=== PATIENT | female | born 1955 | race Caucasian/White ===

== ENCOUNTER → 2019-09-17 15:00 | Outpatient (BNVA) | payer MEDICARE, MEDICAID, SELFPAY | PROVIDERS: PCP Family Medicine; Visit Provider Family Medicine | DX: J30.2 Other seasonal allergic rhinitis (principal); G89.29 Other chronic pain; K21.9 Gastro-esophageal reflux disease without esophagitis; F33.1 Major depressive disorder, recurrent, moderate; D50.9 Iron deficiency anemia, unspecified; J44.9 Chronic obstructive pulmonary disease, unspecified; R60.9 Edema, unspecified; E03.9 Hypothyroidism, unspecified; I10 Essential (primary) hypertension; E78.5 Hyperlipidemia, unspecified; F41.9 Anxiety disorder, unspecified; E78.2 Mixed hyperlipidemia; E11.65 Type 2 diabetes mellitus with hyperglycemia; Z79.4 Long term (current) use of insulin; R30.0 Dysuria; R60.0 Localized edema | CPT/HCPCS: 80053; 80061; 81003; 83036; 84443; 85025 ==

== ENCOUNTER → 2019-11-01 14:42 | Outpatient (BNVA) | payer MEDICARE, MEDICAID, SELFPAY | PROVIDERS: PCP Family Medicine; Visit Provider Nurse Practitioner Family | DX: L03.116 Cellulitis of left lower limb (principal); L03.115 Cellulitis of right lower limb | CPT/HCPCS: 80053; 83880; 85025 ==

== ENCOUNTER → 2020-05-28 13:25 | Outpatient (BNVA) | payer MEDICARE, MEDICAID, SELFPAY | PROVIDERS: PCP Family Medicine; Visit Provider Family Medicine | DX: R32 Unspecified urinary incontinence (principal); F41.9 Anxiety disorder, unspecified; N30.01 Acute cystitis with hematuria | CPT/HCPCS: 81003; 87077; 87086; 87184 ==

== ENCOUNTER → 2021-10-29 09:21 | Outpatient (BNVA) | payer MEDICARE, MEDICAID, SELFPAY | PROVIDERS: PCP Family Medicine; Visit Provider Nurse Practitioner Family | DX: E11.9 Type 2 diabetes mellitus without complications (principal); Z79.4 Long term (current) use of insulin; E55.9 Vitamin D deficiency, unspecified; F32.9 Major depressive disorder, single episode, unspecified; I10 Essential (primary) hypertension | CPT/HCPCS: 80053; 80061; 82306; 82607; 83036; 83735; 84439; 84443; 85025 ==

== ENCOUNTER → 2022-01-08 11:43 | Outpatient (BNVA) | payer MEDICARE, MEDICAID, SELFPAY | PROVIDERS: PCP Family Medicine; Visit Provider Nurse Practitioner Family | DX: E03.9 Hypothyroidism, unspecified (principal); E55.9 Vitamin D deficiency, unspecified; I10 Essential (primary) hypertension; E11.9 Type 2 diabetes mellitus without complications; F41.9 Anxiety disorder, unspecified; J44.9 Chronic obstructive pulmonary disease, unspecified; Z09 Encounter for follow-up examination after completed treatment for conditions other than malignant neoplasm; Z79.4 Long term (current) use of insulin | CPT/HCPCS: 82306; 84443 ==

== ENCOUNTER → 2022-03-11 15:42 | Outpatient (BNVA) | payer MEDICARE, MEDICAID, SELFPAY | PROVIDERS: PCP Family Medicine; Visit Provider Nurse Practitioner Family | DX: Z01.89 Encounter for other specified special examinations (principal) | CPT/HCPCS: 85025 ==

== ENCOUNTER → 2022-03-12 08:43 | Outpatient (BNVA) | payer MEDICARE, MEDICAID, SELFPAY | PROVIDERS: PCP Family Medicine; Visit Provider Nurse Practitioner Family | DX: I10 Essential (primary) hypertension (principal); E11.9 Type 2 diabetes mellitus without complications; J18.9 Pneumonia, unspecified organism; Z79.4 Long term (current) use of insulin; F41.9 Anxiety disorder, unspecified; E78.5 Hyperlipidemia, unspecified | CPT/HCPCS: 80053; 83036; 85025 ==

== ENCOUNTER → 2022-04-16 13:13 | Outpatient (BNVA) | payer MEDICARE, MEDICAID, SELFPAY | PROVIDERS: PCP Family Medicine; Visit Provider Nurse Practitioner Family | DX: E11.22 Type 2 diabetes mellitus with diabetic chronic kidney disease (principal); N18.31 Chronic kidney disease, stage 3a; Z79.4 Long term (current) use of insulin; F41.9 Anxiety disorder, unspecified; B37.2 Candidiasis of skin and nail; R11.0 Nausea; J44.9 Chronic obstructive pulmonary disease, unspecified | CPT/HCPCS: 80053; 80061 ==

== ENCOUNTER → 2022-06-17 16:57 | Outpatient (BNVA) | payer MEDICARE, MEDICAID, SELFPAY | PROVIDERS: PCP Family Medicine; Visit Provider Nurse Practitioner Family | DX: E11.22 Type 2 diabetes mellitus with diabetic chronic kidney disease (principal); I12.9 Hypertensive chronic kidney disease with stage 1 through stage 4 chronic kidney disease, or unspecified chronic kidney disease; N18.31 Chronic kidney disease, stage 3a; Z79.4 Long term (current) use of insulin; E78.5 Hyperlipidemia, unspecified | CPT/HCPCS: 80053; 80061; 83036 ==

== ENCOUNTER → 2022-11-17 14:28 | Outpatient (BNVA) | payer MEDICARE, MEDICAID, SELFPAY | PROVIDERS: PCP Family Medicine; Visit Provider Nurse Practitioner Family | DX: K21.9 Gastro-esophageal reflux disease without esophagitis (principal); E11.22 Type 2 diabetes mellitus with diabetic chronic kidney disease; I12.9 Hypertensive chronic kidney disease with stage 1 through stage 4 chronic kidney disease, or unspecified chronic kidney disease; N18.31 Chronic kidney disease, stage 3a; E55.9 Vitamin D deficiency, unspecified; E78.5 Hyperlipidemia, unspecified; J44.9 Chronic obstructive pulmonary disease, unspecified; E03.9 Hypothyroidism, unspecified; F32.9 Major depressive disorder, single episode, unspecified; F41.9 Anxiety disorder, unspecified; G89.29 Other chronic pain | CPT/HCPCS: 80053; 80061; 83036; 84443 ==

== ENCOUNTER → 2023-01-28 10:33 | Outpatient (BNVA) | payer MEDICARE, MEDICAID, SELFPAY | PROVIDERS: PCP Family Medicine; Visit Provider Nurse Practitioner Family | DX: E55.9 Vitamin D deficiency, unspecified (principal); I10 Essential (primary) hypertension; E78.5 Hyperlipidemia, unspecified; E11.9 Type 2 diabetes mellitus without complications; R05.9 Cough, unspecified; K59.00 Constipation, unspecified; Z79.4 Long term (current) use of insulin; E03.9 Hypothyroidism, unspecified; J44.9 Chronic obstructive pulmonary disease, unspecified; J06.9 Acute upper respiratory infection, unspecified; B35.1 Tinea unguium; R19.7 Diarrhea, unspecified; K21.9 Gastro-esophageal reflux disease without esophagitis; F41.9 Anxiety disorder, unspecified | CPT/HCPCS: 80053; 82306 ==

== ENCOUNTER → 2023-05-25 17:00 | Outpatient (BNVA) | payer MEDICARE, MEDICAID, SELFPAY | PROVIDERS: PCP Family Medicine; Visit Provider Nurse Practitioner Family | DX: N18.31 Chronic kidney disease, stage 3a (principal); I10 Essential (primary) hypertension; E78.5 Hyperlipidemia, unspecified; E11.9 Type 2 diabetes mellitus without complications; Z79.4 Long term (current) use of insulin; E55.9 Vitamin D deficiency, unspecified; R68.89 Other general symptoms and signs; R53.1 Weakness; M25.562 Pain in left knee | CPT/HCPCS: 80053; 80061; 82306; 82607; 82746; 83036; 83550 ==

== ENCOUNTER 2023-11-01 15:10 | Emergency (ER) | payer MEDICARE, MEDICAID, SELFPAY ==
[2023-11-01] VITALS (9 sets, daily range): BP systolic 80–134; BP diastolic 54–78; PULSE 85–93; RESP 16–22; TEMP 36.6; O2SAT 95–98; BMI 48.8
--- NOTE | 2023-11-01 15:11 | ECG_ITS ---
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 Measurements Intervals [place] Rate: 87 P: 26 AL: 185 QRS: 1 QRSD: 74 T: 53 QT: 351 QTc: 423 Interpretive Statements SINUS RHYTHM WITH SINUS ARRHYTHMIA POSSIBLE ANTERIOR MYOCARDIAL INFARCTION , OF INDETERMINATE AGE [30 ms Q WAVE IN V3/V4, OR R < 0.2 mV IN V4] No previous ECG available for comparison Electronically Signed On 11-01-2023 21:42:31 CDT by Gio Lujan M.D. [email or web address] [email or web address].[email or web address]/store/[id number] f
--- NOTE | 2023-11-01 15:16 | XRR_ITS ---
PROCEDURE INFORMATION: Exam: XR Chest Exam date and time: 11/01/2023 3:19 PM Age: 68 years old Clinical indication: Cough and dyspnea; Cough with hemorrhage; Prior surgery; Surgery date: 6+ months; Surgery type: Open heart; Additional info: Dyspnea/cough TECHNIQUE: Imaging protocol: Radiologic exam of the chest. Views: 1 view. COMPARISON: No relevant prior studies available. FINDINGS: Lungs: No focal consolidation. Bibasilar subsegmental atelectasis. Pleural spaces: No evidence of pneumothorax. No evidence of pleural effusion. Heart/Mediastinum: Postsurgical changes of the mediastinum compatible with prior CABG. Cardiomediastinal silhouette is otherwise within normal limits. Bones/joints: No evidence of acute osseous abnormality. XR/XR chest 1V portable [id number] IMPRESSION: 1. No acute cardiopulmonary abnormality.
--- NOTE | 2023-11-01 15:28 | W.ED.CHESTPA ---
HPI - Chest Pain General: Chief Complaint: Chest Pain Stated Complaint: chest pain Time Seen by Provider: 11/01/23 15:15 Source: patient Mode of arrival: ambulatory History of Present Illness: 68-year-old female presents emergency room complaining of chest pain that started about 2 hours prior while she was at rest she did take nitro for it had slight relief of the chest discomfort she taken to before she called EMS also took 324 of aspirin. She was given 1 nitro and route by EMS. On arrival here she is complaining of some shortness of breath she is chronically on 3 L but is satting 97-98% on 2 L. She has not noticed any fever sweats or chills or productive cough no increased in swelling. MD complaint: chest pain Associated symptoms: Deny abdominal pain, dyspnea or fever(s) Review of Systems Const: Denies: fever(s) or chills Card: Denies: chest pain Resp: Denies: dyspnea GI: Denies: abdominal pain : Denies: dysuria, urinary frequency or urinary urgency Musc: Denies: neck pain or back pain Skin/Breast: Denies: rash PFSH ED PFSH: Medical History Enrolled in chronic care management Diabetes Hypertension Hyperlipidemia COPD (chronic obstructive pulmonary disease) Hypothyroid Depression Anxiety Chronic pain Social History Smoking and tobacco/nicotine status: former use of tobacco/nicotine Second hand smoke exposure: Yes Alcohol intake: never Substance/Drug Use: never Lives independently: Yes Household members: none Current gender identity: Female Physical Exam Const: GENERAL APPEARANCE: cooperative and comfortable ORIENTATION/CONSCIOUSNESS: Yes awake, Yes oriented to person, Yes oriented to place and Yes oriented to time HENMT: COMMON NORMALS: normocephalic, atraumatic and hearing grossly normal bilaterally HEAD & SCALP: normocephalic and atraumatic Resp: AUSCULTATION: wheezes and diminished lung sounds on the right Cardio: COMMON NORMALS: regular rate, regular rhythm and No murmurs present (Cardio) RATE: regular rate RHYTHM: regular rhythm GI: COMMON NORMALS: Soft to palpation and No hepatosplenomegaly present AUSCULTATION: Yes normoactive bowel sounds PALPATION: Yes Soft to palpation, No Tenderness to palpation present (GI), No Guarding due to palpation present (GI) and Yes No hepatosplenomegaly present Extremity: COMMON NORMALS: normal to inspection, capillary refill normal and no calf tenderness GENERAL: Yes edema Neuro: SENSORIUM/ORIENTATION: Yes oriented to person, Yes oriented to place and Yes oriented to time Skin: COMMON NORMALS: no rashes or lesions noted GENERAL SKIN EXAM: no rashes or lesions noted Course Vital Signs: Vital signs: Vital Signs Temperature 97.9 F 11/01/23 15:11 Pulse Rate 92 11/01/23 16:42 Respiratory Rate 18 11/01/23 16:42 Blood Pressure 123/74 11/01/23 16:42 Pulse Oximetry 95 11/01/23 16:42 Oxygen Delivery Me thod Room Air 11/01/23 16:42 Oxygen Flow Rate 2 11/01/23 15:52 MDM - Chest Pain Medical Decision Making EKG shows normal sinus rhythm no acute ST changes. Reviewed at the time was completed Care signed out to Dr. Hill at change of shift. See final notes for diagnosis and disposition. Lab Data Radiology Impressions Chest X-Ray 11/01/23 15:16 IMPRESSION: 1. No acute cardiopulmonary abnormality. Laboratory Results Specimen Type Arterial 11/01/23 15:34 Sample Site Radial, right 11/01/23 15:34 ABG pH 7.41 (7.35-7.45) 11/01/23 15:34 ABG pCO2 52.9 mmHg (35-45) H 11/01/23 15:34 ABG pO2 76.5 mmHg (80.0-100.0) L 11/01/23 15:34 ABG PO2/FiO2 Ratio 0 11/01/23 15:34 ABG HCO3 33.2 mmol/L (22-26) H 11/01/23 15:34 ABG O2 Saturation 97.2 11/01/23 15:34 ABG Base Excess 7.1 mmol/L (-2.0-2.0) H 11/01/23 15:34 Faustino Test Pos 11/01/23 15:34 A-a O2 Gradient 7.5 mmHg (5-10) 11/01/23 15:34 Hematocrit 35.1 % (37-47) L 11/01/23 15:34 Hgb O2 Saturation 95.2 % (95-100) 11/01/23 15:34 Carboxyhemoglobin 1.3 %THgb (0.4-20.1) 11/01/23 15:34 Methemoglobin 0.7 % (0.4-1.5) 11/01/23 15:34 Total Hemoglobin 11.4 g/dL (12-16) L 11/01/23 15:34 Sodium 139.0 mmol/L (131-143) 11/01/23 15:34 Potassium 4.4 mmol/L (3.5-5.0) 11/01/23 15:34 Glucose 341.0 mg/dL (70-115) H 11/01/23 15:34 Ionized Calcium 1.2 mmol/L (1.1-1.4) 11/01/23 15:34 O2 Delivery Device Nc 11/01/23 15:34 O2 Liters/Min 2.0 % 11/01/23 15:34 FiO2 28.0 % 11/01/23 15:34 Driver Wheelchair ID [email or web address] 11/01/23 15:34 XR interpretation done by ED provider, pending radiology final review Discharge Plan Discharge Condition: Stable Prescriptions: No Action (DME) NEBULIZER AND SUPPLIES See Rx Instructions .Route .MEDSUPPLY Qty: 1 0RF Rx Instructions: As directed (DME) pen needle, diabetic [Pen Needle] 32 gauge x 5/32 needle See Rx Instructions .ROUTE .MEDSUPPLY Qty: 100 5RF Rx Instructions: As directed albuterol sulfate [ProAir HFA] 90 mcg/actuation HFA aerosol inhaler 2 puff inhalation 6XD PRN (Reason: shortness of breath or wheezing) Qty: 8.5 6RF True Metrix Glucose Test Strip Strip See Rx Instructions .ROUTE .COMPLEX Qty: 100 3RF Dose Instruction: test THREE TIMES DAILY Rx Instructions: test THREE TIMES DAILY (DME) insulin syringe-needle U-100 [BD Insulin Syringe Micro-Fine] 1 mL 28 gauge x 1/2 syringe See Rx Instructions .Route Qty: 100 0RF Rx Instructions: As directed nystatin 100,000 unit/gram cream 1 applic topical QID Qty: 30 3RF pioglitazone [Actos] 45 mg tablet 45 mg PO DAILY 90 Days Qty: 90 1RF esomeprazole magnesium [Nexium] 40 mg capsule,delayed release(DR/EC) 40 mg PO DAILY 90 Days Qty: 90 1RF glipizide 10 mg tablet extended release 24hr 10 mg PO DAILY 90 Days Qty: 90 1RF alprazolam [Xanax] 1 mg tablet 1 mg PO BID PRN (Reason: anxiety) Qty: 60 1RF Breztri Aerosphere 160-9-4.8 mcg/actuation HFA aerosol inhaler 2 inh inhalation BID 30 Days Qty: 10.7 11RF triamcinolone acetonide 0.5 % cream 1 applic topical TID Qty: 15 3RF nitroglycerin 0.4 mg tablet, sublingual 0.4 mg sublingual Q5M PRN (Reason: chest pain) Qty: 25 4RF Rx Instructions: do not exceed 3 doses per episode (DME) EASY MAX Z TALKING METER STRIPS See Rx Instructions .Route .MEDSUPPLY Qty: 50 6RF Rx Instructions: TESTING TWICE DAILY docusate sodium 250 mg capsule 250 mg PO DAILY Qty: 30 2RF magnesium citrate [Citrate of Magnesia] Solution 296 ml PO .now Qty: 296 1RF tolterodine [Detrol] 1 mg tablet 1 mg PO BID Qty: 60 0RF Referrals: Jana Hall NP [Primary Care Provider] - Coding Level of Care Code ED Disease Intervention Specialist for Devonte Plasencia
[2023-11-01 15:46] LABS: ABG PCO2 52.9 mmHg (35-45); ABG PH Result 7.41 (7.35-7.45); Alveolar-Arterial Oxygen Gradi 7.5 mmHg (5-10); Arterial Blood Gas Hematocrit 35.1 % (37-47); Base Excess ABG 7.1 mmol/L (-2.0-2.0); Blood Gas Allen Test Pos; Blood Gas Operator Identificat glc; Blood Gas Sample Site Radial, right; Blood Gas Sample Type Arterial; Carboxyhemoglobin 1.3 %THgb (0.4-20.1); HCO3 ABG 33.2 mmol/L (22-26); HGB O2 Sat 95.2 % (95-100); Ionized Calcium Level - ABG 1.2 mmol/L (1.1-1.4); Methemoglobin 0.7 % (0.4-1.5); Oxygen Device NC; Oxygen Saturation ABG 97.2; PO2 ABG 76.5 mmHg (80.0-100.0); PO2 FiO2 Ratio Arterial Blood 0; Potassium Level - ABG 4.4 mmol/L (3.5-5.0); Total Hemoglobin 11.4 g/dL (12-16)
[2023-11-01] MEDS: ondansetron 2 mg/ML SDV 2 mL 4 MG IVP (15:51)
--- NOTE | 2023-11-01 17:16 | ECG_ITS ---
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 Measurements Intervals [place] Rate: 84 P: 0 IA: 141 QRS: 1 QRSD: 82 T: 74 QT: 361 QTc: 429 Interpretive Statements SINUS RHYTHM WITH SINUS ARRHYTHMIA NONSPECIFIC T-WAVE ABNORMALITY Compared to ECG 11/01/2023 15:11:36 T-wave abnormality now present Myocardial infarct finding no longer present Electronically Signed On 11-02-2023 18:35:56 CDT by Gio Lujan M.D. [id number]
[2023-11-01] MEDS: ketorolac 30 mg/mL INJ IVP (17:55)
[2023-11-01 18:07] LABS: Basophils # 0.1 10^3/uL (0.0-0.1); Basophils % 0.8 %; Eosinophils # 0.6 10^3/uL (0.0-0.8); Eosinophils % 7.3 %; Hematocrit 37.5 % (36-47); Lymphocytes # 3.2 10^3/uL (0.8-4.8); Lymphocytes % 43.1 %; Mean Corpuscular HGB Conc 30.9 g/dL (30-55); Mean Corpuscular Hemoglobin 27.8 pg (27-33); Mean Corpuscular Volume 89.9 fl (85-98); Mean Platelet Volume 10.2 fL (7.4-10.4); Monocytes # 0.4 10^3/uL (0.2-0.9); Monocytes % 5.9 %; Neutrophils # 3.18 10^3/uL (1.8-7.7); Neutrophils % 42.5 %; Nucleated Red Blood Cells % 0 %; Platelet Count 357 10^3/cmm (157-399); Red Blood Count 4.17 10^6/uL (3.85-5.65); Red Cell Distribution Width 14.7 % (12.1-15.1); White Blood Count 7.49 10^3/uL (3.29-11.43)
[2023-11-01 18:33] LABS: Troponin(5th) Baseline 26 ng/L (0-10)
[2023-11-01 18:43] LABS: Alanine Aminotransferase 14 U/L (0-33); Albumin Level 3.8 g/dL (3.5-5.2); Alkaline Phosphatase 175 U/L (35-105); Anion Gap 14.9 (5-19); Aspartate Amino Transferase 22 U/L (0-32); Blood Urea Nitrogen 16 mg/dL (8-23); Calcium 8.8 mg/dL (8.5-10.5); Carbon Dioxide 31 mmol/L (22-29); Chloride 94 mmol/L (98-107); Creatinine Clr Calc Pharmacy 76.1282; Glucose 281 mg/dL (65-115); Osmolality Calculated 291 mOsm/kg (285-295); Potassium 4.9 mmol/L (3.5-5.1); Sodium 135 mmol/L (136-145); Total Bilirubin 0.2 mg/dL (0.15-1.2); Total Protein 6.8 g/dL (6.6-8.7)
[2023-11-01 18:48] LABS: Ketone (Acetest) Serum Negative (Negative)
[2023-11-01 20:53] LABS: Troponin 5 2HR 31.26 ng/L (0-10); Troponin 5 2HR Delta 5.26 ABS# (0-10)
== END 2023-11-01 22:58 | disposition home or self-care (01) ==
PROVIDERS: Family Medicine; Emergency Provider Emergency Medicine; PCP Nurse Practitioner Family
DX: R07.9 Chest pain, unspecified (principal); Z79.84 Long term (current) use of oral hypoglycemic drugs; E11.9 Type 2 diabetes mellitus without complications; I10 Essential (primary) hypertension; E78.5 Hyperlipidemia, unspecified; J44.9 Chronic obstructive pulmonary disease, unspecified; Z87.891 Personal history of nicotine dependence
CPT/HCPCS: 36415; 36600; 71045; 80051; 80053; 82009; 82330; 82805; 83605; 84484; 85025; 93005; 96374; 96375; 99285; J1885; J2405

== ENCOUNTER → 2023-11-17 13:35 | Outpatient (BNVA) | payer MEDICARE, MEDICAID, SELFPAY | PROVIDERS: PCP Nurse Practitioner Family; Visit Provider Nurse Practitioner Family | DX: N18.31 Chronic kidney disease, stage 3a (principal); Z79.4 Long term (current) use of insulin; E11.9 Type 2 diabetes mellitus without complications; E55.9 Vitamin D deficiency, unspecified; E03.9 Hypothyroidism, unspecified; F41.9 Anxiety disorder, unspecified; F33.0 Major depressive disorder, recurrent, mild; I10 Essential (primary) hypertension; L01.00 Impetigo, unspecified | CPT/HCPCS: 80053; 80061; 83036; 85025 ==

== ENCOUNTER 2024-03-26 04:55 | Inpatient (IN) | payer MEDICARE, MEDICAID, SELFPAY ==
[2024-03-26] VITALS (33 sets, daily range): BP systolic 114–192; BP diastolic 58–97; PULSE 52–113; RESP 13–28; TEMP 36.7; O2SAT 92–98; BMI 43.5
--- NOTE | 2024-03-26 04:58 | ECG_ITS ---
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 Measurements Intervals [place] Rate: 114 P: 61 DE: 175 QRS: 13 QRSD: 78 T: 28 QT: 323 QTc: 446 Interpretive Statements SINUS TACHYCARDIA SEPTAL MYOCARDIAL INFARCTION , PROBABLY OLD [40+ ms Q WAVE IN V1/V2] Compared to ECG 11/01/2023 17:51:12 Myocardial infarct finding now present Sinus rhythm no longer present Sinus arrhythmia no longer present T-wave abnormality no longer present Electronically Signed On 03-26-2024 16:07:07 CDT by Daniel Villalta M.D. [id number]
--- NOTE | 2024-03-26 05:10 | XRR_ITS ---
PROCEDURE INFORMATION: Exam: XR Chest Exam date and time: 03/26/2024 5:17 AM Age: 68 years old Clinical indication: Shortness of breath; Chest pressure; Prior surgery; Surgery date: 6+ months; Surgery type: Open heart; Patient HX: C/O chest pain with SOB. History of copd. ; Additional info: Cp SOB TECHNIQUE: Imaging protocol: Radiologic exam of the chest. Views: 1 view. COMPARISON: CR XR chest 1V portable [id number] 11/01/2023 3:19 PM FINDINGS: Tubes, catheters and devices: Median sternotomy suture wires. Lungs: Mild bibasilar hypoventilatory changes. Pleural spaces: Unremarkable. No pleural effusion. No pneumothorax. Heart/Mediastinum: Unremarkable. No cardiomegaly. Bones/joints: Unremarkable. XR/XR chest 1V portable [id number] IMPRESSION: No acute findings.
[2024-03-26] MEDS: metoprolol tartrate 1 mg/1 mL SDV 5 mL 5 MG IVP (05:31)
--- NOTE | 2024-03-26 05:43 | PC.NURSE ---
attempted to draw labs from pt x3 and also attempted to draw from her IV without success. Lab was contacted to come draw the pt.
--- NOTE | 2024-03-26 05:48 | ED_ITS ---
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 She says she has no cardiac history, but has sternal wires on her chest x-ray. She presents after waking this morning with chest discomfort. She says she has been more short of breath lately, no increased cough or no fever. She was found by EMS evidently to have a heart rate in the 200s. She received promethazine, 200 mL bolus, and aspirin, and evidently this resolved her supraventricular tachycardia. Her heart rate came down to the 120s. Her chest pain is gone. She still exhibiting shortness of breath she says. She relates to me that she wears 3 L of oxygen at all times at home. Related Data Home Medications Medication Instructions Recorded Confirmed insulin glargine 100 unit/mL 10 unit SUBCUT DAILY 03/01/24 03/26/24 subcutaneous solution (Lantus U-100 Insulin) albuterol sulfate 2.5 mg/3 mL 2.5 mg inhalation TID PRN 03/26/24 03/26/24 (0.083 %) solution for nebulization Shortness Of Breath Or Wheezing albuterol sulfate 90 mcg/actuation 2 puff inhalation 6XD PRN 03/26/24 03/26/24 aerosol inhaler (Ventolin HFA) Shortness Of Breath Or Wheezing glipizide 10 mg tablet, extended 20 mg PO QAM 03/26/24 03/26/24 release 24 hr Previous Rx's Medication Instructions Recorded NEBULIZER AND SUPPLIES #1 ea 11/20/21 EASY MAX Z TALKING METER STRIPS #50 ea 07/21/23 budesonide 160 mcg-glycopyr 9 2 inh inhalation BID 30 days #10.7 10/13/23 mcg-formot 4.8 mcg/actuation HFA grams inhaler (Breztri Aerosphere) nitroglycerin 0.4 mg sublingual 0.4 mg sublingual Q5M PRN chest 11/04/23 tablet pain #25 tabs alprazolam 1 mg tablet 1 mg PO BID anxiety 30 days #60 03/01/24 tabs esomeprazole magnesium 40 mg 40 mg PO DAILY 90 days #90 caps 03/01/24 capsule,delayed release (Nexium) pen needle, diabetic 32 gauge x #100 ea 03/01/24 (Pen Needle) pioglitazone 45 mg tablet (Actos) 45 mg PO DAILY 90 days #90 tabs 03/01/24 montelukast 10 mg tablet 10 mg PO DAILY 90 days #90 tabs 03/23/24 Allergies Allergy/AdvReac Type Severity Reaction Status Date / Time Biguanides Allergy Unknown Unknown Verified 03/26/24 05:09 amitriptyline Allergy Unknown Verified 03/26/24 05:09 dapagliflozin [From Farxiga] Allergy rash Verified 03/26/24 05:09 desvenlafaxine [From Pristiq] Allergy worsens Verified 03/26/24 05:09 depression diazepam Allergy Unknown Verified 03/26/24 05:09 diphenhydramine Allergy wheezing Verified 03/26/24 05:09 [From Benadryl] hydrocodone Allergy itching Verified 03/26/24 05:09 meloxicam Allergy gi symptoms Verified 03/26/24 05:09 metformin Allergy gi symptoms Verified 03/26/24 05:09 moxifloxacin [From Avelox] Allergy Unknown Verified 03/26/24 05:09 rofecoxib [From Vioxx] Allergy Unknown Verified 03/26/24 05:09 sertraline [From Zoloft] Allergy worsens Verified 03/26/24 05:09 depression Sulfa (Sulfonamide Allergy gi Verified 03/26/24 05:09 Antibiotics) symptoms, rash atorvastatin [From Lipitor] AdvReac myalgias Verified 03/26/24 05:09 lorazepam [From Ativan] AdvReac myoclonic Verified 03/26/24 05:09 jerking paroxetine [From Paxil] AdvReac worsens Verified 03/26/24 05:09 depression tirzepatide [From Mounjaro] AdvReac ADR-Diarrhe Verified 03/26/24 05:09 a [facility] ED 2 PFSH: Medical History (Updated 03/26/24 @ 19:55 by Radha Cleaning MD) Obesity Coronary artery disease Enrolled in chronic care management Diabetes Hypertension Hyperlipidemia COPD (chronic obstructive pulmonary disease) Hypothyroid Depression Anxiety Chronic pain Surgical History (Updated 03/26/24 @ 09:55 by Loy Zhou MD) History of hysterectomy History of coronary artery bypass graft Social History (Updated 03/26/24 @ 09:56 by Loy Zhou MD) Smoking and tobacco/nicotine status: former use of tobacco/nicotine Second hand smoke exposure: Yes Alcohol intake: never Substance/Drug Use: never Lives independently: Yes Household members: none Current gender identity: Female Physical Exam 2 Const: COMMON NORMALS: no acute distress GENERAL APPEARANCE: cooperative, anxious, ill appearing (Mildly) and frail appearing O RIENTATION/CONSCIOUSNESS: Yes awake, Yes oriented to person and Yes oriented to place HENMT: COMMON NORMALS: normocephalic HEAD & SCALP: normocephalic FACE & SINUS: face symmetric Eye: COMMON NORMALS: Equal, round and reactive pupils present and EOMs intact bilaterally PUPIL: Yes Equal, round and reactive pupils present Neck/C-Spine: GENERAL: Yes trachea midline Resp: COMMON NORMALS: normal respiratory effort and clear to auscultation bilaterally AUSCULTATION: clear to auscultation bilaterally Cardio: COMMON NORMALS: regular rhythm RATE: tachycardic RHYTHM: regular rhythm Neuro: SENSORIUM/ORIENTATION: Yes oriented to person and Yes oriented to place Course 2 Vital Signs: Vital signs: Vital Signs Temperature 98.0 F 03/26/24 04:57 Pulse Rate 78 03/26/24 20:17 Respiratory Rate 16 03/26/24 20:17 Blood Pressure 143/58 03/26/24 17:09 Pulse Oximetry 97 03/26/24 20:17 Oxygen Delivery Me thod Nasal Cannula 03/26/24 20:17 Oxygen Flow Rate 2 03/26/24 20:17 MDM - Chest Pain Medical Decision Making 68-year-old female, with history of COPD and some sort of heart disease. She presents with chest discomfort and tachycardia. Tachycardia is improved. Blood pressure is much improved, now 115/64. Laboratories pending. Radiology is pending as well. She will be checked out at shift change. Lab Data 03/26/24 06:47 03/26/24 06:47 Radiology Impressions Chest X-Ray 03/26/24 05:10 IMPRESSION: No acute findings. Laboratory Results WBC 8.51 10^3/uL (3.29-11.43) 03/26/24 06:47 RBC 4.45 10^6/uL (3.85-5.65) 03/26/24 06:47 Hgb 12.50 g/dL (11.27-16.99) 03/26/24 06:47 Hct 40.6 % (36-47) 03/26/24 06:47 MCV 91.2 fl (85-98) 03/26/24 06:47 MCH 28.1 pg (27-33) 03/26/24 06:47 MCHC 30.8 g/dL (30-55) 03/26/24 06:47 RDW 14.7 % (12.1-15.1) 03/26/24 06:47 Plt Count 322 10^3/cmm (157-399) 03/26/24 06:47 MPV 10.7 fL (7.4-10.4) H 03/26/24 06:47 Neut % (Auto) 58.0 % 03/26/24 06:47 Lymph % (Auto) 29.4 % 03/26/24 06:47 Laurens % (Auto) 6.8 % 03/26/24 06:47 Eos % (Auto) 4.0 % 03/26/24 06:47 Baso % (Auto) 0.9 % 03/26/24 06:47 Neut # (Auto) 4.93 10^3/uL (1.8-7.7) 03/26/24 06:47 Lymph # (Auto) 2.5 10^3/uL (0.8-4.8) 03/26/24 06:47 [place]rens # (Auto) 0.6 10^3/uL (0.2-0.9) 03/26/24 06:47 Eos # (Auto) 0.3 10^3/uL (0.0-0.8) 03/26/24 06:47 Baso # (Auto) 0.1 10^3/uL (0.0-0.1) 03/26/24 06:47 Nucleated RBC % (auto) 0 % 03/26/24 06:47 Nucleated RBCs # 0.0 /100WBC 03/26/24 06:47 PT 13.10 SECONDS (12.1-14.9) 03/26/24 08:00 INR 0.96 (0.8-1.2) 03/26/24 08:00 APTT 32.3 SECONDS (23.9-36.7) 03/26/24 08:00 Sodium 137 mmol/L (136-145) 03/26/24 06:47 Potassium 4.0 mmol/L (3.5-5.1) 03/26/24 06:47 Chloride 98 mmol/L (98-107) 03/26/24 06:47 Carbon Dioxide 27 mmol/L (22-29) 03/26/24 06:47 Anion Gap 16.0 (5-19) 03/26/24 06:47 BUN 15 mg/dL (8-23) 03/26/24 06:47 Creatinine 0.7 mg/dL (0.5-0.9) 03/26/24 06:47 GFR Calculation 83.0 mL/min (90-130) L 03/26/24 06:47 Glucose 304 mg/dL (65-115) H 03/26/24 06:47 Calculated Osmolality 296 mOsm/kg (285-295) H 03/26/24 06:47 Calcium 8.7 mg/dL (8.5-10.5) 03/26/24 06:47 Magnesium 2.1 mg/dL (1.7-2.3) 03/26/24 06:47 Total Bilirubin 0.2 mg/dL (0.15-1.2) 03/26/24 06:47 AST 18 U/L (0-32) 03/26/24 06:47 ALT 13 U/L (0-33) 03/26/24 06:47 Alkaline Phosphatase 170 U/L (35-105) H 03/26/24 06:47 Creatine Kinase 178 U/L (26-192) 03/26/24 06:47 Troponin T Baseline 65 ng/L (0-10) H 03/26/24 06:47 Troponin T 120 Minute 112.9 ng/L (0-10) H 03/26/24 08:00 Delta Troponin T 47.9 ABS# (0-10) H* 03/26/24 08:00 NT-Pro-B Natriuret Pep 150 pg/mL (0-125) H 03/26/24 06:47 Total Protein 7.3 g/dL (6.6-8.7) 03/26/24 06:47 Albumin 3.6 g/dL (3.5-5.2) 03/26/24 06:47 Globulin 3.7 g/dL (1.3-4.6) 03/26/24 06:47 TSH 5.35 uIU/mL (0.27-4.20) H 03/26/24 06:47 Discharge Plan Discharge Patient Disposition: Placed in Observation Admit Provider: Loy Zhou Clinical Impression: Chest pain, Non-ST elevated myocardial infarction Coding Level of Care Code ED Senior Environmental Practice Leader for Chg Fwd Documented by User: Ibis Alcazar MD 03/26/24 09:19 HPI - Chest Pain 2 General: Chief Complaint: Chest Pain Stated Complaint: fast HR Time Seen by Provider: 03/26/24 05:00 Related Data Home Medications Medication Instructions Recorded Confirmed insulin glargine 100 unit/mL 10 unit SUBCUT DAILY 03/01/24 03/26/24 subcutaneous solution (Lantus U-100 Insulin) albuterol sulfate 2.5 mg/3 mL 2.5 mg inhalation TID PRN 03/26/24 03/26/24 (0.083 %) solution for nebulization Shortness Of Breath Or Wheezing albuterol sulfate 90 mcg/actuation 2 puff inhalation 6XD PRN 03/26/24 03/26/24 aerosol inhaler (Ventolin HFA) Shortness Of Breath Or Wheezing glipizide 10 mg tablet, extended 20 mg PO QAM 03/26/24 03/26/24 release 24 hr Previous Rx's Medication Instructions Recorded NEBULIZER AND SUPPLIES #1 ea 11/20/21 EASY MAX Z TALKING METER STRIPS #50 ea 07/21/23 budesonide 160 mcg-glycopyr 9 2 inh inhalation BID 30 days #10.7 10/13/23 mcg-formot 4.8 mcg/actuation HFA grams inhaler (Breztri Aerosphere) nitroglycerin 0.4 mg sublingual 0.4 mg sublingual Q5M PRN chest 11/04/23 tablet pain #25 tabs alprazolam 1 mg tablet 1 mg PO BID anxiety 30 days #60 03/01/24 tabs esomeprazole magnesium 40 mg 40 mg PO DAILY 90 days #90 caps 03/01/24 capsule,delayed release (Nexium) pen needle, diabetic 32 gauge x #100 ea 03/01/24/32 (Pen Needle) pioglitazone 45 mg tablet (Actos) 45 mg PO DAILY 90 days #90 tabs 03/01/24 montelukast 10 mg tablet 10 mg PO DAILY 90 days #90 tabs 03/23/24 Allergies Allergy/AdvReac Type Severity Reaction Status Date / Time Biguanides Allergy Unknown Unknown Verified 03/26/24 05:09 amitriptyline Allergy Unknown Verified 03/26/24 05:09 dapagliflozin [From Farxiga] Allergy rash Verified 03/26/24 05:09 desvenlafaxine [From Pristiq] Allergy worsens Verified 03/26/24 05:09 depression diazepam Allergy Unknown Verified 03/26/24 05:09 diphenhydramine Allergy wheezing Verified 03/26/24 05:09 [From Benadryl] hydrocodone Allergy itching Verified 03/26/24 05:09 meloxicam Allergy gi symptoms Verified 03/26/24 05:09 metformin Allergy gi symptoms Verified 03/26/24 05:09 moxifloxacin [From Avelox] Allergy Unknown Verified 03/26/24 05:09 rofecoxib [From Vioxx] Allergy Unknown Verified 03/26/24 05:09 sertraline [From Zoloft] Allergy worsens Verified 03/26/24 05:09 depression Sulfa (Sulfonamide Allergy gi Verified 03/26/24 05:09 Antibiotics) symptoms, rash atorvastatin [From Lipitor] AdvReac myalgias Verified 03/26/24 05:09 lorazepam [From Ativan] AdvReac myoclonic Verified 03/26/24 05:09 jerking paroxetine [From Paxil] AdvReac worsens Verified 03/26/24 05:09 depression tirzepatide [From Mounjaro] AdvReac ADR-Diarrhe Verified 03/26/24 05:09 a [facility] ED 2 PFSH: Medical History (Updated 03/26/24 @ 19:55 by Radha Cleaning MD) Obesity Coronary artery disease Enrolled in chronic care management Diabetes Hypertension Hyperlipidemia COPD (chronic obstructive pulmonary disease) Hypothyroid Depression Anxiety Chronic pain Surgical History (Updated 03/26/24 @ 09:55 by Loy Zhou MD) History of hysterectomy History of coronary artery bypass graft Social History (Updated 03/26/24 @ 09:56 by Loy Zhou MD) Smoking and tobacco/nicotine status: former use of tobacco/nicotine Second hand smoke exposure: Yes Alcohol intake: never Substance/Drug Use: never Lives independently: Yes Household members: none Current gender identity: Female Course 2 Vital Signs: Vital signs: Vital Signs Temperature 98.0 F 03/26/24 04:57 Pulse Rate 78 03/26/24 20:17 Respiratory Rate 16 03/26/24 20:17 Blood Pressure 143/58 03/26/24 17:09 Pulse Oximetry 97 03/26/24 20:17 Oxygen Delivery Me thod Nasal Cannula 03/26/24 20:17 Oxygen Flow Rate 2 03/26/24 20:17 MDM - Chest Pain Medical Decision Making 68-year-old female, with history of COPD and some sort of heart disease. She presents with chest discomfort and tachycardia. Tachycardia is improved. Blood pressure is much improved, now 115/64. Laboratories pending. Radiology is pending as well. She will be checked out at shift change. Patient care transitioned to [place] at shift change: Medical decision making: Chest x-ray: Sternotomy wires. No acute process. No infiltrate. No pneumothorax. This was reviewed and interpreted by myself the ER physician. Lab Review: Laboratory results were reviewed and interpreted by myself the emergency room physician. I reviewed the patient's medical record. Reexamination: Patient has resolved chest pain. Expresses understanding of needing to be admitted. Patient remained stable. No increased work of breathing. No altered mental status. No focal motor deficits. Consultation: I spoke with Dr. Zhou who agrees to admit the patient to the [facility]. Assessment and plan: Chest pain Non-ST elevation myocardial infarction -I discussed the patient with the hospitalist on-call who is admitting the patient. - Discussed findings and plan with patient. Answered any questions. - All laboratory values were reviewed and interpreted personally by myself, the ER physician - All imaging was reviewed and interpreted personally by myself, the ER physician. - Evaluation and treatment of this problem were appropriate in the emergency setting Lab Data 03/26/24 06:47 03/26/24 06:47 Radiology Impressions Chest X-Ray 03/26/24 05:10 IMPRESSION: No acute findings. Laboratory Results WBC 8.51 10^3/uL (3.29-11.43) 03/26/24 06:47 RBC 4.45 10^6/uL (3.85-5.65) 03/26/24 06:47 Hgb 12.50 g/dL (11.27-16.99) 03/26/24 06:47 Hct 40.6 % (36-47) 03/26/24 06:47 MCV 91.2 fl (85-98) 03/26/24 06:47 MCH 28.1 pg (27-33) 03/26/24 06:47 MCHC 30.8 g/dL (30-55) 03/26/24 06:47 RDW 14.7 % (12.1-15.1) 03/26/24 06:47 Plt Count 322 10^3/cmm (157-399) 03/26/24 06:47 MPV 10.7 fL (7.4-10.4) H 03/26/24 06:47 Neut % (Auto) 58.0 % 03/26/24 06:47 Lymph % (Auto) 29.4 % 03/26/24 06:47 Laurens % (Auto) 6.8 % 03/26/24 06:47 Eos % (Auto) 4.0 % 03/26/24 06:47 Baso % (Auto) 0.9 % 03/26/24 06:47 Neut # (Auto) 4.93 10^3/uL (1.8-7.7) 03/26/24 06:47 Lymph # (Auto) 2.5 10^3/uL (0.8-4.8) 03/26/24 06:47 [place]rens # (Auto) 0.6 10^3/uL (0.2-0.9) 03/26/24 06:47 Eos # (Auto) 0.3 10^3/uL (0.0-0.8) 03/26/24 06:47 Baso # (Auto) 0.1 10^3/uL (0.0-0.1) 03/26/24 06:47 Nucleated RBC % (auto) 0 % 03/26/24 06:47 Nucleated RBCs # 0.0 /100WBC 03/26/24 06:47 PT 13.10 SECONDS (12.1-14.9) 03/26/24 08:00 INR 0.96 (0.8-1.2) 03/26/24 08:00 APTT 32.3 SECONDS (23.9-36.7) 03/26/24 08:00 Sodium 137 mmol/L (136-145) 03/26/24 06:47 Potassium 4.0 mmol/L (3.5-5.1) 03/26/24 06:47 Chloride 98 mmol/L (98-107) 03/26/24 06:47 Carbon Dioxide 27 mmol/L (22-29) 03/26/24 06:47 Anion Gap 16.0 (5-19) 03/26/24 06:47 BUN 15 mg/dL (8-23) 03/26/24 06:47 Creatinine 0.7 mg/dL (0.5-0.9) 03/26/24 06:47 GFR Calculation 83.0 mL/min (90-130) L 03/26/24 06:47 Glucose 304 mg/dL (65-115) H 03/26/24 06:47 Calculated Osmolality 296 mOsm/kg (285-295) H 03/26/24 06:47 Calcium 8.7 mg/dL (8.5-10.5) 03/26/24 06:47 Magnesium 2.1 mg/dL (1.7-2.3) 03/26/24 06:47 Total Bilirubin 0.2 mg/dL (0.15-1.2) 03/26/24 06:47 AST 18 U/L (0-32) 03/26/24 06:47 ALT 13 U/L (0-33) 03/26/24 06:47 Alkaline Phosphatase 170 U/L (35-105) H 03/26/24 06:47 Creatine Kinase 178 U/L (26-192) 03/26/24 06:47 Troponin T Baseline 65 ng/L (0-10) H 03/26/24 06:47 Troponin T 120 Minute 112.9 ng/L (0-10) H 03/26/24 08:00 Delta Troponin T 47.9 ABS# (0-10) H* 03/26/24 08:00 NT-Pro-B Natriuret Pep 150 pg/mL (0-125) H 03/26/24 06:47 Total Protein 7.3 g/dL (6.6-8.7) 03/26/24 06:47 Albumin 3.6 g/dL (3.5-5.2) 03/26/24 06:47 Globulin 3.7 g/dL (1.3-4.6) 03/26/24 06:47 TSH 5.35 uIU/mL (0.27-4.20) H 03/26/24 06:47 All radiology interpretation(s) finalized by discharge Discharge Plan Discharge Patient Disposition: Placed in Observation Admit Provider: Loy Zhou Clinical Impression: Chest pain, Non-ST elevated myocardial infarction Coding Level of Care Code ED Senior Environmental Practice Leader for Devonte Plasencia
--- NOTE | 2024-03-26 06:38 | PC.NURSE ---
pts bed was changed with clean, dry sheets and she was wiped with soap and water and dried at this time after an incontinent episode
[2024-03-26 07:15] LABS: Basophils # 0.1 10^3/uL (0.0-0.1); Basophils % 0.9 %; Eosinophils # 0.3 10^3/uL (0.0-0.8); Hematocrit 40.6 % (36-47); Lymphocytes # 2.5 10^3/uL (0.8-4.8); Lymphocytes % 29.4 %; Mean Corpuscular HGB Conc 30.8 g/dL (30-55); Mean Corpuscular Hemoglobin 28.1 pg (27-33); Mean Corpuscular Volume 91.2 fl (85-98); Mean Platelet Volume 10.7 fL (7.4-10.4); Monocytes # 0.6 10^3/uL (0.2-0.9); Monocytes % 6.8 %; Neutrophils # 4.93 10^3/uL (1.8-7.7); Nucleated Red Blood Cells % 0 %; Platelet Count 322 10^3/cmm (157-399); Red Blood Count 4.45 10^6/uL (3.85-5.65); Red Cell Distribution Width 14.7 % (12.1-15.1); White Blood Count 8.51 10^3/uL (3.29-11.43)
--- NOTE | 2024-03-26 07:34 | ECG_ITS ---
[facility] Test Date: 2024-03-26 Pat Name: Sabrina Delvalle Department: Room: Gender: Female Nut Grinder: : 1955 Requested By: Rik Cartwright Order Number: [id number] Duke MD: Daniel Villalta M.D. Measurements Intervals Laura Rate: 93 P: 16 HI: 185 QRS: 22 QRSD: 90 T: 63 QT: 353 QTc: 439 Interpretive Statements SINUS RHYTHM NONSPECIFIC T-WAVE ABNORMALITY Compared to ECG 03/26/2024 04:58:45 T-wave abnormality now present Sinus tachycardia no longer present Myocardial infarct finding no longer present Electronically Signed On 03-26-2024 16:09:49 CDT by Daniel Villalta M.D. [email or web address]
[2024-03-26 07:35] LABS: Troponin(5th) Baseline 65 ng/L (0-10)
[2024-03-26 07:42] LABS: Alanine Aminotransferase 13 U/L (0-33); Albumin Level 3.6 g/dL (3.5-5.2); Alkaline Phosphatase 170 U/L (35-105); Aspartate Amino Transferase 18 U/L (0-32); Blood Urea Nitrogen 15 mg/dL (8-23); Calcium 8.7 mg/dL (8.5-10.5); Carbon Dioxide 27 mmol/L (22-29); Chloride 98 mmol/L (98-107); Creatine Phosphokinase 178 U/L (26-192); Creatinine Clr Calc Pharmacy 76.7388; Globulin 3.7 g/dL (1.3-4.6); Glucose 304 mg/dL (65-115); NT Pro B Type Natriuretic Pept 150 pg/mL (0-125); Osmolality Calculated 296 mOsm/kg (285-295); Sodium 137 mmol/L (136-145); Thyroid Stimulating Hormone 5.35 uIU/mL (0.27-4.20); Total Bilirubin 0.2 mg/dL (0.15-1.2); Total Protein 7.3 g/dL (6.6-8.7)
[2024-03-26 08:34] LABS: Troponin 5 2HR 112.9 ng/L (0-10); Troponin 5 2HR Delta 47.9 ABS# (0-10)
[2024-03-26 08:57] LABS: INR 0.96 (0.8-1.2); Partial Thromboplastin Time 32.3 SECONDS (23.9-36.7)
[2024-03-26 09:30] LABS: Magnesium 2.1 mg/dL (1.7-2.3)
--- NOTE | 2024-03-26 09:30 | PM.HP ---
Providers/Chief Complaint Admitting Physician: Loy Zhou MD, hospitalist Primary Care Provider: Jana Hall NP Chief Complaint: fast HR History of Present Illness Sabrina Delvalle is a 68 year old female who presented to the hospital feeling severe heavy chest discomfort. She states this started around 10 PM. She tried to take her blood pressure, but it just said air. It was associated with shortness of breath, and some nausea. She denies any history of chest discomfort like this. She called the ambulance services, who told her her heart rate was very high. Strip indicates a narrow complex tachycardia of 208, identified as SVT. Will giving her fluids, and some promethazine for nausea she converted into sinus rhythm. Chest discomfort went away. She has a past history of coronary disease, oxygen dependent COPD, and multiple other medical problems. She currently reports she is chest discomfort free. She denies any fever, ill contacts. She states yesterday was the anniversary of the of her daughter, and she did not do anything all day, mainly sleeping until waking at night and experiencing the discomfort. Review of Systems General: Reports: 10 or more systems reviewed and unremarkable except in HPI and below Card: Reports: chest pain; Denies: palpitations Resp: Reports: dyspnea; Denies: productive cough or non-productive cough GI: Reports: nausea; Denies: abdominal pain, hematochezia or melena Medications/Allergies Home Medications Medication Instructions Recorded Confirmed Last Taken Type NEBULIZER AND SUPPLIES #1 ea 11/20/21 03/26/24 Unknown Rx EASY MAX Z TALKING METER STRIPS #50 ea 07/21/23 03/26/24 Unknown Rx budesonide 160 mcg-glycopyr 9 2 inh inhalation BID 30 days #10.7 10/13/23 03/26/24 03/25/24 Rx mcg-formot 4.8 mcg/actuation HFA grams inhaler (Breztri Aerosphere) nitroglycerin 0.4 mg sublingual 0.4 mg sublingual Q5M PRN chest 11/04/23 03/26/24 Unknown Rx tablet pain #25 tabs alprazolam 1 mg tablet 1 mg PO BID anxiety 30 days #60 03/01/24 03/26/24 03/25/24 Rx tabs esomeprazole magnesium 40 mg 40 mg PO DAILY 90 days #90 caps 03/01/24 03/26/24 03/25/24 Rx capsule,delayed release (Nexium) insulin glargine 100 unit/mL 10 unit SUBCUT DAILY 03/01/24 03/26/24 03/25/24 History subcutaneous solution (Lantus U-100 Insulin) pen needle, diabetic 32 gauge x #100 ea 03/01/24 03/26/24 Unknown Rx (Pen Needle) pioglitazone 45 mg tablet (Actos) 45 mg PO DAILY 90 days #90 tabs 03/01/24 03/26/24 03/25/24 Rx montelukast 10 mg tablet 10 mg PO DAILY 90 days #90 tabs 03/23/24 03/26/24 03/25/24 Rx albuterol sulfate 2.5 mg/3 mL 2.5 mg inhalation TID PRN 03/26/24 03/26/24 Unknown History (0.083 %) solution for nebulization Shortness Of Breath Or Wheezing albuterol sulfate 90 mcg/actuation 2 puff inhalation 6XD PRN 03/26/24 03/26/24 Unknown History aerosol inhaler (Ventolin HFA) Shortness Of Breath Or Wheezing glipizide 10 mg tablet, extended 20 mg PO QAM 03/26/24 03/26/24 03/25/24 History release 24 hr Allergies Allergy/AdvReac Type Severity Reaction Status Date / Time Biguanides Allergy Unknown Unknown Verified 03/26/24 05:09 amitriptyline Allergy Unknown Verified 03/26/24 05:09 dapagliflozin [From Farxiga] Allergy rash Verified 03/26/24 05:09 desvenlafaxine [From Pristiq] Allergy worsens Verified 03/26/24 05:09 depression diazepam Allergy Unknown Verified 03/26/24 05:09 diphenhydramine Allergy wheezing Verified 03/26/24 05:09 [From Benadryl] hydrocodone Allergy itching Verified 03/26/24 05:09 meloxicam Allergy gi symptoms Verified 03/26/24 05:09 metformin Allergy gi symptoms Verified 03/26/24 05:09 moxifloxacin [From Avelox] Allergy Unknown Verified 03/26/24 05:09 rofecoxib [From Vioxx] Allergy Unknown Verified 03/26/24 05:09 sertraline [From Zoloft] Allergy worsens Verified 03/26/24 05:09 depression Sulfa (Sulfonamide Allergy gi Verified 03/26/24 05:09 Antibiotics) symptoms, rash atorvastatin [From Lipitor] AdvReac myalgias Verified 03/26/24 05:09 lorazepam [From Ativan] AdvReac myoclonic Verified 03/26/24 05:09 jerking paroxetine [From Paxil] AdvReac worsens Verified 03/26/24 05:09 depression tirzepatide [From Mounjaro] AdvReac ADR-Diarrhe Verified 03/26/24 05:09 a PFSH Acute PFSH: Medical History (Updated 03/26/24 @ 10:08 by Loy Zhou MD) Obesity Coronary artery disease Enrolled in chronic care management Diabetes Hypertension Hyperlipidemia COPD (chronic obstructive pulmonary disease) Hypothyroid Depression Anxiety Chronic pain Surgical History (Updated 03/26/24 @ 09:55 by Loy Zhou MD) History of hysterectomy History of coronary artery bypass graft Social History (Updated 03/26/24 @ 09:56 by Loy Zhou MD) Smoking and tobacco/nicotine status: former use of tobacco/nicotine Second hand smoke exposure: Yes Alcohol intake: never Substance/Drug Use: never Lives independently: Yes Household members: none Current gender identity: Female Other PFSH information: Supplemental PFSH Information: Family history of asthma Vitals/I&O/Wt Last Vital Signs Temp 98.0 F 03/26/24 04:57 Pulse 93 03/26/24 06:35 Resp 19 H 03/26/24 06:35 BP 115/64 03/26/24 06:35 Pulse Ox 97 03/26/24 06:35 O2 Del Method Room Air 03/26/24 04:57 Weight last 48 hrs Weight 107.955 kg Physical Exam Narrative: General exam is a white female, on 3 L of oxygen, reporting no chest discomfort now. Denies shortness of breath. HEENT: Atraumatic normocephalic. Pupils equally round. Oropharynx is clear. Neck is supple no lymphadenopathy thyromegaly Cardiovascular regular in rhythm with a 2/6 systolic murmur Lungs clear Abdomen is soft obese nontender with positive bowel sounds. No obvious organomegaly exam is deferred Extremities no cyanosis clubbing. 1+ edema bilaterally. Some excoriations left forearm. Skin see findings above Neuro no obvious focal deficits Data 03/26/24 06:47 03/26/24 06:47 Other Labs: INR is normal LFTs are normal the exception of alk phos of 170 Calcium and albumin are normal Troponin 67 with repeat of 112 BNP 150 TSH 5.35 which I ordered Urinalysis pending Chest x-ray which I reviewed no infiltrate, sternotomy wires are noted EKG which I reviewed demonstrates sinus tachycardia, normal axis, septal Q waves, nonspecific ST-T wave changes. Strip performed by ambulance services with heart rate of 208, narrow complex and regular tachycardic rhythm consistent with SVT A&P Assessment and plan (1) SVT (supraventricular tachycardia): Patient had evidence of SVT in the field, that spontaneously converted TSH and magnesium were checked and normal Telemetry Initiate metoprolol 12.5 mg twice daily. She received 5 IV on arrival to the emergency department Consider event monitor on discharge (2) Non-ST elevated myocardial infarction: Concern of non-ST elevation myocardial infarction. This may have been initiated secondary to markedly elevated heart rate, in this patient with known coronary disease Nuclear stress test tomorrow to delineate risk Beta-justin. Statin not given secondary to allergy. Aspirin. 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 Diagnoses SVT (supraventricular tachycardia) I47.10 Non-ST elevated myocardial infarction I21.4 Coronary artery disease I25.10 Type 2 diabetes mellitus without complication, with long-term current use of insulin E11.9; Z79.4 Diabetes mellitus type: type 2 Diabetes mellitus terminal clerk insulin use: with terminal clerk use Diabetes mellitus complication status: without complication Chronic obstructive pulmonary disease, unspecified COPD type J44.9 COPD type: unspecified COPD Time Spent (min) 64
[2024-03-26] MEDS: metoprolol tartrate 25 mg Tablet 12.5 MG PO ×2 (10:06→20:39)
[2024-03-26] MEDS: aspirin 81 mg Chew Tablet 324 MG PO (10:09)
--- NOTE | 2024-03-26 11:10 | ECG_ITS ---
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 Measurements Intervals [place] Rate: 79 P: 50 CT: 190 QRS: 21 QRSD: 89 T: 87 QT: 353 QTc: 405 Interpretive Statements SINUS RHYTHM NONSPECIFIC T-WAVE ABNORMALITY Compared to ECG 03/26/2024 07:34:39 No significant changes Electronically Signed On 03-26-2024 16:09:23 CDT by Daniel Villalta M.D. [id number]
--- NOTE | 2024-03-26 12:08 | USCV_ITS ---
Sabrina Delvalle Age: 68 Gender: F : 1955 Exam Date: 03/26/2024 13:53 Ordering Phys: Loy Zhou MD Technologist: Exam Location: [facility]_ Indication: cp sob BP: 102 / 54 HR: 1200 Rhythm: Sinus Technical Quality: Adequate MEASUREMENTS (Male / Female) Normal Values 2D ECHO LV Diastolic Diameter PLAX 3.1 cm 4.2 - 5.9 / 3.9 - 5.3 cm IVS Diastolic Thickness 1.7 cm 0.6 - 1.0 / 0.6 - 0.9 cm IVS Systolic Thickness 1.7 cm LVPW Diastolic Thickness 1.2 cm 0.6 - 1.0 / 0.6 - 0.9 cm LVPW Systolic Thickness 2.1 cm LVOT Diameter 2.1 cm LV Ejection Fraction 2D Teich 59.1 % LV Ejection Fraction MOD 4C 62.4 % LV Ejection Fraction MOD 2C 72.8 % LV Ejection Fraction 2C AL 73.4 % LA Diameter 3.6 cm RA Systolic Volume 4C AL 33.3 ml RA Systolic Volume 4C MOD 32.3 ml LA Sys Volume AL 28.7 cm cubed LA Sys Volume Index AL 11.6 cm cubed/m squared Aorta at Sinotubular Diameter 3.0 cm M-MODE LA Ao Ratio MM 1.2 AV Cusp Separation MM 2.0 cm DOPPLER AV Peak Velocity 70.0 cm/s LVOT Peak Velocity 93.0 cm/s AV Area Cont Eq vti 5.1 cm squared AV Area Cont Eq pk 4.5 cm squared MV Area PHT 3.4 cm squared Mitral E to A Ratio 1.1 TR Peak Velocity 178.0 cm/s TR Peak Gradient 12.7 mmHg TV Peak E Velocity 117.0 cm/s Right Atrial Pressure 3.0 mmHg Pulmonary Artery Systolic Pressu 15.7 mmHg PV Peak Velocity 104.0 cm/s FINDINGS Left Ventricle Normal left ventricular size and systolic function, EF 72%.no regional wall motion abnormalities. Right Ventricle The right ventricle is normal in size and function. Right Atrium The right atrium is normal in size. Left Atrium The left atrium is normal in size. Mitral Valve No gross abnormalities noted Aortic Valve Thickened aortic valve. Tricuspid Valve Trace tricuspid valve regurgitation. Pulmonic Valve No gross abnormalities noted Pericardium Normal pericardium without effusion. Aorta Normal ascending aorta dimension. IVC Inferior vena cava not visualized. CONCLUSIONS Normal left ventricular size and systolic function, EF 72%.no regional wall motion abnormalities. Thickened aortic valve. Trace tricuspid valve regurgitation. Estimated pulmonary artery peak systolic pressure 16 mmHg There is no pericardial effusion. There are no intracardiac masses. No similar previous studies are available for comparison Dr Gio Lujan MD [facility] (Electronically Signed) Final Date: 26 March 2024 15:52 S
[2024-03-26] MEDS: enoxaparin 100 mg/mL Syringe SUBCUT ×2 (12:27→22:20)
[2024-03-26] MEDS: ipratropium-albuterol 3 mL Neb INHALATION ×3 (13:19→20:16)
[2024-03-26 13:46] LABS: Glucose Point of Care 191 mg/dL (70-110)
[2024-03-26 14:26] LABS: Troponin 5 6HR 167.5 ng/L (0-10); Troponin 5 6HR Delta 102.5 ng/L (0-12)
[2024-03-26 15:33] LABS: Glucose Point of Care 164 mg/dL (70-110)
[2024-03-26 17:33] LABS: Bilirubin Urine Neg (Negative); Blood Urine Neg (Negative); Glucose Urine UA Norm (Normal); Ketones Urine Negative (Negative); Leukocyte Esterase Urine Negative (Negative); Nitrate Urine Negative (Negative); Protein Urine Neg (Negative); Specific Gravity, Urine 1.015 (1.005-1.030); Urine Appearance Clear (CLEAR); Urine Color Yellow (Yellow); Urobilinogen Urine Norm (Negative); pH Urine 6 (5-7)
[2024-03-26 18:03] LABS: Add Urine Culture? No; Transitional Epi Cells Urine 0-4 /hpf
--- NOTE | 2024-03-26 19:46 | P.CONIM_ITS ---
Providers/Reason For Consult 2 Consulting Physician/Specialty*: Cardiology Reason for Consult*: Abnormal cardiac markers Chest pain Shortness of SVT Requesting Physician: Loy Zhou Attending Physician: Loy Zhou MD Primary Care Provider: Jana Hall NP History of Present Illness History of Present Illness Sabrina Delvalle is a 68 year old female presented with chest pain shortness of breath noted to be in supraventricular tachycardia given IV fluid which aborted SVT. During investigation she was noted to have high abnormal cardiac markers, echocardiogram was performed which showed normal ejection fraction no wall motion abnormality it is the reason we have been asked to assist in her care. Currently she is chest pain-free however she has history of coronary artery disease hypertension obesity and hyperlipidemia. It is hard to assess her functional status therefore we will agree with stress test. Twelve-lead EKG showed sinus rhythm normal axis otherwise no significant ST's ST changes noted. Review of Systems 2 General: Reports: 10 or more systems reviewed and unremarkable except in HPI and below Card: Reports: chest pain; Denies: palpitations Resp: Reports: dyspnea; Denies: productive cough or non-productive cough GI: Reports: nausea; Denies: abdominal pain, hematochezia or melena Medications/Allergies Home Medications Medication Instructions Recorded Confirmed Last Taken Type NEBULIZER AND SUPPLIES #1 ea 11/20/21 03/26/24 Unknown Rx EASY MAX Z TALKING METER STRIPS #50 ea 07/21/23 03/26/24 Unknown Rx budesonide 160 mcg-glycopyr 9 2 inh inhalation BID 30 days #10.7 10/13/23 03/26/24 03/25/24 Rx mcg-formot 4.8 mcg/actuation HFA grams inhaler (Breztri Aerosphere) nitroglycerin 0.4 mg sublingual 0.4 mg sublingual Q5M PRN chest 11/04/23 03/26/24 Unknown Rx tablet pain #25 tabs alprazolam 1 mg tablet 1 mg PO BID anxiety 30 days #60 03/01/24 03/26/24 03/25/24 Rx tabs esomeprazole magnesium 40 mg 40 mg PO DAILY 90 days #90 caps 03/01/24 03/26/24 03/25/24 Rx capsule,delayed release (Nexium) insulin glargine 100 unit/mL 10 unit SUBCUT DAILY 03/01/24 03/26/2403/25/24 History subcutaneous solution (Lantus U-100 Insulin) pen needle, diabetic 32 gauge x #100 ea 03/01/24 03/26/24 Unknown Rx (Pen Needle) pioglitazone 45 mg tablet (Actos) 45 mg PO DAILY 90 days #90 tabs 03/01/24 03/26/24 03/25/24 Rx montelukast 10 mg tablet 10 mg PO DAILY 90 days #90 tabs 03/23/24 03/26/24 03/25/24 Rx albuterol sulfate 2.5 mg/3 mL 2.5 mg inhalation TID PRN 03/26/24 03/26/24 Unknown History (0.083 %) solution for nebulization Shortness Of Breath Or Wheezing albuterol sulfate 90 mcg/actuation 2 puff inhalation 6XD PRN 03/26/24 03/26/24 Unknown History aerosol inhaler (Ventolin HFA) Shortness Of Breath Or Wheezing glipizide 10 mg tablet, extended 20 mg PO QAM 03/26/24 03/26/24 03/25/24 History release 24 hr Allergies Allergy/AdvReac Type Severity Reaction Status Date / Time Biguanides Allergy Unknown Unknown Verified 03/26/24 05:09 amitriptyline Allergy Unknown Verified 03/26/24 05:09 dapagliflozin [From Farxiga] Allergy rash Verified 03/26/24 05:09 desvenlafaxine [From Pristiq] Allergy worsens Verified 03/26/24 05:09 depression diazepam Allergy Unknown Verified 03/26/24 05:09 diphenhydramine Allergy wheezing Verified 03/26/24 05:09 [From Benadryl] hydrocodone Allergy itching Verified 03/26/24 05:09 meloxicam Allergy gi symptoms Verified 03/26/24 05:09 metformin Allergy gi symptoms Verified 03/26/24 05:09 moxifloxacin [From Avelox] Allergy Unknown Verified 03/26/24 05:09 rofecoxib [From Vioxx] Allergy Unknown Verified 03/26/24 05:09 sertraline [From Zoloft] Allergy worsens Verified 03/26/24 05:09 depression Sulfa (Sulfonamide Allergy gi Verified 03/26/24 05:09 Antibiotics) symptoms, rash atorvastatin [From Lipitor] AdvReac myalgias Verified 03/26/24 05:09 lorazepam [From Ativan] AdvReac myoclonic Verified 03/26/24 05:09 jerking paroxetine [From Paxil] AdvReac worsens Verified 03/26/24 05:09 depression tirzepatide [From Mounjaro] AdvReac ADR-Diarrhe Verified 03/26/24 05:09 a Current Medications Generic Name Dose Route Start Last Admin Trade Name Freq PRN Reason Stop Dose Admin Albuterol/Ipratropium 3 ml 03/26/24 12:08 03/26/24 15:36 Ipratropium-Albuterol 3 Ml Neb INHALATION 3 ml QID.RESPIRATORY TONI Administration Alprazolam 0.5 mg 03/26/24 18:00 03/26/24 18:14 Alprazolam 0.5 Mg Tablet PO Not Given BID TONI Enoxaparin Sodium 100 mg 03/26/24 10:15 03/26/24 12:27 Enoxaparin 100 Mg/Ml Syringe SUBCUT 100 mg Q12H TONI Administration Insulin Human Lispro 0 unit 03/26/24 12:08 03/26/24 18:02 Insulin Lispro 100 Unit/1 Ml SUBCUT Not Given WM&BEDTIME TONI Protocol Metoprolol Tartrate 12.5 mg 03/26/24 09:30 03/26/24 10:06 Metoprolol Tartrate 25 Mg Tablet PO 12.5 mg BID@0900,2100 TONI Administration PFSH Acute 2 PFSH: Medical History (Updated 03/26/24 @ 19:55 by Radha Cleaning MD) Obesity Coronary artery disease Enrolled in chronic care management Diabetes Hypertension Hyperlipidemia COPD (chronic obstructive pulmonary disease) Hypothyroid Depression Anxiety Chronic pain Surgical History (Updated 03/26/24 @ 09:55 by Loy Zhou MD) History of hysterectomy History of coronary artery bypass graft Social History (Updated 03/26/24 @ 09:56 by Loy Zhou MD) Smoking and tobacco/nicotine status: former use of tobacco/nicotine Second hand smoke exposure: Yes Alcohol intake: never Substance/Drug Use: never Lives independently: Yes Household members: none Current gender identity: Female Other PFSH information: Supplemental PFSH Information: Family history of asthma Dietary Habits: Current diet type/program: regular Caffeine: Yes Exercise: What type of physical activity do you participate in?: none P hysical activity functional status: independent ambulation Safety: Seatbelt use: sometimes Drive intoxicated or ride with intoxicated grab driver?: never Home Safety: Water heater temperature set < 120 degrees: Yes Working smoke detector in home: Yes Fire extinguisher in home: Yes Carbon monoxide detector in home: No Firearms in home: Yes Personal Safety: Do you feel safe at home: Yes Victim of physical abuse: No Victim of emotional abuse: No Victim of sexual abuse: No Would you like help information on resources?: No NHANES Social Connection/Isolation: In a typical week, how many times do you talk on the telephone with family, friends, or neighbors?: Three or More Times per Week How often do you get together with friends or relatives?: Twice per Week Do you belong to any clubs or organizations such as synagogue groups unions, [employer] or athletic groups, or school groups?: Yes Social isolation score (0-1 are the most socially isolated patients): 2 Social isolation score reviewed/action taken: Yes Vitals/I&O/Wt Last Vital Signs Temp 98.0 F 03/26/24 04:57 Pulse 52 L 03/26/24 17:09 Resp 20 H 03/26/24 17:09 BP 143/58 03/26/24 17:09 Pulse Ox 95 03/26/24 17:09 O2 Del Method Nasal Cannula 03/26/24 15:36 O2 Flow Rate 2 03/26/24 15:36 Weight last 48 hrs Weight 238 lb Weight 238 lb Physical Exam 2 Const: OTHER: GENERAL: Patient is alert, awake and oriented x3. Laying in the bed denies any she is eating her meal HEART: Regular S1 and S2. No murmur, rub or gallop. LUNGS: Clear to auscultate bilaterally. CENTRAL NERVOUS SYSTEM: Grossly nonfocal. EXTREMITIES: Lower extremities without edema Data 03/26/24 06:47 03/26/24 06:47 A&P Assessment and plan (1) SVT (supraventricular tachycardia): Remains in sinus rhythm continue beta-justin (2) Coronary artery disease: Elevated cardiac markers could be demand ischemia echocardiogram showed normal ejection fraction no wall motion abnormality however cannot rule out obstructive coronary artery disease therefore will ask for stress test. (3) Elevated troponin: Could be demand ischemia however cannot rule out obstructive coronary disease therefore we will proceed with stress test tomorrow (4) Hypertension: Well-controlled continue meds Qualifiers: Hypertension type: primary hypertension Qualified Code(s): I10 - Essential (primary) hypertension Consult Attestations 2 Medical Necessity Statement: Patient require continuation hospitalization for above defined care Coding Level of Care Code Acute Code for Chg Fwd Diagnoses SVT (supraventricular tachycardia) I47.10 Coronary artery disease I25.10 Elevated troponin R79.89 Primary hypertension I10 Hypertension type: primary hypertension
[2024-03-26] MEDS: budesonide 0.5 mg/2 mL Neb INHALATION (20:16)
[2024-03-26 20:36] LABS: Glucose Point of Care 253 mg/dL (70-110)
[2024-03-26] MEDS: insulin lispro 100 unit/1 mL SUBCUT (20:39)
[2024-03-27] VITALS (23 sets, daily range): BP systolic 83–128; BP diastolic 58–78; PULSE 73–88; RESP 13–22; TEMP 36.3–36.9; O2SAT 93–98
--- NOTE | 2024-03-27 01:02 | PC.NURSE ---
spoke with Provider about patient concern that she is not able to breath patient does not appear to be in any distress V/S Stable on 2 Liters o2 patient reports she takes an albuterol inhaler at home received telephone instruction to order PRN albuterol Neb treatments 2.5 Q6H for SOB
[2024-03-27] MEDS: albuterol 2.5 mg/3 mL Neb INHALATION (01:16)
--- NOTE | 2024-03-27 02:13 | PC.NURSE ---
patient given a diet coke at little after mid night patient not a wear of restrictions explained the delays that would happen due the intake of caffeine
--- NOTE | 2024-03-27 03:04 | ECG_ITS ---
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 Measurements Intervals [place] Rate: 82 P: 50 IA: 171 QRS: 20 QRSD: 94 T: 65 QT: 390 QTc: 458 Interpretive Statements SINUS RHYTHM NONSPECIFIC T-WAVE ABNORMALITY Compared to ECG 03/26/2024 11:08:44 No significant changes Electronically Signed On 03-27-2024 7:56:44 CDT by Daniel Villalta M.D. [email or web address] CorporationIs[facility] Pharmaceuticalsmer[facility].[employer]/store/[id number]
[2024-03-27] MEDS: acetaminophen 325 mg Tablet 650 MG PO ×2 (03:17→09:21)
--- NOTE | 2024-03-27 03:27 | PC.NURSE ---
patient reporting chest pain and headache rated 9/10 ekg performed per protocol no changes noted compared to last ekg and Tylenol given for pain patient has non productive hacking cough denies worsening pain during coughing episodes notified provider and discussed giving morphine for pain however patient has listed allergy to hydrocodone
[2024-03-27 03:38] LABS: Basophils # 0.1 10^3/uL (0.0-0.1); Basophils % 0.9 %; Eosinophils # 0.3 10^3/uL (0.0-0.8); Eosinophils % 4.2 %; Lymphocytes # 2.7 10^3/uL (0.8-4.8); Lymphocytes % 39.8 %; Mean Corpuscular HGB Conc 28.8 g/dL (30-55); Mean Corpuscular Hemoglobin 28.2 pg (27-33); Mean Corpuscular Volume 98.1 fl (85-98); Mean Platelet Volume 10.2 fL (7.4-10.4); Monocytes # 0.4 10^3/uL (0.2-0.9); Monocytes % 5.5 %; Neutrophils # 3.39 10^3/uL (1.8-7.7); Neutrophils % 49.2 %; Nucleated Red Blood Cells % 0 %; Platelet Count 321 10^3/cmm (157-399); Red Blood Count 4.18 10^6/uL (3.85-5.65); Red Cell Distribution Width 14.9 % (12.1-15.1); White Blood Count 6.89 10^3/uL (3.29-11.43)
[2024-03-27 05:11] LABS: Alanine Aminotransferase 12 U/L (0-33); Albumin Level 3.4 g/dL (3.5-5.2); Alkaline Phosphatase 158 U/L (35-105); Aspartate Amino Transferase 24 U/L (0-32); Blood Urea Nitrogen 15 mg/dL (8-23); Calcium 8.7 mg/dL (8.5-10.5); Carbon Dioxide 28 mmol/L (22-29); Chloride 101 mmol/L (98-107); Creatinine Clr Calc Pharmacy 76.7388; Globulin 3.5 g/dL (1.3-4.6); Glucose 120 mg/dL (65-115); Magnesium 2.1 mg/dL (1.7-2.3); Osmolality Calculated 290 mOsm/kg (285-295); Sodium 139 mmol/L (136-145); Total Bilirubin 0.4 mg/dL (0.15-1.2); Total Protein 6.9 g/dL (6.6-8.7)
[2024-03-27 06:28] LABS: Glucose Point of Care 110 mg/dL (70-110)
[2024-03-27] MEDS: pantoprazole DR 40 mg Tablet PO (07:06)
[2024-03-27] MEDS: aspirin 81 mg EC Tablet PO (07:07)
[2024-03-27] MEDS: montelukast sodium 10 mg Tablet PO (07:07)
[2024-03-27] MEDS: ALPRAZolam 0.5 mg Tablet PO (07:08)
[2024-03-27] MEDS: budesonide 0.5 mg/2 mL Neb INHALATION ×2 (07:34→20:27)
[2024-03-27] MEDS: ipratropium-albuterol 3 mL Neb INHALATION ×3 (07:37→20:27)
--- NOTE | 2024-03-27 08:20 | PC.NURSE ---
Patient refusing to take her metoprolol this morning due to low BP and she wants to eat. Informed Dr Zhou. Dr Zhou came to see patient. Discussed possible LHC today versus stress test. Informed Dr Cleaning of caffeine intake overnight. Dr Cleaning to see patient as well. Will continue to monitor.
[2024-03-27 09:14] LABS: Glucose Point of Care 127 mg/dL (70-110)
--- NOTE | 2024-03-27 09:21 | PC.CHAP ---
Pastoral Care Encounter/Spiritual Assessment Type of Contact [] Declined commercial representative visit [] Patient/Family/Request visit [] Outpatient visit [] Follow-up visit [] Physician referral [] Code/Alert [] Routine visit [] Staff referral [] Actively dying [x] Patient sleeping [] Family support [] [] Out of room [] Palliative care [] [] Receiving care in room [] Pre-surgical visit [] Trauma [] Long length of stay [] ICU visit [] Other: Relational/Emotional Strength [] Patient feels connected with others/family/visitors/staff [] Distress [] Loneliness/isolation [] Abandonment Spirituality of Patient [] Person of Christen [] Attends Jew of their Christen [] Believes in Prayer [] Reads Bible or Temple materials [] There are Spiritual issues to be addressed Assistant Drafter Interventions [] Prayer [] Active listening [] Non-anxious presence [] Spiritual/emotional support [] Crisis/trauma care [] Spiritual counseling [] Bereavement support [] Provided bereavement packet [] Provided Bible/devotional materials [] Provided toy/stuffed animal, coloring book to patient or family member [] Provided Communion [] Anointing/[place] [] Salvation [] Completed spiritual assessment [] Other: Impact on Illness or Injury [] Angry [] Fearful [] Anxious [] Often cries [] Exhaustion [] Unable to work [] Unable to attend latter day [] Unable to walk/stand [] Unable to read [] Unable to drive [] Unable to eat/drink [] Unable to sleep [] Unable to be with family [] Patient intubated [] Other: Summary Time spent with patient
--- NOTE | 2024-03-27 09:44 | XACV_ITS ---
Exam Room: 2 Ht: 157 cm Wt: 108 kg BSA: 2.24 m2 Gender: Female : 1955 Any Known Allergies: Other Exam Priority: Routine Procedure(s): Procedure Description: Diagnostic procedure Procedure Description: Left Heart Catheterization Procedure Description: Left ventriculography Procedure Description: Miscellaneous Procedure Description: Perclose Procedure Description: Coronary Angiography Hermila TURNER; Diagnostic Cath Status: Urgent Diagnostic Findings * a. * No disease noted in the Left Main, Left Anterior Descending, left circumflex is a dominant vessel no significant coronary disease, RCA is nondominant vessel without significant disease but diffuse luminal irregularities. * Please note that patient has torturous subclavian vessel difficult engagement of the catheter to the ANDREWS, from after mid segment ANDREWS is not well-visualized most likely due to poor injection and suboptimal images due to anatomical constraint however ANDREWS was well-visualized in most of left-sided coronary angiogram with retrograde dye injection it appeared to be attached to the mid LAD, strangely patient does not have left main or LAD disease, patient says she has history of coronary artery disease, will try to obtain records. * One graft visualized. * RCA is small caliber but no significant disease it is not a dominant vessel. Conclusions 1. No disease noted in the Left Main, Left Anterior Descending, left circumflex is a dominant vessel no significant coronary disease, RCA is nondominant vessel without significant disease but diffuse luminal irregularities. 2. One coronary graft visualized: all grafts patent. 3. All landry are normal. 4. Patient has prior CABG. 5. Normal left ventricular systolic function. Ejection fraction of 65%. Recommendations * Continue current medical management and risk factor modification. Diagnostic RX Recommendation: medical therapy and/or counseling Ventriculography Ejection Fraction: 65.0 % Pressures Phase:Rest AO : 118 / 55 ( 80 ) @ 11:42:00 AM 115 / 57 ( 82 ) @ 11:45:00 AM 89 / 62 ( 76 ) @ 11:46:00 AM 92 / 51 ( 67 ) @ 12:10:00 PM 89 / 48 ( 64 ) @ 12:12:00 PM 99 / 48 ( 69 ) @ 12:21:00 PM 105 / 43 ( 73 ) @ 12:21:00 PM LV : 102 / -12 / 6 @ 12:20:00 PM 102 / -11 / 8 @ 12:21:00 PM 102 / -10 / 7 @ 12:21:00 PM Valves Phase:DefaultPhase AV : 3.0 @ 11:50:13 AM AV Mean Gradient: 7.0 @ 11:50:13 AM Clinical Evaluation EBL: 5mL-10mL Procedural Details Procedure Consent Obtained. Current Diagnosis : Chest Pain. Pre-Procedure Time Out. Identified patient by full name and date of as verbalized by the patient/guarantor. Does the consent match the physician's order: Yes. Accurate & Complete Informed Consent: Yes. Inpatient/Outpatient History & Physical on Chart: Yes. If H&P is completed, is and addenduem needed: No; If yes, is the addendum complete: N/A. Visualize and Verify Site with Patient/Guarantor: N/A. Relevant Radiology Images available: Yes. Pre-op teaching completed and patient verbalized understanding. The risks, benefits, and alternatives of sedation and/or procedure were discussed by physician. The patient agrees to continue. Procedure started. [facility] Clinical Fraility Score: 5: Mildly Frail. 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 Chest Pain Symptom Assessment: Atypical Angina. Correct patient, site and procedure confirmed by cath team. Current diagnosis: Chest Pain. PERRLA. Strong, equal hand beer cooler bilaterally. Lungs clear x 5 lobes. IV Site on Arrival: 20 gauge in the left hand. IV Fluids: 0.9% NaCl at KVO. 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 Oxygen started at 2liters/min via nasal canula. bilateral groins was prepped with chloroprep then draped in the usual sterile fashion. Baseline sample Acquired. HR: 80 BPM. Physician arrived. Physician scrubbed in. Immediate Pre-Procedure Time Out. Correct Patient: Yes; Correct Procedure: Yes; Correct Site: Yes; Correct Patient Position: Yes; Correct Supplies: Yes; Dried Flammable Prep: Yes; Blood Products Available: N/A;. Lidocaine 1% infiltrated to the right groin. Venous access obtained with a micropuncture set. Arterial access obtained with micropuncture set. A 5 central african JL4 catheter in over wire. Multiple views taken of left coronary artery. Catheter removed over the standard wire. A 5 central african JR4 catheter in over wire. Multiple views taken of right coronary artery. Catheter removed over the exchange wire. A 5 central african IM catheter in over wire. Repositioning over the wire. Catheter removed over the standard wire. A 5 central african Angled Pig catheter in over wire. EDP Sample taken: LV 102/-13,6; HR: 78 BPM; SpO2: 96%. LV gram performed in FONTAINE @ 10 mL/second for a total of 30 mL. EDP Sample taken: LV 102/-11,8; HR: 78 BPM; SpO2: 97%. Pullback taken: LV 102/-11,7; AO 99/48(69); Mean: 7mmHg, Peak to Peak: 3mmHg, SEP: 23sec/min; HR: 79 BPM; SpO2: 96%. Catheter removed over the standard wire. A Right femoral angiogram was performed to determine safe placement of closure device. Lidocaine 1% infiltrated to the right groin. 6FR dilator inserted OTW. A Perclose (Iceotope) was successful obtaining hemostatsis at the Right Femoral artery insertion site. Post Procedure: Pulses reassessed and unchanged. PERRLA. Strong, equal hand beer cooler bilaterally. No VTE prophylaxis required. Medication's Wasted: Lidocaine 1% = 10 mL. Medication's Wasted: Heparin = 1000 units. Total IV fluids: 174 mL. Complications: None. Estimated blood loss: 5mL-10mL. Responsiveness - Normal response to verbal stimuli; alert and oriented, PERRLA. Airway - Unaffected, no intervention required; spontaneous ventilation. Circulation: W/N/L, pulses unchanged. Nausea/Vomiting: No. Procedure completed. Patient transferred by bed to 1st floor. Vital chart was stopped. Access Site Site: Right Femoral vein Sheath Size: 6 Fr Hemostasis Success: Unsuccessful Site: Right Femoral artery Sheath Size: 6 Fr Hemostasis Method: Perclose (Iceotope) Hemostasis Success: Successful Procedure Medications Start: 10:17 AM Stop: 10:17 AM Medication: Versed Amount: 1 mg Route: I.V. Start: 10:17 AM Stop: 10:17 AM Medication: Fentanyl Amount: 50 mcg Route: I.V. Start: 10:23 AM Stop: 10:23 AM Medication: Versed Amount: 0.5 mg Route: I.V. Start: 10:23 AM Stop: 10:23 AM Medication: Fentanyl Amount: 25 mcg Route: I.V. Start: 10:58 AM Stop: 10:58 AM Medication: Versed Amount: 0.5 mg Route: I.V. Start: 10:58 AM Stop: 10:58 AM Medication: Fentanyl Amount: 25 mcg Route: I.V. Start: 11:31 AM Stop: 11:31 AM Medication: Fentanyl Amount: 50 mcg Route: I.V. Start: 11:41 AM Stop: 11:41 AM Medication: Fentanyl Amount: 50 mcg Route: I.V. I, the attending physician, have reviewed and verified all procedure medications. Yes, all medications given per verbal order History/Risk Factors Hypertension: Yes Dyslipidemia: Yes Peripheral Arterial Disease (PAD): No Myocardial Infarction ([place]): No Obesity: Yes Renal Disease: No Tobacco Use: Former Prior Interventions PCI: No CABG: Yes Valve Surgery: No Report Signatures Finalized by Radha Cleaning MD on 03/30/2024 11:06 PM
--- NOTE | 2024-03-27 10:23 | W.PM.OPSUD ---
Surgery/Procedure H&P Update DATE OF PROCEDURE: March 27, 2024 DATE H&P PERFORMED: 03/26/24 H&P UPDATE INFORMATION: I have reviewed H&P completed within last 30 days, I have examined patient prior to procedure, Changes to prior documentation as noted here and H&P to be scanned into chart PREOP DIAGNOSIS: nstemi PATIENT REASSESSED PRIOR TO SEDATION, WITH NO CHANGE NOTED: Yes PHYSICAL EXAM: alert, oriented x 3, clear to auscultation bilaterally, regular rate & rhythm and operative site marked AIRWAY EVAL/ANESTHESIA PLAN: ASA III, Risks, benefits & alternatives of sedation and/or procedure discussed and Patient agrees to continue as planned ADDITIONAL INFORMATION: Mallampati 2
[2024-03-27 12:59] LABS: Glucose Point of Care 133 mg/dL (70-110)
--- NOTE | 2024-03-27 13:09 | P.PN_ITS ---
Subjective 2 Subjective: Sabrina reports she is doing okay right now. Last night she had some chest pressure, lower substernal area. She accidentally had some caffeine, and therefore cannot undergo a nuclear stress test. Cardiology has seen, and recommended secondary to recurrent pain she have an angiogram. This was performed and did not show flow-limiting disease today. Medications: Reviewed: Yes Vitals/I&O/Wt Last Vital Signs Temp 97.6 F 03/27/24 07:11 Pulse 77 03/27/24 13:01 Resp 13 03/27/24 13:01 BP 99/60 03/27/24 13:01 Pulse Ox 96 03/27/24 13:01 O2 Del Method Nasal Cannula 03/27/24 07:36 O2 Flow Rate 2 03/27/24 07:36 03/26/24 03/27/24 03/27/24 22:59 06:59 14:59 Intake Total 300 / 300 Balance 300 / 300 Weight last 48 hrs Weight 107.955 kg Weight 107.955 kg Weight 107.955 kg Physical Exam 2 Narrative: General exam is a white female, no distress, on 2 L Neck is supple no lymphadenopathy thyromegaly Cardiovascular regular in rhythm with a 2/6 systolic murmur Lungs clear Abdomen is soft obese nontender with positive bowel sounds. No obvious organomegaly Extremities no cyanosis clubbing. 1+ edema bilaterally. Some excoriations left forearm. Data 03/27/24 03:20 03/27/24 04:43 Other Labs: Echo demonstrates normal EF A&P Assessment and plan (1) SVT (supraventricular tachycardia): Patient had evidence of SVT in the field, that spontaneously converted TSH and magnesium were checked and normal Telemetry Continue metoprolol 12.5 mg twice daily. Discussed the importance of this with the patient Consider event monitor on discharge (2) Non-ST elevated myocardial infarction: Concern of non-ST elevation myocardial infarction. This may have been initiated secondary to markedly elevated heart rate, in this patient with known coronary disease Angiogram performed today, no flow-limiting disease Continue beta-justin, aspirin Echocardiogram with preserved EF Does not need full anticoagulation. 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 Likely release/discharge tomorrow. CBC and BMP in the morning. Diagnoses SVT (supraventricular tachycardia) I47.10 Non-ST elevated myocardial infarction I21.4 Coronary artery disease I25.10 Type 2 diabetes mellitus without complication, with long-term current use of insulin E11.9; Z79.4 Diabetes mellitus type: type 2 Diabetes mellitus penitentiary insulin use: with penitentiary use Diabetes mellitus complication status: without complication Chronic obstructive pulmonary disease, unspecified COPD type J44.9 COPD type: unspecified COPD Time Spent (min) 23
[2024-03-27] MEDS: sodium chloride 0.9% 1,000 ML 100 ML IV (16:15)
[2024-03-27 17:09] LABS: Glucose Point of Care 154 mg/dL (70-110)
--- NOTE | 2024-03-27 19:35 | PM.PN ---
Subjective Subjective: Patient had episode of chest pain this morning she was taken to the [facility] noted to have no significant obstructive coronary artery disease left main LAD circumflex and RCA has luminal irregularities without significant stenosis. ANDREWS was not attached. Patient has sternotomy sutures from previous surgery does not appear to be cardiac possible involving thoracic viscera may need to obtain previous records. No more episode of SVT Medications: Reviewed: Yes Vitals/I&O/Wt Last Vital Signs Temp 97.3 F L 03/27/24 16:00 Pulse 83 03/27/24 16:00 Resp 13 03/27/24 16:00 BP 116/64 03/27/24 16:00 Pulse Ox 95 03/27/24 16:00 O2 Del Method Nasal Cannula 03/27/24 16:00 O2 Flow Rate 3 03/27/24 15:27 03/27/24 03/27/24 03/27/24 06:59 14:59 22:59 Output Total 500 / 500 Balance -500 / -500 Weight last 48 hrs Weight 238 lb Weight 238 lb Weight 238 lb Physical Exam Const: COMMON NORMALS: alert OTHER: GENERAL: Patient is alert, awake and oriented x3. HEART: Regular S1 and S2. No murmur, rub or gallop. LUNGS: Clear to auscultate bilaterally. CENTRAL NERVOUS SYSTEM: Grossly nonfocal. EXTREMITIES: Lower extremities without edema Resp: COMMON NORMALS: clear to auscultation bilaterally AUSCULTATION: clear to auscultation bilaterally Neuro: SENSORIUM/ORIENTATION: Yes alert Data 03/27/24 03:20 03/27/24 04:43 A&P Assessment and plan (1) SVT (supraventricular tachycardia): Agree with beta-justin (2) Coronary artery disease: Patient does not have obstructive coronary artery disease as proven by left heart catheterization most likely SVT induced cardiac marker leak due to demand ischemia agree with beta-justin (3) Elevated troponin: Type II as above (4) Hypertension: Well-controlled continue meds Qualifiers: Hypertension type: primary hypertension Qualified Code(s): I10 - Essential (primary) hypertension Attestations Medical Necessity Statement*: Patient require continued hospitalization for postop left heart catheterization care Coding Level of Care Code Acute Code for [facility] Diagnoses SVT (supraventricular tachycardia) I47.10 Coronary artery disease I25.10 Elevated troponin R79.89 Primary hypertension I10 Hypertension type: primary hypertension
[2024-03-27] MEDS: ALPRAZolam 0.5 mg Tablet 1 MG PO (20:12)
[2024-03-27 20:41] LABS: Glucose Point of Care 320 mg/dL (70-110)
[2024-03-27] MEDS: insulin lispro 100 unit/1 mL SUBCUT (21:19)
[2024-03-28] VITALS (9 sets, daily range): BP systolic 101–147; BP diastolic 62–87; PULSE 79–92; RESP 16–20; TEMP 36.7–36.9; O2SAT 94–98
[2024-03-28] MEDS: hyDROXYzine 25 mg Capsule PO (01:21)
[2024-03-28] MEDS: albuterol 2.5 mg/3 mL Neb INHALATION (02:48)
[2024-03-28 04:00] LABS: Basophils # 0.1 10^3/uL (0.0-0.1); Basophils % 0.6 %; Eosinophils # 0.4 10^3/uL (0.0-0.8); Eosinophils % 4.5 %; Hematocrit 37.9 % (36-47); Lymphocytes # 2.5 10^3/uL (0.8-4.8); Lymphocytes % 32.3 %; Mean Corpuscular HGB Conc 29.8 g/dL (30-55); Mean Corpuscular Hemoglobin 27.9 pg (27-33); Mean Corpuscular Volume 93.6 fl (85-98); Mean Platelet Volume 10.6 fL (7.4-10.4); Monocytes # 0.5 10^3/uL (0.2-0.9); Monocytes % 6.5 %; Neutrophils # 4.36 10^3/uL (1.8-7.7); Neutrophils % 55.7 %; Nucleated Red Blood Cells % 0 %; Platelet Count 297 10^3/cmm (157-399); Red Blood Count 4.05 10^6/uL (3.85-5.65); Red Cell Distribution Width 14.9 % (12.1-15.1); White Blood Count 7.83 10^3/uL (3.29-11.43)
[2024-03-28 04:22] LABS: Anion Gap 14.1 (5-19); Blood Urea Nitrogen 12 mg/dL (8-23); Calcium 8.6 mg/dL (8.5-10.5); Carbon Dioxide 29 mmol/L (22-29); Chloride 101 mmol/L (98-107); Creatinine Clr Calc Pharmacy 76.7388; Glucose 241 mg/dL (65-115); Osmolality Calculated 298 mOsm/kg (285-295); Potassium 4.1 mmol/L (3.5-5.1); Sodium 140 mmol/L (136-145)
[2024-03-28 06:39] LABS: Glucose Point of Care 258 mg/dL (70-110)
[2024-03-28] MEDS: budesonide 0.5 mg/2 mL Neb INHALATION (07:44)
[2024-03-28] MEDS: ipratropium-albuterol 3 mL Neb INHALATION (07:44)
[2024-03-28] MEDS: insulin lispro 100 unit/1 mL SUBCUT (08:02)
[2024-03-28] MEDS: aspirin 81 mg EC Tablet PO (08:03)
[2024-03-28] MEDS: montelukast sodium 10 mg Tablet PO (08:03)
[2024-03-28] MEDS: ALPRAZolam 0.5 mg Tablet 1 MG PO (08:03)
[2024-03-28] MEDS: metoprolol succinate ER (24 HR) 25 mg Tablet 12.5 MG PO (08:05)
[2024-03-28] MEDS: pantoprazole DR 40 mg Tablet PO (08:05)
--- NOTE | 2024-03-28 08:12 | P.DS_ITS ---
Discharge Providers Date of Admission: 03/27/24 09:46 Date of Discharge: March 28, 2024 Attending Provider at Admission: Loy Zhou MD Attending Provider at Discharge: Loy Zhou MD Primary Care Provider: Jana Hall NP Diagnoses at Discharge Discharge Diagnosis (1) SVT (supraventricular tachycardia): Status: Acute (2) Coronary artery disease: Status: Acute (3) Elevated troponin: Status: Acute (4) Hypertension: Status: Chronic Qualifiers: Hypertension type: primary hypertension Qualified Code(s): I10 - Essential (primary) hypertension Reason for Visit Reason for Visit: fast HR Hospital Course Hospital Course Sabrina is a 68-year-old white female presenting to the emergency department via EMS. She had significant chest discomfort, and strip in the field dem onstrated likely SVT with a rate of 209. This spontaneously converted after some IV fluids and promethazine for nausea. In the emergency department troponin was significantly elevated, and she was admitted to the hospital. TSH and magnesium were normal. Cardiology was consulted secondary to continued pain. Initial plans for his nuclear stress test but with continued discomfort angiogram was ultimately performed on the . This did not show any flow- limiting stenosis. She had no further arrhythmias in the hospital. I discussed with her multiple times beta-justin. She initially refused but then agreed to take a low-dose. This is to try to prevent recurrence of SVT. On day of discharge she was stable with no arrhythmias, no chest discomfort. Angiogram site right groin demonstrated no significant hematoma. It was thought she could follow-up with her primary care provider 3 to 5 days, cardiology 1 week. She should return for any concerns. She was given an opportunity ask questions and agreed with the plan. Echo was also performed during her hospital stay demonstrating normal EF. Pulmonary artery pressure was 16. No regional wall motion abnormalities. Aspirin was also added to her regimen for elevated troponin. Physical Exam Narrative: General Exam no distress Neck is supple Cardiovascular regular rate and rhythm Lungs clear Abdomen is soft Extremities no cyanosis clubbing edema Discharge Data Studies Completed and Pending Completed Studies During Hospitalization Category Date Time Status XR chest 1V portable [id number] Stat Exams 03/26/24 05:10 Completed CV. echo complete* [id number] Routine Ultrasound 03/26/24 12:08 Completed Pending at discharge Category Date Time Status MICROCHIP SPECIALIST request for service Routine Exams 03/27/24 09:44 Taken Cardiac Stress Test MIBI [Sestamibi Stress Test Request Exams 03/26/24 12:08 Ordered ] Routine Radiology Impressions Chest X-Ray 03/26/24 05:10 IMPRESSION: No acute findings. Laboratory Results WBC 7.83 10^3/uL (3.29-11.43) 03/28/24 03:43 RBC 4.05 10^6/uL (3.85-5.65) 03/28/24 03:43 Hgb 11.30 g/dL (11.27-16.99) 03/28/24 03:43 Hct 37.9 % (36-47) 03/28/24 03:43 MCV 93.6 fl (85-98) 03/28/24 03:43 MCH 27.9 pg (27-33) 03/28/24 03:43 MCHC 29.8 g/dL (30-55) L 03/28/24 03:43 RDW 14.9 % (12.1-15.1) 03/28/24 03:43 Plt Count 297 10^3/cmm (157-399) 03/28/24 03:43 MPV 10.6 fL (7.4-10.4) H 03/28/24 03:43 Neut % (Auto) 55.7 % 03/28/24 03:43 Lymph % (Auto) 32.3 % 03/28/24 03:43 [place] % (Auto) 6.5 % 03/28/24 03:43 Eos % (Auto) 4.5 % 03/28/24 03:43 Baso % (Auto) 0.6 % 03/28/24 03:43 Neut # (Auto) 4.36 10^3/uL (1.8-7.7) 03/28/24 03:43 Lymph # (Auto) 2.5 10^3/uL (0.8-4.8) 03/28/24 03:43 [place] # (Auto) 0.5 10^3/uL (0.2-0.9) 03/28/24 03:43 Eos # (Auto) 0.4 10^3/uL (0.0-0.8) 03/28/24 03:43 Baso # (Auto) 0.1 10^3/uL (0.0-0.1) 03/28/24 03:43 Nucleated RBC % (auto) 0 % 03/28/24 03:43 Nucleated RBCs # 0.0 /100WBC 03/28/24 03:43 PT 13.10 SECONDS (12.1-14.9) 03/26/24 08:00 INR 0.96 (0.8-1.2) 03/26/24 08:00 APTT 32.3 SECONDS (23.9-36.7) 03/26/24 08:00 Sodium 140 mmol/L (136-145) 03/28/24 03:43 Potassium 4.1 mmol/L (3.5-5.1) 03/28/24 03:43 Chloride 101 mmol/L (98-107) 03/28/24 03:43 Carbon Dioxide 29 mmol/L (22-29) 03/28/24 03:43 Anion Gap 14.1 (5-19) 03/28/24 03:43 BUN 12 mg/dL (8-23) 03/28/24 03:43 Creatinine 0.7 mg/dL (0.5-0.9) 03/28/24 03:43 GFR Calculation 83.0 mL/min (90-130) L 03/28/24 03:43 Glucose 241 mg/dL (65-115) H 03/28/24 03:43 POC Glucose 258 mg/dL (70-110) H 03/28/24 06:30 Calculated Osmolality 298 mOsm/kg (285-295) H 03/28/24 03:43 Calcium 8.6 mg/dL (8.5-10.5) 03/28/24 03:43 Magnesium 2.1 mg/dL (1.7-2.3) 03/27/24 04:43 Total Bilirubin 0.4 mg/dL (0.15-1.2) 03/27/24 04:43 AST 24 U/L (0-32) 03/27/24 04:43 ALT 12 U/L (0-33) 03/27/24 04:43 Alkaline Phosphatase 158 U/L (35-105) H 03/27/24 04:43 Creatine Kinase 178 U/L (26-192) 03/26/24 06:47 Troponin T Baseline 65 ng/L (0-10) H 03/26/24 06:47 Troponin T 120 Minute 112.9 ng/L (0-10) H 03/26/24 08:00 Delta Troponin T 47.9 ABS# (0-10) H* 03/26/24 08:00 Troponin T Hi Sens 6Hr 167.5 ng/L (0-10) H 03/26/24 13:32 Troponin T Hi Sens 6Hr Delta 102.5 ng/L (0-12) H* 03/26/24 13:32 NT-Pro-B Natriuret Pep 150 pg/mL (0-125) H 03/26/24 06:47 Total Protein 6.9 g/dL (6.6-8.7) 03/27/24 04:43 Albumin 3.4 g/dL (3.5-5.2) L 03/27/24 04:43 Globulin 3.5 g/dL (1.3-4.6) 03/27/24 04:43 TSH 5.35 uIU/mL (0.27-4.20) H 03/26/24 06:47 Urine Color Yellow (Yellow) 03/26/24 17:10 Urine Appearance Clear (CLEAR) 03/26/24 17:10 Urine pH 6 (5-7) 03/26/24 17:10 Ur Specific [place] 1.015 (1.005-1.030) 03/26/24 17:10 Urine Protein Neg (Negative) 03/26/24 17:10 Urine Glucose (UA) Norm (Normal) 03/26/24 17:10 Urine Ketones Negative (Negative) 03/26/24 17:10 Urine Blood Neg (Negative) 03/26/24 17:10 Urine Nitrate Negative (Negative) 03/26/24 17:10 Urine Bilirubin Neg (Negative) 03/26/24 17:10 Urine Urobilinogen Norm mg/dL (Negative) 03/26/24 17:10 Ur Leukocyte Esterase Negative (Negative) 03/26/24 17:10 Urine RBC None /hpf (0-2) 03/26/24 17:10 Urine WBC 10-15 /hpf (0-5) H 03/26/24 17:10 Ur Squamous Epith Cells 5-10 /hpf (0-5) H 03/26/24 17:10 Ur Transition Epith Cell 0-4 /hpf 03/26/24 17:10 Amorphous Sediment Not Reportable 03/26/24 17:10 Urine Bacteria None /hpf (NONE) 03/26/24 17:10 Urine Mucus None /hpf 03/26/24 17:10 Vitals Last Vital Signs Temp 98.5 F 03/28/24 07:10 Pulse 83 03/28/24 07:59 Resp 16 03/28/24 07:44 BP 103/69 03/28/24 07:10 Pulse Ox 95 03/28/24 07:44 O2 Del Method Nasal Cannula 03/28/24 07:44 O2 Flow Rate 3 03/28/24 07:44 Discharge Plan Discharge Patient Disposition: Home Condition: Stable Prescriptions: New aspirin 81 mg Tablet,Delayed Release (Dr/Ec) 81 mg PO DAILY Qty: 30 0RF metoprolol succinate 25 mg Tablet Extended Release 24 Hr 12.5 mg PO DAILY Qty: 15 0RF Continued (DME) NEBULIZER AND SUPPLIES See Rx Instructions .Route .MEDSUPPLY Qty: 1 0RF Rx Instructions: As directed [employer] 160-9-4.8 mcg/actuation HFA aerosol inhaler 2 inh inhalation BID 30 Days Qty: 10.7 11RF insulin glargine [Lantus U-100 Insulin] 100 unit/mL solution 10 unit SUBCUT DAILY Patient Comments: sometime during the day pioglitazone [Actos] 45 mg tablet 45 mg PO DAILY 90 Days Qty: 90 1RF alprazolam 1 mg tablet 1 mg PO BID 30 Days Qty: 60 0RF esomeprazole magnesium [Nexium] 40 mg capsule,delayed release(DR/EC) 40 mg PO DAILY 90 Days Qty: 90 1RF (DME) pen needle, diabetic [Pen Needle] 32 gauge x 5/32 needle See Rx Instructions .ROUTE .MEDSUPPLY Qty: 100 5RF Rx Instructions: As directed (DME) EASY MAX Z TALKING METER STRIPS See Rx Instructions .Route .MEDSUPPLY Qty: 50 6RF Rx Instructions: TESTING TWICE DAILY nitroglycerin 0.4 mg tablet, sublingual 0.4 mg sublingual Q5M PRN (Reason: chest pain) Qty: 25 4RF Rx Instructions: do not exceed 3 doses per episode montelukast 10 mg tablet 10 mg PO DAILY 90 Days Qty: 90 1RF albuterol sulfate 2.5 mg /3 mL (0.083 %) solution for nebulization 2.5 mg inhalation TID PRN (Reason: Shortness Of Breath Or Wheezing) Rx Instructions: inhale ONE vial PER NEBULIZER THREE TIMES DAILY NEEDED FOR SHORTNESS OF BREATH OR wheezing glipizide 10 mg tablet extended release 24hr 20 mg PO QAM Ventolin HFA 90 mcg/actuation HFA aerosol inhaler 2 puff inhalation 6XD PRN (Reason: Shortness Of Breath Or Wheezing) Rx Instructions: INHALE TWO PUFFS into lungs six times DAILY NEEDED FOR SHORTNESS OF BREATH OR wheezing Discharge Orders: Discharge Order (Routine); Ordered 03/28/24 Ordered By: Loy Zhou Referrals: Jana Hall NP [Primary Care Provider] - 4-7 days Marisol Lugo FNP [Nurse Practitioner] - 1 week Discharge Diet: Cardiac Discharge Activity: Increase activity as tolerated Patient Instructions: Opioid Safety Activity Restrictions/Additional Instructions: Take all medicine as prescribed Follow-up with cardiology clinic next week with Marisol Lugo for SVT, status post angiogram Follow-up with your primary care provider 3 to 5 days Discharge Attestations Time Spent in Discharge Care*: greater than 30 min Quality Metrics Clinical Quality Measures [ No reported AMI, CVA or VTE this stay] Coding Level of Care Code 20800 Total time (in minutes) for Discharge: 45 Diagnoses SVT (supraventricular tachycardia) I47.10 Coronary artery disease I25.10 Elevated troponin R79.89 Primary hypertension I10 Hypertension type: primary hypertension
--- NOTE | 2024-03-28 09:09 | PC.CHAP ---
Pastoral Care Encounter/Spiritual Assessment Type of Contact [] Declined assurance specialist visit [] Patient/Family/Request visit [] Outpatient visit [] Follow-up visit [] Physician referral [] Code/Alert [x] Routine visit [] Staff referral [] Actively dying [] Patient sleeping [] Family support [] [] Out of room [] Palliative care [] [] Receiving care in room [] Pre-surgical visit [] Trauma [] Long length of stay [] ICU visit [] Other: Relational/Emotional Strength [x] Patient feels connected with others/family/visitors/staff [] Distress [] Loneliness/isolation [] Abandonment Spirituality of Patient [x] Person of Christen [] Attends Druze of their Christen [x] Believes in Prayer [] Reads Bible or Holiness materials [] There are Spiritual issues to be addressed Rn Allergy Interventions [x] Prayer [x] Active listening [] Non-anxious presence [x] Spiritual/emotional support [] Crisis/trauma care [] Spiritual counseling [] Bereavement support [] Provided bereavement packet [] Provided Bible/devotional materials [] Provided toy/stuffed animal, coloring book to patient or family member [] Provided Communion [] Anointing/[place] [] Salvation [x] Completed spiritual assessment [] Other: Impact on Illness or Injury [] Angry [] Fearful [] Anxious [] Often cries [] Exhaustion [] Unable to work [] Unable to attend baptism [] Unable to walk/stand [] Unable to read [] Unable to drive [] Unable to eat/drink [] Unable to sleep [] Unable to be with family [] Patient intubated [] Other: Summary Time spent with patient 5 min
[2024-03-28 11:57] LABS: Glucose Point of Care 299 mg/dL (70-110)
== END 2024-03-28 11:50 | disposition home or self-care (01) | DRG 281 ==
LOC: ER 09:17 → CSU 11:57
PROVIDERS: Emergency Medicine; Internal Medicine Cardiovascular Disease; Admitting Provider Internal Medicine; Emergency Provider Emergency Medicine; PCP Nurse Practitioner Family; Visit Provider Internal Medicine
PROC: 4A023N7 Measurement of Cardiac Sampling and Pressure, Left Heart, Percutaneous Approach (ICD-10-PCS; principal; 2024-03-27 11:00)
DX: I47.10 Supraventricular tachycardia, unspecified (principal); Z68.41 Body mass index [BMI] 40.0-44.9, adult; I21.A1 Myocardial infarction type 2; I25.10 Atherosclerotic heart disease of native coronary artery without angina pectoris; I10 Essential (primary) hypertension; J44.9 Chronic obstructive pulmonary disease, unspecified; E11.9 Type 2 diabetes mellitus without complications; F32.A Depression, unspecified; F41.9 Anxiety disorder, unspecified; E66.9 Obesity, unspecified; Z99.81 Dependence on supplemental oxygen; Z79.4 Long term (current) use of insulin; Z79.84 Long term (current) use of oral hypoglycemic drugs; Z87.891 Personal history of nicotine dependence
CPT/HCPCS: 36415; 36416; 71045; 80048; 80053; 81001; 82550; 82962; 83735; 83880; 84443; 84484; 85025; 85610; 85730; 93005; 93306; 93458; 94640; 96372; 99152; 99153; A9270; C1760; C1769; C1887; C1894; G0269; G0378; J1644; J1650; J1815; J2250; J3010; J3490; J7030; J7613; J7626; Q9967

== ENCOUNTER 2024-11-23 14:22 | Emergency (ER) | payer MEDICARE, SELFPAY ==
[2024-11-23 14:25] VITALS: BP 151/111; PULSE 71; RESP 16; TEMP 37; O2SAT 97; BMI 39.6
--- NOTE | 2024-11-23 14:45 | XR_ITS ---
WS: [email or web address] Exam: XR knee LT 3V* [id number] Date/Time of Exam: 11/23/2024 2:45 PM Reason For Exam: Pain No acute fracture. Minimal degenerative change and osteopenia. Very small joint effusion. Vascular calcifications posteriorly. XR/XR knee LT 3V* [id number] IMPRESSION: 1. Mild degenerative change and osteopenia. No fracture.
--- NOTE | 2024-11-23 15:03 | XR_ITS ---
WS: [email or web address] Exam: XR ankle LT min 3V* [id number] Date/Time of Exam: 11/23/2024 3:07 PM Reason For Exam: pain No acute fracture. The ankle mortise is equidistant. Soft tissues are unremarkable. Osteopenia. XR/XR ankle LT min 3V* [id number] IMPRESSION: 1. No acute fracture.
--- NOTE | 2024-11-23 15:05 | ED_ITS ---
HPI - Extremity Problem General: Chief complaint: Extremity Problem,Nontraumatic Stated complaint: KNEE PAIN Time Seen by Provider: 11/23/24 14:23 History of Present Illness: 69-year-old female presents emergency ro om complaining of knee pain has been going on for the last week no specific trauma or injury. Has a known history of osteoarthritis is supposed to be seeing orthopedics soon. No swelling of the leg no shortness of breath no chest pain. Associated symptoms: Deny chest pain, fever(s) or rash Related Data Home Medications ?Medication ?Instructions ?Recorded ?Confirmed albuterol sulfate 90 mcg/actuation 2 puff inhalation 6 XD PRN 03/26/24 11/23/24 aerosol inhaler (Ventolin HFA) Shortness Of Breath Or Wheezing glipizide 10 mg tablet, extended 20 mg PO QAM 03/26/24 11/23/24 release 24 hr linaclotide 72 mcg capsule 72 mcg PO DAILY 11/23/24 (Linzess) solifenacin 5 mg tablet 5 mg PO DAILY 11/23/2411/23 Previous Rx's ?Medication ?Instructions ?Recorded budesonide 160 mcg-glycopyr 9 2 inh inhalation BID 30 days #10.7 10/13/23 mcg-formot 4.8 mcg/actuation HFA grams inhaler (Breztri Aerosphere) nitroglycerin 0.4 mg sublingual 0.4 mg sublingual Q5M PRN chest 11/04/23 tablet pain #25 tabs alprazolam 1 mg tablet 1 mg PO BID anxiety 30 days #60 03/01/24 tabs esomeprazole magnesium 40 mg 40 mg PO DAILY 90 days #9 0 caps 03/01/24 capsule,delayed release (Nexium) pioglitazone 45 mg tablet (Actos) 45 mg PO DAILY 90 da ys #90 tabs 03/01/24 montelukast 10 mg tablet 10 mg PO DAILY 90 days #90 t abs 03/23/24 aspirin 81 mg tablet,delayed 81 mg PO DAILY #30 tabs 0 03/28/24 release metoprolol succinate 25 mg 12.5 mg (1/2 x 25 mg) PO DA DONNA #15 03/28/24 tablet,extended release 24 hr tabs methylprednisolone 4 mg tablets in See Rx Instructions PO .COMPLEX 05/16/25 a dose pack (Medrol (Tima)) #21 ea Allergies Allergy/AdvReac Type Severity Reaction Status Date / Time Biguanides Allergy Unknown Unknown Verified 03/26/24 05:09 amitriptyline Allergy Unknown Verified 03/26/24 05:09 dapagliflozin (From Farxiga) Allergy rash Verified 03/26/24 05:09 desvenlafaxine (From Pristiq) Allergy worsens Verified 03/26/24 05:09 depression diazepam Allergy Unknown Verified 03/26/24 05:09 diphenhydramine (From Allergy wheezing Verified 03/26/24 05:09 Benadryl) hydrocodone Allergy itching Verified 03/26/24 05:09 meloxicam Allergy gi symptoms Verified 03/26/24 05:09 metformin Allergy gi symptoms Verified 03/26/24 05:09 moxifloxacin (From Avelox) Allergy Unknown Verified 03/26/24 05:09 rofecoxib (From Vioxx) Allergy Unknown Verified 03/26/24 05:09 sertraline (From Zoloft) Allergy worsens Verified 03/26/24 05:09 depression Sulfa (Sulfonamide Allergy gi Verified 03/26/24 05:09 Antibiotics) symptoms, rash atorvastatin (From Lipitor) AdvReac myalgias Verified 03/26/24 05:09 lorazepam (From Ativan) AdvReac myoclonic Verified 03/26/24 05:09 jerking paroxetine (From Paxil) AdvReac worsens Verified 03/26/24 05:09 depression tirzepatide (From Mounjaro) AdvReac ADR-Diarrhe Verified 03/26/24 05:09 a Review of Systems Const: Denies: fever(s) or chills Card: Denies: chest pain Resp: Denies: dyspnea GI: Denies: abdominal pain : Denies: dysuria, urinary frequency or urinary urgency Musc: Reports: joint pain; Denies: neck pain or back pain Skin/Breast: Denies: rash PFSH ED PFSH: Medical History Obesity Coronary artery disease Enrolled in chronic care management Diabetes Hypertension Hyperlipidemia COPD (chronic obstructive pulmonary disease) Hypothyroid Depression Anxiety Chronic pain Surgical History History of hysterectomy History of coronary artery bypass graft Social History Smoking and tobacco/nicotine status: never used tobacco/nicotine Second hand smoke exposure: Yes Alcohol intake: never Substance/Drug Use: never Lives independently: Yes Household members: none Current gender identity: Female Physical Exam Const: COMMON NORMALS: no acute distress GENERAL APPEARANCE: cooperative and comfortable ORIENTATION/CONSCIOUSNESS: Yes awake, Yes oriented to person, Yes oriented to place and Yes oriented to time HENMT: COMMON NORMALS: normocephalic, atraumatic and hearing grossly normal bilaterally HEAD & SCALP: normocephalic and atraumatic Resp: COMMON NORMALS: normal respiratory effort, No retractions, No use of accessory muscles and clear to auscultation bilaterally AUSCULTATION: clear to auscultation bilaterally Cardio: COMMON NORMALS: regular rate, regular rhythm and No murmurs present (Cardio) RATE: regular rate RHYTHM: regular rhythm GI: COMMON NORMALS: Soft to palpation and No hepatosplenomegaly present AUSCULTATION: Yes normoactive bowel sounds PALPATION: Yes Soft to palpation, No Tenderness to palpation present (GI), No Guarding due to palpation present (GI) and Yes No hepatosplenomegaly present Extremity: COMMON NORMALS: normal to inspection, capillary refill normal, no clubbing, cyanosis or edema, no calf tenderness and no pedal edema Neuro: SENSORIUM/ORIENTATION: Yes oriented to person, Yes oriented to place and Yes oriented to time Skin: COMMON NORMALS: no rashes or lesions noted GENERAL SKIN EXAM: no rashes or lesions noted Course Vital Signs: Vital signs: Vital Signs Temperature 98.6 F 11/23/24 14:25 Pulse Rate 81 11/23/24 16:39 Respiratory Rate 16 11/23/24 14:25 Blood Pressure 151/111 11/23/24 14:25 Pulse Oximetry 98 11/23/24 16:39 Oxygen Delivery Me thod Nasal Cannula 11/23/24 14:25 Oxygen Flow Rate 3 11/23/24 14:25 MDM - Extremity (Nontraumatic) Medical Decision Making X-ray of the knee consistent with osteoarthritis nothing on exam suggesting of DVT. There is no fractures. Discharge home anti-inflammatories follow-up with orthopedics Medical Records I reviewed the patient's medical records. Lab Data Radiology Impressions Knee X-Ray 11/23/24 14:45 IMPRESSION: 1. Mild degenerative change and osteopenia. No fracture. Ankle X-Ray 11/23/24 15:03 IMPRESSION: 1. No acute fracture. All radiology interpretation(s) finalized by discharge Discharge Plan Discharge Patient Disposition: Home Clinical Impression: Osteoarthritis Qualifiers: Osteoarthritis location: knee Osteoarthritis type: primary Laterality: left Qualified Code(s): M17.12 - Unilateral primary osteoarthritis, left knee Condition: Stable Prescriptions: New methylprednisolone [Medrol (Tima)] 4 mg tablets,dose pack See Rx Instructions .ROUTE .COMPLEX Qty: 21 0RF Rx Instructions: orally per package directions No Action Breztri Aerosphere 160-9-4.8 mcg/actuation HFA aerosol inhaler 2 inh inhalation BID 30 Days Qty: 10.7 11RF pioglitazone [Actos] 45 mg tablet 45 mg PO DAILY 90 Days Qty: 90 1RF alprazolam 1 mg tablet 1 mg PO BID 30 Days Qty: 60 0RF esomeprazole magnesium [Nexium] 40 mg capsule,delayed release(DR/EC) 40 mg PO DAILY 90 Days Qty: 90 1RF nitroglycerin 0.4 mg tablet, sublingual 0.4 mg sublingual Q5M PRN (Reason: chest pain) Qty: 25 4RF Rx Instructions: do not exceed 3 doses per episode montelukast 10 mg tablet 10 mg PO DAILY 90 Days Qty: 90 1RF glipizide 10 mg tablet extended release 24hr 20 mg PO QAM albuterol sulfate [Ventolin HFA] 90 mcg/actuation HFA aerosol inhaler 2 puff inhalation 6XD PRN (Reason: Shortness Of Breath Or Wheezing) Rx Instructions: INHALE TWO PUFFS into lungs six times DAILY NEEDED FOR SHORTNESS OF BREATH OR wheezing aspirin 81 mg Tablet,Delayed Release (Dr/Ec) 81 mg PO DAILY Qty: 30 0RF metoprolol succinate 25 mg Tablet Extended Release 24 Hr 12.5 mg PO DAILY Qty: 15 0RF solifenacin 5 mg tablet 5 mg PO DAILY Linzess 72 mcg capsule 72 mcg PO DAILY Discharge Orders: Discharge ED (Routine); Ordered 11/23/24 Ordered By: Tyler Castle Discharge Diet: Usual diet Discharge Activity: Increase activity as tolerated Patient Instructions: Opioid Safety, Pain Management Activity Restrictions/Additional Instructions: Thank you for choosing [facility] for your healthcare needs today. It is very important that you follow up as instructed or that you return to the Emergency Department should you have concerns or if your condition changes or worsens in any way. You are seen in the emergency room for knee and ankle pain. X-rays do not show any acute fractures do show arthritic changes. 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
[2024-11-23 16:39] VITALS: PULSE 81; O2SAT 98
== END 2024-11-23 16:40 | disposition home or self-care (01) ==
PROVIDERS: Emergency Provider Family Medicine
DX: M17.12 Unilateral primary osteoarthritis, left knee (principal); Z79.82 Long term (current) use of aspirin; J44.9 Chronic obstructive pulmonary disease, unspecified; E11.9 Type 2 diabetes mellitus without complications; I10 Essential (primary) hypertension; E78.5 Hyperlipidemia, unspecified; I25.10 Atherosclerotic heart disease of native coronary artery without angina pectoris
CPT/HCPCS: 73562; 73610; 99283

== ENCOUNTER 2024-12-06 15:06 | Inpatient (IN) | payer MEDICARE, SELFPAY ==
[2024-12-06] VITALS (8 sets, daily range): BP systolic 83–133; BP diastolic 58–79; PULSE 85–116; RESP 14–16; TEMP 36.3; O2SAT 91–99; BMI 34.2
--- NOTE | 2024-12-06 15:28 | XRR_ITS ---
PROCEDURE INFORMATION: Exam: XR Chest Exam date and time: 12/06/2024 4:01 PM Age: 69 years old Clinical indication: Cough and dyspnea; Additional info: Dyspnea/cough TECHNIQUE: Imaging protocol: Radiologic exam of the chest. Views: 1 view. COMPARISON: CR XR chest 1V portable [id number] 03/26/2024 5:17 AM FINDINGS: Lungs: Chronic reticular interstitial changes are stable. No consolidation. No focal mass. Pleural spaces: Unremarkable. No pleural effusion. No pneumothorax. Heart/Mediastinum: CABG. Borderline cardiac enlargement. Bones/joints: Unremarkable. XR/XR chest 1V portable [id number] IMPRESSION: No acute chest pathology identified.
--- NOTE | 2024-12-06 15:36 | ED_ITS ---
HPI - Abdominal Pain 2 General: Chief Complaint: ER Hold Stated Complaint: lower back/abdominal pain Time Seen by Provider: 12/06/24 15:28 History of Present Illness: 69-year-old female presents emergency ro om complaining of back pain abdominal pain and nausea. She refers to her left flank and left lumbar region. She denies dysuria urgency or frequency she has been very nauseous but no vomiting. She states she has been very weak she is planning to be admitted to the detention she is not able to care for herself there is no family at the bedside we are unable to find any family to contact the only contact we could find was a landlord they did not know any family members. Patient denies any chest pain or shortness of breath at this time. She is chronically on oxygen at 3 L. Associated Symptoms: Denies chills, dysuria and fever(s) Related Data Home Medications ?Medication ?Instructions ?Recorded ?Confirmed albuterol sulfate 90 mcg/actuation 2 puff inhalation 6 XD PRN 03/26/24 11/23/24 aerosol inhaler (Ventolin HFA) Shortness Of Breath Or Wheezing glipizide 10 mg tablet, extended 20 mg PO QAM 03/26/24 11/23/24 release 24 hr linaclotide 72 mcg capsule 72 mcg PO DAILY 11/23/24 (Linzess) solifenacin 5 mg tablet 5 mg PO DAILY 11/23/2411/23 Previous Rx's ?Medication ?Instructions ?Recorded budesonide 160 mcg-glycopyr 9 2 inh inhalation BID 30 days #10.7 10/13/23 mcg-formot 4.8 mcg/actuation HFA grams inhaler (Breztri Aerosphere) nitroglycerin 0.4 mg sublingual 0.4 mg sublingual Q5M PRN chest 11/04/23 tablet pain #25 tabs alprazolam 1 mg tablet 1 mg PO BID anxiety 30 days #60 03/01/24 tabs esomeprazole magnesium 40 mg 40 mg PO DAILY 90 days #9 0 caps 03/01/24 capsule,delayed release (Nexium) pioglitazone 45 mg tablet (Actos) 45 mg PO DAILY 90 da ys #90 tabs 03/01/24 montelukast 10 mg tablet 10 mg PO DAILY 90 days #90 t abs 03/23/24 aspirin 81 mg tablet,delayed 81 mg PO DAILY #30 tabs 0 03/28/24 release metoprolol succinate 25 mg 12.5 mg (1/2 x 25 mg) PO DA DONNA #15 03/28/24 tablet,extended release 24 hr tabs methylprednisolone 4 mg tablets in See Rx Instructions PO .COMPLEX 11/23/24 a dose pack (Medrol (Tima)) #21 ea Allergies Allergy/AdvReac Type Severity Reaction Status Date / Time Biguanides Allergy Unknown Unknown Verified 03/26/24 05:09 amitriptyline Allergy Unknown Verified 03/26/24 05:09 dapagliflozin (From Farxiga) Allergy rash Verified 03/26/24 05:09 desvenlafaxine (From Pristiq) Allergy worsens Verified 03/26/24 05:09 depression diazepam Allergy Unknown Verified 03/26/24 05:09 diphenhydramine (From Allergy wheezing Verified 03/26/24 05:09 Benadryl) hydrocodone Allergy itching Verified 03/26/24 05:09 meloxicam Allergy gi symptoms Verified 03/26/24 05:09 metformin Allergy gi symptoms Verified 03/26/24 05:09 moxifloxacin (From Avelox) Allergy Unknown Verified 03/26/24 05:09 rofecoxib (From Vioxx) Allergy Unknown Verified 03/26/24 05:09 sertraline (From Zoloft) Allergy worsens Verified 03/26/24 05:09 depression Sulfa (Sulfonamide Allergy gi Verified 03/26/24 05:09 Antibiotics) symptoms, rash atorvastatin (From Lipitor) AdvReac myalgias Verified 03/26/24 05:09 lorazepam (From Ativan) AdvReac myoclonic Verified 03/26/24 05:09 jerking paroxetine (From Paxil) AdvReac worsens Verified 03/26/24 05:09 depression tirzepatide (From Mounjaro) AdvReac ADR-Diarrhe Verified 03/26/24 05:09 a Review of Systems 2 Const: Denies: fever(s) or chills Card: Denies: chest pain Resp: Denies: dyspnea GI: Denies: abdominal pain : Denies: dysuria, urinary frequency or urinary urgency Musc: Denies: neck pain or back pain Skin/Breast: Denies: rash PFSH ED 2 PFSH: Medical History Obesity Coronary artery disease Enrolled in chronic care management Diabetes Hypertension Hyperlipidemia COPD (chronic obstructive pulmonary disease) Hypothyroid Depression Anxiety Chronic pain Surgical History History of hysterectomy History of coronary artery bypass graft Social History Smoking and tobacco/nicotine status: never used tobacco/nicotine Second hand smoke exposure: Yes Alcohol intake: never Substance/Drug Use: never Lives independently: Yes Household members: none Current gender identity: Female Physical Exam 2 Const: GENERAL APPEARANCE: cooperative ORIENTATION/CONSCIOUSNESS: Yes awake, Yes oriented to person, Yes oriented to place and Yes oriented to time HENMT: COMMON NORMALS: normocephalic, atraumatic and hearing grossly normal bilaterally HEAD & SCALP: normocephalic and atraumatic Resp: COMMON NORMALS: normal respiratory effort, No retractions, No use of accessory muscles and clear to auscultation bilaterally AUSCULTATION: clear to auscultation bilaterally Cardio: COMMON NORMALS: regular rate, regular rhythm and No murmurs present (Cardio) RATE: regular rate RHYTHM: regular rhythm GI: COMMON NORMALS: Soft to palpation and No hepatosplenomegaly present A USCULTATION: Yes normoactive bowel sounds PALPATION: Yes Soft to palpation, No Tenderness to palpation present (GI), No Guarding due to palpation present (GI) and Yes No hepatosplenomegaly present Extremity: COMMON NORMALS: normal to inspection, capillary refill normal, no clubbing, cyanosis or edema, no calf tenderness and no pedal edema Neuro: SENSORIUM/ORIENTATION: Yes oriented to person, Yes oriented to place and Yes oriented to time Skin: COMMON NORMALS: no rashes or lesions noted GENERAL SKIN EXAM: no rashes or lesions noted Course 2 Vital Signs: Vital signs: Vital Signs Temperature 97.4 F L 12/06/24 15:13 Pulse Rate 103 H 12/07/24 06:20 Respiratory Rate 14 12/07/24 00:00 Blood Pressure 94/61 12/07/24 06:20 Pulse Oximetry 94 12/07/24 06:25 Oxygen Delivery Me thod Nasal Cannula 12/07/24 06:25 Oxygen Flow Rate 4 12/07/24 06:25 MDM - Abdominal Pain Medical Decision Making CT shows dilation of the right ureter but no obstruction no stones. She does not have an acute kidney injury at this time. She does have a mild anion gap, UA shows signs of infection there is some stranding around the kidney. Alk phos slightly elevated but LFTs and T. bili are normal will admit for pyelonephritis. She has a remote urine culture that is nearly 5 years old. It did show some resistance we will start her on Zosyn for now. CT of the abdomen was otherwise unremarkable. Discussed with hospitalist orders written for admission to the medical surgical floor. Medical Records I reviewed the patient's medical records. Lab Data I reviewed the patient's lab results. 12/07/24 02:28 12/07/24 02:28 Labs/Radiology: Radiology Impressions Chest X-Ray 12/06/24 15:28 IMPRESSION: No acute chest pathology identified. Abdomen/Pelvis CT 12/06/24 16:30 IMPRESSION: Abnormal dilatation of the right ureter of uncertain etiology Head CT 12/06/24 18:29 IMPRESSION: No acute intracranial abnormality. Senescent changes. Renal Ultrasound 12/06/24 18:29 IMPRESSION: Mild right-sided pelviectasis. Only the left ureteral jet is visualized. Laboratory Results WBC 17.79 10^3/uL (3.29-11.43) H 12/06/24 15:50 RBC 5.16 10^6/uL (3.85-5.65) 12/06/24 15:50 Hgb 13.90 g/dL (11.27-16.99) 12/06/24 15:50 Hct 44.1 % (36-47) 12/06/24 15:50 MCV 85.5 fl (85-98) 12/06/24 15:50 MCH 26.9 pg (27-33) L 12/06/24 15:50 MCHC 31.5 g/dL (30-55) 12/06/24 15:50 RDW 14.9 % (12.1-15.1) 12/06/24 15:50 Plt Count 428 10^3/cmm (157-399) H 12/06/24 15:50 MPV 10.1 fL (7.4-10.4) 12/06/24 15:50 Neut % (Auto) 95.6 % 12/06/24 15:50 Lymph % (Auto) 1.9 % 12/06/24 15:50 [place] % (Auto) 1.6 % 12/06/24 15:50 Eos % (Auto) 0.1 % 12/06/24 15:50 Baso % (Auto) 0.4 % 12/06/24 15:50 Neut # (Auto) 17.01 10^3/uL (1.8-7.7) H 12/06/24 15:50 Lymph # (Auto) 0.3 10^3/uL (0.8-4.8) L 12/06/24 15:50 [place] # (Auto) 0.3 10^3/uL (0.2-0.9) 12/06/24 15:50 Eos # (Auto) 0.0 10^3/uL (0.0-0.8) 12/06/24 15:50 Baso # (Auto) 0.1 10^3/uL (0.0-0.1) 12/06/24 15:50 Nucleated RBC % (auto) 0 % 12/06/24 15:50 Nucleated RBCs # 0.0 /100WBC 12/06/24 15:50 Specimen Type Arterial 12/06/24 15:33 Sample Site Radial, right 12/06/24 15:33 ABG pH 7.41 (7.35-7.45) 12/06/24 15:33 ABG pCO2 42.1 mmHg (35-45) 12/06/24 15:33 ABG pO2 78.0 mmHg (80.0-100.0) L 12/06/24 15:33 ABG HCO3 26.8 mmol/L (22-26) H 12/06/24 15:33 ABG O2 Saturation 96.3 12/06/24 15:33 ABG Base Excess 1.9 mmol/L (-2.0-2.0) 12/06/24 15:33 Faustino Test Pos 12/06/24 15:33 A-a O2 Gradient 2.5 mmHg (5-10) L 12/06/24 15:33 Hematocrit 43.7 % (37-47) 12/06/24 15:33 Hgb O2 Saturation 94.0 % (95-100) L 12/06/24 15:33 Carboxyhemoglobin 1.4 %THgb (0.4-20.1) 12/06/24 15:33 Methemoglobin 1.0 % (0.4-1.5) 12/06/24 15:33 Total Hemoglobin 14.3 g/dL (12-16) 12/06/24 15:33 Sodium 137.0 mmol/L (131-143) 12/06/24 15:33 Potassium 4.5 mmol/L (3.5-5.0) 12/06/24 15:33 Glucose 476.0 mg/dL (70-115) H 12/06/24 15:33 Ionized Calcium 1.2 mmol/L (1.1-1.4) 12/06/24 15:33 O2 Delivery Device Nc 12/06/24 15:33 O2 Liters/Min 3.0 % 12/06/24 15:33 Electrical Maintenance Worker ID [place] 12/06/24 15:33 Sodium 133 mmol/L (136-145) L 12/06/24 15:50 Potassium 4.5 mmol/L (3.5-5.1) 12/06/24 15:50 Chloride 92 mmol/L (98-107) L 12/06/24 15:50 Carbon Dioxide 23 mmol/L (22-29) 12/06/24 15:50 Anion Gap 22.5 (5-19) H 12/06/24 15:50 BUN 16 mg/dL (8-23) 12/06/24 15:50 Creatinine 0.9 mg/dL (0.5-0.9) 12/06/24 15:50 GFR Calculation 61.9 mL/min (90-130) L 12/06/24 15:50 Glucose 441 mg/dL (65-115) H 12/06/24 15:50 POC Glucose 443 mg/dL (70-110) H 12/06/24 15:16 Estimat Average Glucose 349 12/06/24 15:52 Hemoglobin A1c 13.8 % (4.0-6.0) H 12/06/24 15:52 Calculated Osmolality 296 mOsm/kg (285-295) H 12/06/24 15:50 Lactic Acid 1.0 mmol/L (0.5-2.2) 12/06/24 18:36 Calcium 10.0 mg/dL (8.5-10.5) 12/06/24 15:50 Total Bilirubin 0.7 mg/dL (0.15-1.2) 12/06/24 15:50 AST 25 U/L (0-32) 12/06/24 15:50 ALT 10 U/L (0-33) 12/06/24 15:50 Alkaline Phosphatase 214 U/L (35-105) H 12/06/24 15:50 Troponin T Baseline 61 ng/L (0-10) H 12/06/24 18:36 C-Reactive Protein 23.1 mg/L (0.0-4.9) H 12/06/24 18:36 Total Protein 8.3 g/dL (6.6-8.7) 12/06/24 15:50 Albumin 4.0 g/dL (3.5-5.2) 12/06/24 15:50 Globulin 4.3 g/dL (1.3-4.6) 12/06/24 15:50 Lipase 9 U/L (13-60) L 12/06/24 15:50 Procalcitonin 8.73 ng/mL (0-0.5) H 12/06/24 18:36 TSH 2.32 uIU/mL (0.27-4.20) 12/06/24 18:36 Urine Color Yellow (Yellow) 12/06/24 15:36 Urine Appearance Clear (CLEAR) 12/06/24 15:36 Urine pH 7.0 (5-7) 12/06/24 15:36 Ur Specific [place] 1.018 (1.005-1.030) 12/06/24 15:36 Urine Protein Negative (Negative) 12/06/24 15:36 Urine Glucose (UA) 2+ (Normal) H 12/06/24 15:36 Urine Ketones Trace (Negative) 12/06/24 15:36 Urine Blood Negative (Negative) 12/06/24 15:36 Urine Nitrate Negative (Negative) 12/06/24 15:36 Urine Bilirubin Negative (Negative) 12/06/24 15:36 Urine Urobilinogen 0.2 mg/dL (Negative) 12/06/24 15:36 Ur Leukocyte Esterase Negative (Negative) 12/06/24 15:36 Urine RBC 0-2 /hpf (0-2) 12/06/24 15:36 Urine WBC 6-10 /hpf (0-5) 12/06/24 15:36 Ur Squamous Epith Cells 0-5 /hpf (0-5) 12/06/24 15:36 Amorphous Sediment Not Reportable 12/06/24 15:36 Urine Bacteria Exceeds /hpf (NONE) 12/06/24 15:36 Hyaline Casts 0-4 /lpf H 12/06/24 15:36 Urine Opiates Screen Negative ng/mL (Negative) 12/06/24 15:36 Ur Barbiturates Screen Negative ng/mL (Negative) 12/06/24 15:36 Ur Phencyclidine Scrn Negative ng/mL (Negative) 12/06/24 15:36 Ur Amphetamines Screen Negative ng/mL (Negative) 12/06/24 15:36 U Benzodiazepines Scrn Positive ng/mL (Negative) H 12/06/24 15:36 Urine Cocaine Screen Negative ng/mL (Negative) 12/06/24 15:36 U Marijuana (THC) Screen Negative ng/mL (Negative) 12/06/24 15:36 Ethyl Alcohol < 10 mg/dL (0-10) 12/06/24 18:36 Serum Ketones Negative (Negative) 12/06/24 15:50 All radiology interpretation(s) finalized by discharge Discharge Plan Discharge Patient Disposition: Admitted As Inpatient Admit Provider: Uli Lai Clinical Impression: Pyelonephritis, Sinus tachycardia, Acute hyperglycemia, Diabetes, Right ureter dilated, Encephalopathy Condition: Stable Coding Level of Care Code 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
[2024-12-06 15:44] LABS: ABG PCO2 42.1 mmHg (35-45); ABG PH Result 7.41 (7.35-7.45); Alveolar-Arterial Oxygen Gradi 2.5 mmHg (5-10); Arterial Blood Gas Hematocrit 43.7 % (37-47); Base Excess ABG 1.9 mmol/L (-2.0-2.0); Blood Gas Allen Test Pos; Blood Gas Operator Identificat WALCI; Blood Gas Sample Site Radial, right; Blood Gas Sample Type Arterial; Carboxyhemoglobin 1.4 %THgb (0.4-20.1); HCO3 ABG 26.8 mmol/L (22-26); Ionized Calcium Level - ABG 1.2 mmol/L (1.1-1.4); Oxygen Device NC; Oxygen Saturation ABG 96.3; Potassium Level - ABG 4.5 mmol/L (3.5-5.0); Total Hemoglobin 14.3 g/dL (12-16)
[2024-12-06 15:56] LABS: Bilirubin Urine Negative (Negative); Blood Urine Negative (Negative); Glucose Urine UA 2+ (Normal); Ketones Urine Trace (Negative); Leukocyte Esterase Urine Negative (Negative); Nitrate Urine Negative (Negative); Protein Urine Negative (Negative); Specific Gravity, Urine 1.018 (1.005-1.030); Urine Appearance Clear (CLEAR); Urine Color Yellow (Yellow); Urobilinogen Urine 0.2 mg/dL (Negative)
[2024-12-06 15:59] LABS: Basophils # 0.1 10^3/uL (0.0-0.1); Basophils % 0.4 %; Eosinophils % 0.1 %; Hematocrit 44.1 % (36-47); Lymphocytes # 0.3 10^3/uL (0.8-4.8); Lymphocytes % 1.9 %; Mean Corpuscular HGB Conc 31.5 g/dL (30-55); Mean Corpuscular Hemoglobin 26.9 pg (27-33); Mean Corpuscular Volume 85.5 fl (85-98); Mean Platelet Volume 10.1 fL (7.4-10.4); Monocytes # 0.3 10^3/uL (0.2-0.9); Monocytes % 1.6 %; Neutrophils # 17.01 10^3/uL (1.8-7.7); Neutrophils % 95.6 %; Nucleated Red Blood Cells % 0 %; Platelet Count 428 10^3/cmm (157-399); Red Blood Count 5.16 10^6/uL (3.85-5.65); Red Cell Distribution Width 14.9 % (12.1-15.1); White Blood Count 17.79 10^3/uL (3.29-11.43)
[2024-12-06 16:01] LABS: Add Urine Microscopic? YES; Bacteria Urine EXCEEDS /hpf; Hyaline Casts Urine 0-4 /lpf; RBC Urine 0-2 /hpf (0-2); Squamous Epithelial Cell Urine 0-5 /hpf (0-5)
[2024-12-06 16:08] LABS: Glucose Point of Care 443 mg/dL (70-110)
--- NOTE | 2024-12-06 16:12 | ECG_ITS ---
[facility] Test Date: 2024-12-06 Pat Name: Sabrina Delvalle Department: Room: Gender: Female Provider Education Specialist: : [id number] Requested By: Tyler Reagan Order Number: [id number] Reading MD: Measurements Intervals [place] Rate: 113 P: 50 OR: 156 QRS: -2 QRSD: 85 T: 66 QT: 338 QTc: 464 Interpretive Statements SINUS TACHYCARDIA NONSPECIFIC T-WAVE ABNORMALITY ABNORMAL RHYTHM ECG [email or web address]
[2024-12-06 16:21] LABS: Alanine Aminotransferase 10 U/L (0-33); Alkaline Phosphatase 214 U/L (35-105); Anion Gap 22.5 (5-19); Aspartate Amino Transferase 25 U/L (0-32); Blood Urea Nitrogen 16 mg/dL (8-23); Carbon Dioxide 23 mmol/L (22-29); Chloride 92 mmol/L (98-107); Creatinine Clr Calc Pharmacy 54.2218; Globulin 4.3 g/dL (1.3-4.6); Glomerular Filtration Rate 61.9 mL/min (90-130); Glucose 441 mg/dL (65-115); Ketone (Acetest) Serum Negative (Negative); Lipase 9 U/L (13-60); Osmolality Calculated 296 mOsm/kg (285-295); Potassium 4.5 mmol/L (3.5-5.1); Sodium 133 mmol/L (136-145); Total Bilirubin 0.7 mg/dL (0.15-1.2); Total Protein 8.3 g/dL (6.6-8.7)
--- NOTE | 2024-12-06 16:30 | CTR_ITS ---
PROCEDURE INFORMATION: Exam: CT Abdomen And Pelvis Without Contrast Exam date and time: 12/06/2024 5:30 PM Age: 69 years old Clinical indication: Abdominal pain; Generalized TECHNIQUE: Imaging protocol: Computed tomography of the abdomen and pelvis without contrast. Radiation optimization: All CT scans at this facility use at least one of these dose optimization techniques: automated exposure control; mA and/or kV adjustment per patient size (includes targeted exams where dose is matched to clinical indication); or iterative reconstruction. COMPARISON: CR XR chest 1V portable [id number] 12/06/2024 4:01 PM RADIATION DOSE METRICS: Total DLP (mGy-cm): 825.63 FINDINGS: Lungs: Linear atelectasis involves both lung bases. Liver: Normal. No mass. Gallbladder and biliary ducts: Normal. No calcified stones. No ductal dilation. Pancreas: Normal. No ductal dilation. Spleen: Normal. No splenomegaly. Adrenal glands: Normal. No mass. Kidneys and ureters: See Urinary bladder finding. Stomach and bowel: Unremarkable. No obstruction. No mucosal thickening. Appendix: No evidence of appendicitis. Intraperitoneal space: Unremarkable. No free air. No significant fluid collection. Vasculature: Unremarkable. No abdominal aortic aneurysm. Lymph nodes: Unremarkable. No enlarged lymph nodes. Urinary bladder: There is abnormal dilatation of the right ureter down to the level of the bladder. No ureteral stone noted. Reproductive: Unremarkable as visualized. Bones/joints: Unremarkable. No acute fracture. Soft tissues: Unremarkable. CT/CT abdomen pelvis wo con [id number] IMPRESSION: Abnormal dilatation of the right ureter of uncertain etiology
--- NOTE | 2024-12-06 17:45 | PC.NURSE ---
this nurse is attempting to contact PT family to help with HX and dispo. PT reports that she has no family or close friends able to help her. Both contact numbers in PTs chart are not working numbers
--- NOTE | 2024-12-06 18:29 | USR_ITS ---
PROCEDURE INFORMATION: Exam: US Retroperitoneal, Complete, Kidneys and Bladder Exam date and time: 12/06/2024 7:16 PM Age: 69 years old Clinical indication: Abnormal findings; Abnormal radiologic finding of the abdomen; Right ureteral dilation seen on CT TECHNIQUE: Imaging protocol: Real-time ultrasound of the retroperitoneum with image documentation. Complete exam focused on the bilateral kidneys and urinary bladder. COMPARISON: CT abdomen pelvis wo con [id number] 12/06/2024 5:30 PM FINDINGS: Right kidney: The right kidney measures 4.8 x 5.8 x 12.1 cm. Mild pelviectasis. Left kidney: The left kidney measures 5.7 x 5.4 x 10.6 cm. No hydronephrosis. Urinary bladder: The urinary bladder appears unremarkable. Only the left ureteral jet is visualized. US/US renal BI* [id number] IMPRESSION: Mild right-sided pelviectasis. Only the left ureteral jet is visualized.
--- NOTE | 2024-12-06 18:29 | CTR_ITS ---
PROCEDURE INFORMATION: Exam: CT Head Without Contrast Exam date and time: 12/06/2024 7:57 PM Age: 69 years old Clinical indication: Altered mental status/memory loss; Confusion or disorientation; New onset of confusion; Additional info: AMS TECHNIQUE: Imaging protocol: Computed tomography of the head without contrast. Radiation optimization: All CT scans at this facility use at least one of these dose optimization techniques: automated exposure control; mA and/or kV adjustment per patient size (includes targeted exams where dose is matched to clinical indication); or iterative reconstruction. COMPARISON: No relevant prior studies available. RADIATION DOSE METRICS: Total DLP (mGy-cm): 1069.28 FINDINGS: Brain: Age-related brain parenchymal atrophy. Areas of hypoattenuation in the periventricular and subcortical deep white matter likely on the basis of chronic microvascular ischemic changes. No acute intra cranial hemorrhage. No mass effect or midline shift. No definitive CT evidence of acute territorial infarction. Cerebral ventricles: Prominence of the lateral ventricular system likely on the basis of parenchymal volume loss. Paranasal sinuses: Paranasal sinus mucosal thickening. Mastoid air cells: Visualized mastoid air cells are well aerated. Bones: Intact calvarium. Soft tissues: Unremarkable. CT/CT head wo con* [id number] IMPRESSION: No acute intracranial abnormality. Senescent changes.
--- NOTE | 2024-12-06 18:29 | P.HP_ITS ---
Providers/Chief Complaint 2 Admitting Physician: Uli Lai MD Chief Complaint: lower back/abdominal pain History of Present Illness Sabrina Delvalle is a 69 year old female with a past medical history of COPD, on chronic O2, CAD, hypertension, SVT Who presents [facility] for abdominal pain, bilateral flank pain, nausea, vomiting, fatigue, malaise. Currently patient is alert to person, place, time she follows commands, during our conversation she does become confused at times, but is easily redirectable, she tells me that she lives in [place], she lives by herself, she today started to have nausea, vomiting, abdominal pain, flank pain, no dysuria, hematuria she tells me that she sometimes uses her insulin, her blood sugars are quite elevated, does report subjective fevers, chills, lightheadedness, no chest pain, no palpitations, denies a history of kidney stones, Review of Systems 2 Const: Reports: fever(s) and chills Resp: Denies: dyspnea GI: Reports: abdominal pain, nausea and vomiting : Reports: flank pain Medications/Allergies Home Medications ?Medication ?Instructions ?Recorded ?Confirmed ?Last Taken ?Type budesonide 160 mcg-glycopyr 9 2 inh inhalation BID 30 days #10.7 10/13/23 11/23/24 11/23/24 Rx mcg-formot 4.8 mcg/actuation HFA grams inhaler (Breztri Aerosphere) nitroglycerin 0.4 mg sublingual 0.4 mg sublingual Q5M PRN chest 11/04/23 11/23/24 Unknown Rx tablet pain #25 tabs alprazolam 1 mg tablet 1 mg PO BID anxiety 30 days #60 03/01/24 11/23/24 11/23/24 Rx tabs esomeprazole magnesium 40 mg 40 mg PO DAILY 90 days #9 0 caps 03/01/24 11/23/24 11/23/24 Rx capsule,delayed release (Nexium) pioglitazone 45 mg tablet (Actos) 45 mg PO DAILY 90 da ys #90 tabs 03/01/24 11/23/24 11/23/24 Rx montelukast 10 mg tablet 10 mg PO DAILY 90 days #90 t abs 03/23/24 11/23/24 11/23/24 Rx albuterol sulfate 90 mcg/actuation 2 puff inhalation 6 XD PRN 03/26/24 11/23/24 Unknown History aerosol inhaler (Ventolin HFA) Shortness Of Breath Or Wheezing glipizide 10 mg tablet, extended 20 mg PO QAM 03/26/24 11/23/24 11/23/24 History release 24 hr aspirin 81 mg tablet,delayed 81 mg PO DAILY #30 tabs 0 03/28/24 11/23/24 11/23/24 Rx release metoprolol succinate 25 mg 12.5 mg (1/2 x 25 mg) PO DA DONNA #15 03/28/24 11/23/24 11/23/24 Rx tablet,extended release 24 hr tabs linaclotide 72 mcg capsule 72 mcg PO DAILY 11/23/2411/23/24 History (Linzess) methylprednisolone 4 mg tablets in See Rx Instructions PO .COMPLEX 11/23/24 Unknown Rx a dose pack (Medrol (Tima)) #21 ea solifenacin 5 mg tablet 5 mg PO DAILY 11/23/2411/2311/23/24 History Allergies Allergy/AdvReac Type Severity Reaction Status Date / Time Biguanides Allergy Unknown Unknown Verified 03/26/24 05:09 amitriptyline Allergy Unknown Verified 03/26/24 05:09 dapagliflozin (From Farxiga) Allergy rash Verified 03/26/24 05:09 desvenlafaxine (From Pristiq) Allergy worsens Verified 03/26/24 05:09 depression diazepam Allergy Unknown Verified 03/26/24 05:09 diphenhydramine (From Allergy wheezing Verified 03/26/24 05:09 Benadryl) hydrocodone Allergy itching Verified 03/26/24 05:09 meloxicam Allergy gi symptoms Verified 03/26/24 05:09 metformin Allergy gi symptoms Verified 03/26/24 05:09 moxifloxacin (From Avelox) Allergy Unknown Verified 03/26/24 05:09 rofecoxib (From Vioxx) Allergy Unknown Verified 03/26/24 05:09 sertraline (From Zoloft) Allergy worsens Verified 03/26/24 05:09 depression Sulfa (Sulfonamide Allergy gi Verified 03/26/24 05:09 Antibiotics) symptoms, rash atorvastatin (From Lipitor) AdvReac myalgias Verified 03/26/24 05:09 lorazepam (From Ativan) AdvReac myoclonic Verified 03/26/24 05:09 jerking paroxetine (From Paxil) AdvReac worsens Verified 03/26/24 05:09 depression tirzepatide (From Mounjaro) AdvReac ADR-Diarrhe Verified 03/26/24 05:09 a PFSH Acute 2 PFSH: Medical History Obesity Coronary artery disease Enrolled in chronic care management Diabetes Hypertension Hyperlipidemia COPD (chronic obstructive pulmonary disease) Hypothyroid Depression Anxiety Chronic pain Surgical History History of hysterectomy History of coronary artery bypass graft Social History Smoking and tobacco/nicotine status: never used tobacco/nicotine Second hand smoke exposure: Yes Alcohol intake: never Substance/Drug Use: never Lives independently: Yes Household members: none Current gender identity: Female Vitals/I&O/Wt Last Vital Signs Temp 97.4 F L 12/06/24 15:13 Pulse 109 H 12/06/24 16:19 Resp 16 12/06/24 15:13 BP 133/79 12/06/24 16:19 Pulse Ox 96 12/06/24 16:19 O2 Del Method Nasal Cannula 12/06/24 15:13 O2 Flow Rate 4 12/06/24 15:13 Weight last 48 hrs Weight 79.379 kg Physical Exam 2 Const: COMMON NORMALS: no acute distress EXAM LIMITATIONS: altered mental status ORIENTATION/CONSCIOUSNESS: Yes awake, Yes oriented to person and Yes oriented to place HENMT: COMMON NORMALS: normocephalic HEAD & SCALP: normocephalic Eye: COMMON NORMALS: Equal, round and reactive pupils present Neck/C-Spine: COMMON NORMALS: no JVD Lymph: LYMPHATIC: no lymphadenopathy noted Resp: COMMON NORMALS: normal respiratory effort, No retractions, No use of accessory muscles and clear to auscultation bilaterally AUSCULTATION: clear to auscultation bilaterally Cardio: COMMON NORMALS: regular rate, regular rhythm, S1 normal heart sound present and S2 normal heart sound present RATE: regular rate RHYTHM: r egular rhythm HEART SOUNDS: S1 normal heart sound present and S2 normal heart sound present GI: COMMON NORMALS: Normal to inspection, nondistended, normoactive bowel sounds present, Soft to palpation and non-tender : OTHER: Bilateral CVA tenderness Extremity: COMMON NORMALS: no calf tenderness and no pedal edema Neuro: COMMON NORMALS: CN's II-XII intact bilaterally and moves all extremities Skin: NARRATIVE SKIN EXAM: Rash on abdomen 1 x 1 cm superficial patient does not know how she got it Bilateral inguinal regions, candidiasis infection OTHER: Sepsis examination, patient is septic, time examined 12/06/2024 at 620 PM, DP PT pulses palpable, cap refill less than 2 seconds, no mottling bilateral lower extremities, toenails are enlarged unkempt, onychomycosis Data 12/06/24 15:50 12/06/24 15:50 Micro: Microbiology 12/06/24 16:43 Blood Culture - Preliminary Blood SPECIMEN COLLECTED 12/06/24 16:43 Blood Culture - Preliminary Blood SPECIMEN COLLECTED A&P Assessment and plan (1) SVT (supraventricular tachycardia): (2) Coronary artery disease: (3) Hypertension: (4) Altered mental status: (5) Pyelonephritis: (6) Hyperglycemia: (7) Right ureter dilated: (8) Sepsis: Plan Acute encephalopathy - Likely secondary to UTI, pyelonephritis, sepsis, - Monitor mentation - CT head UTI, pyelonephritis - History of Enterococcus UTI - Evaluated CRP, Pro-Geovanny - Continue vancomycin, Zosyn - Follow urine culture - Follow-up cultures Sepsis, sepsis features but given tachycardia, encephalopathy - Lactic acid ordered - Inflammatory markers ordered Hyperglycemia - Ketones negative - Monitor with sliding scale Dehydration, IV fluids Abnormal dilatation of right ureter - No kidney stone seen on CAT scan - Significant against unclear - Order renal ultrasound - Follow urine output Full code Lovenox for DVT prophylaxis PDMP PDMP Reviewed: Not Reviewed Attestations 2 Medical Necessity Statement*: Patient requires hospitalization, inpatient, greater than 2 midnights for acute encephalopathy, right pyelonephritis, right abnormal ureteral dilatation, sepsis Diagnoses SVT (supraventricular tachycardia) I47.10 Coronary artery disease I25.10 Primary hypertension I10 Hypertension type: primary hypertension Altered mental status R41.82 Pyelonephritis N12 Hyperglycemia R73.9 Right ureter dilated N28.82 Sepsis A41.9
[2024-12-06] MEDS: piperacillin-tazobactam 3.375 GM in sodium chloride 0.9% (plus) 50 ML IV (18:44)
[2024-12-06 19:03] LABS: Troponin(5th) Baseline 61 ng/L (0-10)
[2024-12-06 19:04] LABS: C Reactive Protein 23.1 mg/L (0.0-4.9)
[2024-12-06 19:11] LABS: Procalcitonin 8.73 ng/mL (0-0.5)
--- NOTE | 2024-12-06 19:45 | ECG_ITS ---
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
--- NOTE | 2024-12-06 23:18 | ECG_ITS ---
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
[2024-12-06 23:51] LABS: Thyroid Stimulating Hormone 2.32 uIU/mL (0.27-4.20)
[2024-12-06 23:55] LABS: Amphetamines Screen Urine Negative (Negative); Barbiturates Screen Urine Negative (Negative); Benzodiazepines Screen Urine Positive (Negative); Cocaine Screen Urine Negative (Negative); Opiate Screen Urine Negative (Negative); PCP Screen Urine Negative (Negative); THC Screen Urine Negative (Negative)
[2024-12-06 23:59] LABS: Alcohol Level < 10 mg/dL (0-10)
[2024-12-07] VITALS (67 sets, daily range): BP systolic 61–145; BP diastolic 40–70; PULSE 92–127; RESP 5–29; TEMP 36.4–37.7; O2SAT 80–99; BMI 36.3
[2024-12-07 00:35] LABS: Estmated Average Glucose 349; Hemoglobin A1C 13.8 % (4.0-6.0)
[2024-12-07] MEDS: enoxaparin 40 mg/0.4 mL Syringe SUBCUT ×2 (00:44→20:31)
[2024-12-07] MEDS: vancomycin 1,750 MG/350 ML PIGGYBACK 175 MG IV (00:58)
[2024-12-07] MEDS: sodium chloride 0.9% 1,000 ML 100 ML IV ×2 (01:58→20:32)
[2024-12-07] MEDS: pantoprazole 40 mg SDV IVP ×2 (01:58→20:31)
[2024-12-07 02:34] LABS: Basophils # 0.1 10^3/uL (0.0-0.1); Basophils % 0.4 %; Eosinophils # 4.3 10^3/uL (0.0-0.8); Eosinophils % 17.1 %; Hematocrit 43.8 % (36-47); Lymphocytes # 0.7 10^3/uL (0.8-4.8); Lymphocytes % 2.7 %; Mean Corpuscular HGB Conc 31.7 g/dL (30-55); Mean Corpuscular Hemoglobin 27.1 pg (27-33); Mean Corpuscular Volume 85.5 fl (85-98); Monocytes # 1.5 10^3/uL (0.2-0.9); Monocytes % 5.9 %; Neutrophils # 18.48 10^3/uL (1.8-7.7); Neutrophils % 73.3 %; Nucleated Red Blood Cells % 0 %; Platelet Count 384 10^3/cmm (157-399); Red Blood Count 5.12 10^6/uL (3.85-5.65); Red Cell Distribution Width 15.1 % (12.1-15.1); White Blood Count 25.19 10^3/uL (3.29-11.43)
[2024-12-07 02:52] LABS: Troponin 5 6HR 63.35 ng/L (0-10); Troponin 5 6HR Delta 2.35 ng/L (0-12)
[2024-12-07 03:03] LABS: Alanine Aminotransferase 10 U/L (0-33); Albumin Level 3.8 g/dL (3.5-5.2); Alkaline Phosphatase 186 U/L (35-105); Anion Gap 20.6 (5-19); Aspartate Amino Transferase 20 U/L (0-32); Blood Urea Nitrogen 16 mg/dL (8-23); Calcium 9.5 mg/dL (8.5-10.5); Carbon Dioxide 24 mmol/L (22-29); Chloride 97 mmol/L (98-107); Creatinine Clr Calc Pharmacy 48.7996; Globulin 3.4 g/dL (1.3-4.6); Glomerular Filtration Rate 54.8 mL/min (90-130); Glucose 368 mg/dL (65-115); Osmolality Calculated 300 mOsm/kg (285-295); Potassium 4.6 mmol/L (3.5-5.1); Sodium 137 mmol/L (136-145); Total Bilirubin 0.7 mg/dL (0.15-1.2); Total Protein 7.2 g/dL (6.6-8.7)
[2024-12-07] MEDS: piperacillin-tazobactam 3.375 GM in sodium chloride 0.9% (plus) 50 ML IV ×2 (03:22→17:17)
[2024-12-07 05:54] LABS: Acinetobacter baumannii Not Detected (NOT DETECT); Bacteroides fragilis Not Detected (NOT DETECT); CTX-M Not Detected (NOT DETECT); Citrobacter Not Detected (NOT DETECT); Cronobacter sakazakii Not Detected (NOT DETECT); Enterobacter cloacae complex Not Detected (NOT DETECT); Enterobacter non cloacae Not Detected (NOT DETECT); Fusobacterium necrophorum Not Detected (NOT DETECT); Fusobacterium nucleatum Not Detected (NOT DETECT); Haemophilus influenzae Not Detected (NOT DETECT); IMP Resistance Gene Not Detected (NOT DETECT); KPC Resistance Gene Not Detected (NOT DETECT); Klebsiella pneumoniae group Not Detected (NOT DETECT); Morganella morganii Not Detected (NOT DETECT); NDM Resistance Gene Not Detected (NOT DETECT); Neisseria meningitidis Not Detected (NOT DETECT); OXA Resistance Gene Not Detected (NOT DETECT); Pan Candida Not Detected (NOT DETECT); Pan Gram-Positive Not Detected (NOT DETECT); Proteus mirabilis Not Detected (NOT DETECT); Pseudomonas aeruginosa Not Detected (NOT DETECT); Salmonella Not Detected (NOT DETECT); Serratia Not Detected (NOT DETECT); Serratia marcescens Not Detected (NOT DETECT); Stenotrophomonas maltophilia Not Detected (NOT DETECT); VIM Resistance Gene Not Detected (NOT DETECT)
--- OUTSIDE RECORDS SUMMARY | 2024-12-07 06:31 | XMS_ITS | Patient Health Record ---
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 Name Role Phone Jana Brito Primary Care Provider Cee Bean APRN Unavailable Jessie Mijares Unavailable [phone] Allergies Allergen (clinical drug ingredient) Drug/Non Drug Allergy documented on EMR Reaction Allergy Type Onset Date Status Acetaminophen / Hydrocodone Acetaminophen / Hydrocodone (uncoded) , Allergy Active MetFORMIN HCl (metFORMIN) (uncoded) Unknown Allergy 7 Active rofecoxib rofecoxib (uncoded) , Allergy Active Ativan (LORazepam) Unknown Drug Allergy Active Benadryl Allergy (diphenhydramine hcl) Unknown Drug Allergy 4 Active diazepam Diazepam , Drug Allergy Active Lortab (acetaminophen-HYDRO codone) Unknown Drug Allergy Active Lipitor (atorvastatin) Unknown Drug Allergy 4 Active lorazepam Lorazepam , Drug Allergy Active meloxicam meloxicam , Drug Allergy Active paroxetine PAXIL Unknown Drug Allergy 4 Active sulfamethoxazole / trimethoprim sulfamethoxazole-tri methoprim Unknown Drug Allergy Active Valium (diazepam) Unknown Drug Allergy Active Zoloft (sertraline) Unknown Drug Allergy Active amitriptyline Amitriptyline , Drug Allergy Active atorvastatin atorvastatin , Chest pain (finding) , Drug Allergy Active desvenlafaxine Desvenlafaxine , Drug Allergy Active diphenhydramine Diphenhydramine , Drug Allergy Active hydrocodone Hydrocodone , Drug Allergy Act yazmin metformin metformin , Chest pain (finding) , Dizziness and giddiness (finding) , Drug Allergy Active moxifloxacin moxifloxacin , Drug Allergy A ctive paroxetine Paroxetine , Drug Allergy Activ e rofecoxib Vioxx (rofecoxib) Unknown Drug Allergy Active sertraline Sertraline , Drug Allergy Activ e sulfamethoxazole / trimethoprim Sulfamethoxazole/Tri methoprim , Indigestion (finding) , Drug Allergy Active Results Component Value Reference Range Notes [place]rep [place] A 62159 Reviewed date:02/13/2024 09:45:40 AM Interpretation: Performing Lab: Notes/Report: Strep Screen A negative CBC w\ Auto Diff [id number] Reviewed date:02/13/2024 10:18:21 AM Interpretation: Performing Lab: Notes/Report: Diagnosis Description: Other fatigue WBC 8.4 4.5-11.0 X10'3 RBC 4.60 4.00-5.20 X10'6 Hgb 12.7 12.0-16.0 G/DL Hct 40.6 36.0-46.0 % MCV 88.3 80.0-100.0 FL MCH 27.6 27.0-31.0 PG MCHC 31.3 31.0-37.0 G/DL Platelet 368 150-400 X10'3 RDW-SD 48.3 35.0-49.0 FL RDW-CV 15.2 12.2-15.6 % MPV 11.6 9.2-12.0 FL Neutro Auto% 52.2 40.0-70.0 % Lymph Auto% 34.9 22.0-44.0 % Tw[place]gs Auto% 6.3 3.0-7.0 % Eos Auto% 5.0 2.0-4.0 % Baso Auto% 1.1 0.0-1.0 % Imm Gran% .5 .0-.4 % Neutro Abs 4.40 .80-7.70 Absolute Neutrophil Count 4400 Lymph Abs 2.94 .10-4.10 [place] Abs .53 .20-1.00 Eos Abs .42 .00-.40 Baso Abs .09 .00-.20 Imm Gran Abs .04 .00-.10 NRBC# .00 .00-.20 X10'3 NRBC% .00 .00-.20 /100 int act WBC's Comprehensive Metabolic Pane l (CMP) [id number] Reviewed date:02/13/2024 03:42:21 PM Interpretation: Performing Lab: Notes/Report: Diagnosis Description: Other fatigue Glucose Serum 444 71-110 MG/DL Faxed to doctor's office AM shift to follow up 02/07/2024 21:27:13 Ronald. Testing performed at [facility], [address] [place] [address] [address] [place] [address]. CLIA ID#: [id number] BUN 18 7-21 MG/DL Creat .66 .51-1.17 MG/DL A-pcbsnz-p-benzoquinone imine (NAPQI) is a metabolite of acetaminophen, NAPQI concentrations of apparoximately 10 mg/L correlation to toxic levels of acetaminophen demonstrates a greater than or equil to 10% change in results. NAPQI concentrations greater than this may lead to falsely depressed results for patient samples. Use of this assay is not recommended for patients undergoing treatment with phenindione, due to the potential for falsely depressed results. GFR 94.5 Calculation per formed from GFR calculator provided by the [employer]. Glomerular Filtration rate(GRF) is the best overall index of kidney function. Normal GFR varies according to age,sex, body size, and declines with age. The National [employer] recommends using the CKD-EPI Creatinine Equation(2020) to estimate GFR. BUN/Creat Ratio 27.3 12.0-20.0 % Total Protein 7.0 5.8-8.0 G/DL Albumin 4.4 3.2-4.8 G/DL Globulin 2.6 2.3-3.5 G/DL Alb/Glob 1.7 0.8-2.2 Calcium 9.5 8.7-10.4 MG/DL Sodium 132 136-145 MMOL/L Potassium 5.3 3.5-5.1 MMOL/L Chloride 95 98-107 MMOL/L CO2 28.4 20.0-31.0 MMOL/L Anion Gap 14 5-15 Alk Phos 221 46-116 Bili Total .4 .3-1.2 MG/DL Use of this ass ay is not recommended for patients undergoing treatment with eltrombopag due to the potential for falsely elevated results. AST/SGOT 28 15-37 UNIT/L ALT/SGPT 19 12-78 UNIT/L Osmo Serum,Calculated 295 280-300 MOSM/KG Influenza A/B PCR-- [id number] Reviewed date:02/13/2024 09:40:36 AM Interpretation: Performing Lab: Notes/Report: Influenza B PCR negative Influenza A PCR negative Urinalysis--[id number] Reviewed date:02/13/2024 09:40:01 AM Interpretation: Performing Lab: Notes/Report: Specific gravity UA 1.025 Urine Nitrite negative Color UA yellow Urine Blood negative Clarity UA clear Urine pH 6.0 Urine Glucose 3 Urine Leukocyte negative Urine Protein negative Urine Bilirubin negative Urine Ketone negative COVID 19 PCR--[id number] Reviewed date:02/13/2024 09:46:05 AM Interpretation: Performing Lab: Notes/Report: COVID 19 PCR negative BLANKA Glucose Capillary--[id number] Reviewed date:02/13/2024 09:39:10 AM Interpretation: Performing Lab: Notes/Report: BLANKA Glucose Capillary 430 Knee Min 3V Left-13749 Reviewed date:11/26/2024 06:05:21 AM Interpretation: Performing Lab: Notes/Report: See Below For Report Knee Min 3V Left Read See Below For Report Reason For Referral No Information Medications Medication SIG (Take, Route, Frequency, Duration) Notes Start Date End Date Status Pioglitazone HCl 45 mg TAKE ONE TABLET B Y MOUTH EVERY DAY for 90 Active Levemir FlexPen 100 UNIT/ML 50 units Subcutaneous daily Active Montelukast Sodium 10 MG 1 tablet Orally Once a day Active Pioglitazone HCl 30 MG 1 tablet Orally Once a day Active Esomeprazole Magnesium 40 MG 1 capsule Orally Once a day Active glipiZIDE ER 10 MG 2 tablets with break fast Orally Once a day for 30 days Active ALPRAZolam 1 MG 1 tablet Orally Twic e a day Active Problems Problem Type SNOMED Code ICD Code Onset Dates Problem Status W/U Status Risk Notes Problem Diabetes mellitus uncontrolled (236933676) Uncontrolled diabetes mellitus (E11.65) Active confirmed Problem COPD - Chronic obstructive pulmonary disease (05056490) COPD (chronic obstructive pulmonary disease) (J44.9) Active confirmed Problem Seasonal allergy (667612044) Seasonal allergies (J30.2) Active confirmed Problem Angina co-occurrent and due to coronary arteriosclerosis (disorder) (0370281008823924 2) Atherosclerotic heart disease of curyung coronary artery with other forms of angina pectoris (I25.118) Active confirmed [id number] m ed Description:Kathy nary arteriosclerosis Problem Essential hypertension (55173861) Essential primary hypertension (I10) Active confirmed [id number] m ed Description:Esse ntial hypertension Vital Signs Heart Rate 105 /min 02/07/2024 Temperature 98.4 degrees Fahrenheit 02/07/2024 Respiratory Rate 20 /min 02/07/2024 Oximetry 91 % 02/07/2024 Blood pressure diastolic 56 mm Hg 02/07/2024 Weight-kg 122.47 kg 02/07/2024 Height 59 in 02/07/2024 Blood pressure systolic 88 mm Hg 02/07/2024 Weight 270 lbs 02/07/2024 BMI 54.53 kg/m2 02/07/2024 Encounters Encounter Location Date Provider Diagnosis [facility] Office [address] [place] [address] 02/07/2024 Jessie Paul Fatigue R53.83 and Uncontrolled diabetes mellitus E11.65 [facility] Office [address] [place] [address] 02/22/2024 Jessie Paul Assessments Encounter Date Diagnosis (ICD Code) Assessment Notes Treatment Notes Treatment Clinical Notes Section Notes 02/07/2024 Uncontrolled diabetes mellitus (ICD-10 - E11.65) Will increase Glipizide to 10 mg 2 tabs daily, pt is to follow up with Anabell Hall APRN (PCP) next week. 02/07/2024 Fatigue (ICD-10 - R53.83) 02/07/2024 Other Venipuncture performed. Left hand. One attempt. Pt tolerated well, bleeding controlled with light dressing.Haven Hernadnez LPN Plan Of Treatment No Information Insurance Providers Payer Name Payer Address Payer Phone Subscriber Number Group Number Insured Name Patient Relationship to Insured Coverage Start Date Coverage End Date [place] Medicare [address] [place] [phone] [id number] Sabrina Delvalle Self - patient is the insured [place] Medicaid [address] [place] [id number] Sabrina Delvalle Self - patient is the insured Medical (General) History Medical History History ICD Code Problem:Anxiety (finding) , Status :: Ac tive Problem:Benign hypertension (disorder) , Status :: Active Problem:Chronic fatigue syndrome (disord er) , Status :: Active Problem:Chronic obstructive lung disease (disorder) , Status :: Active Problem:Coronary arteriosclerosis (disor claudia) , Status :: Active Problem:Degeneration of cerv ical intervertebral disc (disorder) , Status :: Active Problem:Desaturation of blood (disorder) , Status :: Active Problem:Diabetes mellitus type 2 (disord er) , Status :: Active Problem:Diabetic neuropathy (disorder) , Status :: Active Problem:Diastolic heart failure (disorde r) , Status :: Active Problem:Gastroesophageal reflux disease (disorder) , Status :: Active Problem:Impaired mobility (finding) , St atus :: Active Problem:Iron deficiency anemia (disorder ) , Status :: Active Problem:Mixed hyperlipidemia (disorder) , Status :: Active Problem:Nicotine dependence (disorder) , Status :: Active Problem:Obesity (disorder) , Status :: A ctive Problem:Osteoarthritis -multiple joint ( disorder) , Status :: Active Problem:Patient non-complian ce - general (context-dependent category) , Status :: Active Problem: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
[2024-12-07 08:07] LABS: Glucose Point of Care 367 mg/dL (70-110)
[2024-12-07] MEDS: nystatin powder 15 gm Btl 1 APPLIC TOPICAL ×2 (09:05→17:18)
[2024-12-07] MEDS: insulin lispro 100 unit/1 mL SUBCUT ×2 (09:05→20:32)
--- NOTE | 2024-12-07 10:56 | PHA.VACGOAL ---
Vancomycin Goal - Goal Vancomycin Goal:: 15-20 mg/L Vancomycin Indication:: Other (Pyelonephritis/Sepsis) - Therapy Current therapy:: Pip/Tazo Day of therpy:: Day [1]of [] . Actual body weight (kg): 84.538 kg - Data Labs: WBC 25.19 10^3/uL (3.29-11.43) H 12/07/24 02:28 RBC 5.12 10^6/uL (3.85-5.65) 12/07/24 02:28 Hgb 13.90 g/dL (11.27-16.99) 12/07/24 02:28 Hct 43.8 % (36-47) 12/07/24 02:28 MCV 85.5 fl (85-98) 12/07/24 02:28 MCH 27.1 pg (27-33) 12/07/24 02:28 MCHC 31.7 g/dL (30-55) 12/07/24 02:28 RDW 15.1 % (12.1-15.1) 12/07/24 02:28 Sodium 137 mmol/L (136-145) 12/07/24 02:28 Potassium 4.6 mmol/L (3.5-5.1) 12/07/24 02:28 Chloride 97 mmol/L (98-107) L 12/07/24 02:28 Carbon Dioxide 24 mmol/L (22-29) 12/07/24 02:28 Anion Gap 20.6 (5-19) H 12/07/24 02:28 BUN 16 mg/dL (8-23) 12/07/24 02:28 Creatinine 1.0 mg/dL (0.5-0.9) H 12/07/24 02:28 GFR Calculation 54.8 mL/min (90-130) L 12/07/24 02:28 Treatment plan:: new consult Regimen:: New start vancomycin for Pyelonephritis/sepsis. No prior vancomycin history found. Load dose of 1750 given in ER @0100 12/07. Started on maintenance dose of 1250 mg q24h.
[2024-12-07 11:23] LABS: Glucose Point of Care 306 mg/dL (70-110)
[2024-12-07 12:25] LABS: Lactic Sepsis W/Reflex 2.7 mmol/L (0.5-2.2)
[2024-12-07 12:27] LABS: Reflex Lactate Order REFLEX LACTIC ORDERD
[2024-12-07] MEDS: midodrine 5 mg TABLET 10 MG PO (12:55)
[2024-12-07] MEDS: lactated ringers 500 ML 999 ML IV (12:55)
--- NOTE | 2024-12-07 13:54 | P.PN_ITS ---
Subjective 2 Subjective: - Patient was seen this morning blood pr essures are soft this morning 100/52 - She is more confused this morning comp ared to yesterday evening - She is alert to person, not to place, to time she can follow commands, but is more dazed and confused this morning, more encephalopathic -Pupils equal round react to light, she localizes pain, currently on nasal cannula, heart rates in the low 100s, sinus tachycardia - She denies any chest pain, no shortnes s of breath, does have bilateral low back pain - Reviewed renal ultrasound results, matty gallardo has right pelviectasis, only left ureteral jet was visualized - White blood cell count increased to 25 ,000 - Reviewed CT scan with radiology, no ki dney stone seen, but does have abnormal dilatation of right ureter, could be underlying mass it is difficult to see on CT imaging, does have right perinephric stranding, right renal pelvis dilatation - With increased leukocytosis, blood pre ssures being soft, worsening mentation concerns for obstructive uropathy, sepsis, pyelonephritis, UTI, septic encephalopathy - Patient will need to be transferred r urology evaluation - Spoke to [facility], transfer line , need for transfer for urology evaluation - Spoke to [facility], spoke to [facility] nurse practitioner, Мария, patient has been accepted, awaiting bed - Lactic acid 2.7, will give 500 mL bolu s, started midodrine 10 every 6 hours -Creatinine 1.0 - Monitor hemodynamics closely - Continue fluid therapy, continue broad -spectrum biotic therapy, monitor mentation keep n.p.o. - Blood cultures now show E. coli specie s 2 out of 3, continue Zosyn Vitals/I&O/Wt Last Vital Signs Temp 97.5 F L 12/07/24 12:00 Pulse 99 12/07/24 12:00 Resp 22 H 12/07/24 12:00 BP 100/51 12/07/24 12:00 Pulse Ox 93 12/07/24 12:00 O2 Del Method Nasal Cannula 12/07/24 12:00 O2 Flow Rate 4 12/07/24 06:25 12/06/24 12/07/24 12/07/24 22:59 06:59 14:59 Intake Total 0 / 0 400 / 400 1550 / 1550 Balance 0 / 0 400 / 400 1550 / 1550 Weight last 48 hrs Weight 84.538 kg Weight 79.379 kg Physical Exam 2 Const: COMMON NORMALS: no acute distress EXAM LIMITATIONS: altered mental status ORIENTATION/CONSCIOUSNESS: Yes awake, Yes oriented to person and Yes confused; not oriented to place and not oriented to time Eye: COMMON NORMALS: Equal, round and reactive pupils present PUPIL: Yes Equal, round and reactive pupils present Resp: COMMON NORMALS: normal respiratory effort, No retractions, No use of accessory muscles and clear to auscultation bilaterally AUSCULTATION: clear to auscultation bilaterally Cardio: COMMON NORMALS: regular rate, regular rhythm, S1 normal heart sound present and S2 normal heart sound present RATE: regular rate RHYTHM: r egular rhythm HEART SOUNDS: S1 normal heart sound present and S2 normal heart sound present GI: COMMON NORMALS: Normal to inspection, nondistended, normoactive bowel sounds present and non-tender : OTHER: Bilateral CVA tenderness Extremity: COMMON NORMALS: no pedal edema Neuro: SENSORIUM/ORIENTATION: Yes oriented to person, No oriented to place and No oriented to time Skin: NARRATIVE SKIN EXAM: Sepsis examination - Done 12/07/2024 - Performed at 9 AM - DP PT pulses diminished bilaterally, c ap refill less than 2 seconds, no mottling Urinary Catheter Management: Leigh: Cath Placed During This Visit: yes Reason for Continuing Indwelling Catheter: Accurate Measurement of Urinary Output in Critically Ill Patients Urinary Catheter Date of Insertion: 12/07/24 Urinary Catheter Time of Insertion: 02:47 Data 12/07/24 02:28 12/07/24 02:28 Micro: Microbiology 12/06/24 16:43 Blood Culture - Preliminary Blood Escherichia coli 12/06/24 16:43 Blood Culture - Preliminary Blood SPECIMEN COLLECTED A&P Assessment and plan (1) SVT (supraventricular tachycardia): (2) Coronary artery disease: (3) Hypertension: (4) Altered mental status: (5) Pyelonephritis: (6) Hyperglycemia: (7) Right ureter dilated: (8) Sepsis: Plan Acute encephalopathy - Likely secondary to UTI, pyelonephritis, sepsis, E. coli bacteremia - Monitor mentation - CT head within normal limits - Neurochecks - Keep n.p.o. E. coli bacteremia - 2 out of 3 blood cultures positive - Likely sec to UTI, pyelonephritis - Concerns for obstructive uropathy - Continue broad-spectrum antibiotic therapy - Follow repeat blood cultures UTI, pyelonephritis -With concerns for obstructive uropathy - History of Enterococcus UTI - Evaluated CRP 20, Pro-Geovanny 8 - Continue vancomycin, Zosyn - Follow urine culture - Follow-up cultures Sepsis, sepsis features but given tachycardia, encephalopathy - Lactic acid 2.7 - Continue fluids 100 cc/h, bilateral mL bolus, midodrine 10 every 6 Lactic acid 2.7, IV fluids, fluid bolus, midodrine Hyperglycemia with type 2 diabetes, A1c 13.8 - Ketones negative - Monitor with sliding scale Dehydration, IV fluids Acute kidney injury, IV fluids - Likely secondary to sepsis Abnormal dilatation of right ureter -Concerns for obstructive uropathy -CT scan abdomen pelvis - CT/CT abdomen pelvis wo con [id number] IMPRESSION: Abnormal dilatation of the right ureter of uncertain etiology Ultrasound renal - US/US renal BI* [id number] IMPRESSION: Mild right-sided pelviectasis. Only the left ureteral jet is visualized. - With E. coli bacteremia, encephalopathy, LATOYA highly suspicious for obstructive uropathy - Follow urine output - Leigh catheter in place NSTEMI, serial EKGs, serial troponins, telemetry monitoring - Likely secondary to sepsis Full code Lovenox for DVT prophylaxis Plan for today as above, continue IV antibiotics, IV fluids, midodrine, PICC line placement, keep n.p.o., plan PDMP PDMP Reviewed: Not Reviewed Attestations 2 Medical Necessity Statement*: Patient requires hospitalization, for sepsis, obstructive uropathy, UTI, pyelonephritis, acute encephalopathy, NSTEMI Diagnoses SVT (supraventricular tachycardia) I47.10 Coronary artery disease I25.10 Primary hypertension I10 Hypertension type: primary hypertension Altered mental status R41.82 Pyelonephritis N12 Hyperglycemia R73.9 Right ureter dilated N28.82 Sepsis A41.9
--- NOTE | 2024-12-07 14:26 | PM.TDS ---
Transfer Summary Providers Date of Admission: 12/06/24 23:18 Date of Discharge/Transfer: 12/10/24 Attending Provider at Admission: Uli Lai MD Attending Provider at Transfer: Uli Lai MD Transfer Plans: Anticipated date of transfer: 12/10/24. Diagnoses at Discharge Discharge Diagnosis (1) SVT (supraventricular tachycardia): Status: Acute (2) Coronary artery disease: Status: Acute (3) Hypertension: Status: Chronic Qualifiers: Hypertension type: primary hypertension Qualified Code(s): I10 - Essential (primary) hypertension (4) Altered mental status: Status: Acute (5) Pyelonephritis: Status: Acute (6) Hyperglycemia: Status: Acute (7) Right ureter dilated: Status: Acute (8) Sepsis: Status: Acute Reason for Visit Reason for Visit lower back/abdominal pain Hospital Course Hospital Course Sabrina Delvalle is a 69 year old female with a past medical history of COPD, on chronic O2, CAD, hypertension, SVT Who presents [facility] for abdominal pain, bilateral flank pain, nausea, vomiting, fatigue, malaise. Currently patient is alert to person, place, time she follows commands, during our conversation she does become confused at times, but is easily redirectable, she tells me that she lives in [place], she lives by herself, she today started to have nausea, vomiting, abdominal pain, flank pain, no dysuria, hematuria she tells me that she sometimes uses her insulin, her blood sugars are quite elevated, does report subjective fevers, chills, lightheadedness, no chest pain, no palpitations, denies a history of kidney stones, Patient was admitted to [facility] for acute encephalopathy, UTI/pyelonephritis, E. coli bacteremia, lactic acidosis, with sepsis, with abnormal dilatation of right ureter (no kidney stone seen), with LATOYA, with dehydration. She was monitored as inpatient, received broad-spectrum antibiotic therapy, IV fluid therapy, and clinical monitoring. Unfortunately, patient's clinical condition slowly started to deteriorate despite optimal medical therapy, developed septic shock, worsening acute renal failure, requiring ICU admission, PICC line placement, and IV pressors. Patient was transferred to tertiary level center for urology evaluation for concerns for obstructive uropathy with right ureteral dilatation. Acute encephalopathy - Likely secondary to UTI, pyelonephritis, sepsis, E. coli bacteremia - Monitor mentation - CT head within normal limits - Neurochecks - Keep n.p.o. E. coli bacteremia - 2 out of 3 blood cultures positive - Likely sec to UTI, pyelonephritis - Concerns for obstructive uropathy - Continue broad-spectrum antibiotic therapy - Follow repeat blood cultures UTI, pyelonephritis -With concerns for obstructive uropathy - History of Enterococcus UTI - Evaluated CRP 20, Pro-Geovanny 8 - Continue vancomycin, Zosyn - Follow urine culture - Follow-up cultures Sepsis, sepsis features but given tachycardia, encephalopathy - Lactic acid 2.7 - Continue fluids 100 cc/h, bilateral mL bolus, midodrine 10 every 6 Lactic acid 2.7, IV fluids, fluid bolus, midodrine Hyperglycemia with type 2 diabetes, A1c 13.8 - Ketones negative - Monitor with sliding scale Dehydration, IV fluids Acute kidney injury, IV fluids - Likely secondary to sepsis Abnormal dilatation of right ureter -Concerns for obstructive uropathy -CT scan abdomen pelvis - CT/CT abdomen pelvis wo con [id number] IMPRESSION: Abnormal dilatation of the right ureter of uncertain etiology Ultrasound renal - US/US renal BI* [id number] IMPRESSION: Mild right-sided pelviectasis. Only the left ureteral jet is visualized. - With E. coli bacteremia, encephalopathy, LATOYA highly suspicious for obstructive uropathy - Follow urine output - Leigh catheter in place NSTEMI, serial EKGs, serial troponins, telemetry monitoring - Likely secondary to sepsis Physical Exam Const: COMMON NORMALS: no acute distress ORIENTATION/CONSCIOUSNESS: Yes awake, Yes oriented to person and Yes confused; not oriented to place and not oriented to time Resp: COMMON NORMALS: normal respiratory effort, No retractions, No use of accessory muscles and clear to auscultation bilaterally AUSCULTATION: clear to auscultation bilaterally Cardio: COMMON NORMALS: regular rate, regular rhythm, S1 normal heart sound present and S2 normal heart sound present RATE: regular rate RHYTHM: regular rhythm HEART SOUNDS: S1 normal heart sound present and S2 normal heart sound present GI: COMMON NORMALS: Normal to inspection, nondistended, normoactive bowel sounds present and non-tender Extremity: COMMON NORMALS: no pedal edema Neuro: SENSORIUM/ORIENTATION: Yes oriented to person, No oriented to place and No oriented to time Urinary Catheter Management: Leigh: Cath Placed During This Visit: yes Reason for Continuing Indwelling Catheter: Accurate Measurement of Urinary Output in Critically Ill Patients Urinary Catheter Date of Insertion: 12/07/24 Urinary Catheter Time of Insertion: 02:47 TS Data Studies Completed and Pending Pending at discharge Category Date Time Status Blood Culture Stat Lab 12/06/24 16:43 Results Blood Culture Stat Lab 12/08/24 06:00 Ordered Complete Blood Count w/Auto AM LABS Lab 12/08/24 04:00 Ordered Complete Blood Count w/Auto AM LABS Lab 12/09/24 04:00 Ordered Comprehensive Metabolic Panel AM LABS Lab 12/08/24 04:00 Ordered Comprehensive Metabolic Panel AM LABS Lab 12/09/24 04:00 Ordered Lactic Acid level (Lactate) Stat Lab 12/07/24 14:54 Ordered Urine Culture Stat Lab 12/06/24 15:36 Received Completed Studies During Hospitalization Category Date Time Status CT abdomen pelvis wo con [id number] Stat Cat Scan 12/06/24 16:[address] head wo con* [id number] Stat Cat Scan 12/06/24 18:29 Completed XR chest 1V portable [id number] Stat Exams 12/06/24 15:28 Completed US renal BI* [id number] Stat Ultrasound 12/06/24 18:29 Completed Laboratory Last Values WBC 25.19 10^3/uL (3.29-11.43) H 12/07/24 02:28 RBC 5.12 10^6/uL (3.85-5.65) 12/07/24 02:28 Hgb 13.90 g/dL (11.27-16.99) 12/07/24 02:28 Hct 43.8 % (36-47) 12/07/24 02:28 MCV 85.5 fl (85-98) 12/07/24 02:28 MCH 27.1 pg (27-33) 12/07/24 02:28 MCHC 31.7 g/dL (30-55) 12/07/24 02:28 RDW 15.1 % (12.1-15.1) 12/07/24 02:28 Plt Count 384 10^3/cmm (157-399) 12/07/24 02:28 MPV 10.0 fL (7.4-10.4) 12/07/24 02:28 Neut % (Auto) 73.3 % 12/07/24 02:28 Lymph % (Auto) 2.7 % 12/07/24 02:28 Loíza % (Auto) 5.9 % 12/07/24 02:28 Eos % (Auto) 17.1 % 12/07/24 02:28 Baso % (Auto) 0.4 % 12/07/24 02:28 Neut # (Auto) 18.48 10^3/uL (1.8-7.7) H 12/07/24 02:28 Lymph # (Auto) 0.7 10^3/uL (0.8-4.8) L 12/07/24 02:28 Loíza # (Auto) 1.5 10^3/uL (0.2-0.9) H 12/07/24 02:28 Eos # (Auto) 4.3 10^3/uL (0.0-0.8) H 12/07/24 02:28 Baso # (Auto) 0.1 10^3/uL (0.0-0.1) 12/07/24 02:28 Nucleated RBC % (auto) 0 % 12/07/24 02: Nucleated RBCs # 0.0 /100WBC 12/07/24 02:28 Specimen Type Arterial 12/06/24 15:33 Sample Site Radial, right 12/06/24 15:33 ABG pH 7.41 (7.35-7.45) 12/06/24 15:33 ABG pCO2 42.1 mmHg (35-45) 12/06/24 15:33 ABG pO2 78.0 mmHg (80.0-100.0) L 12/06/24 15:33 ABG HCO3 26.8 mmol/L (22-26) H 12/06/24 15:33 ABG O2 Saturation 96.3 12/06/24 15:33 ABG Base Excess 1.9 mmol/L (-2.0-2.0) 12/06/24 15:33 Faustino Test Pos 12/06/24 15:33 A-a O2 Gradient 2.5 mmHg (5-10) L 12/06/24 15:33 Hematocrit 43.7 % (37-47) 12/06/24 15:33 Hgb O2 Saturation 94.0 % (95-100) L 12/06/24 15:33 Carboxyhemoglobin 1.4 %THgb (0.4-20.1) 12/06/24 15:33 Methemoglobin 1.0 % (0.4-1.5) 12/06/24 15:33 Total Hemoglobin 14.3 g/dL (12-16) 12/06/24 15:33 Sodium 137.0 mmol/L (131-143) 12/06/24 15:33 Potassium 4.5 mmol/L (3.5-5.0) 12/06/24 15:33 Glucose 476.0 mg/dL (70-115) H 12/06/24 15:33 Ionized Calcium 1.2 mmol/L (1.1-1.4) 12/06/24 15:33 O2 Delivery Device Nc 12/06/24 15:33 O2 Liters/Min 3.0 % 12/06/24 15:33 Pharmacy Resident ID [facility] 12/06/24 15:33 Sodium 137 mmol/L (136-145) 12/07/24 02:28 Potassium 4.6 mmol/L (3.5-5.1) 12/07/24 02:28 Chloride 97 mmol/L (98-107) L 12/07/24 02:28 Carbon Dioxide 24 mmol/L (22-29) 12/07/24 02:28 Anion Gap 20.6 (5-19) H 12/07/24 02:28 BUN 16 mg/dL (8-23) 12/07/24 02:28 Creatinine 1.0 mg/dL (0.5-0.9) H 12/07/24 02:28 GFR Calculation 54.8 mL/min (90-130) L 12/07/24 02:28 Glucose 368 mg/dL (65-115) H 12/07/24 02:28 POC Glucose 306 mg/dL (70-110) H 12/07/24 11:18 Estimat Average Glucose 349 12/06/24 15:52 Hemoglobin A1c 13.8 % (4.0-6.0) H 12/06/24 15:52 Calculated Osmolality 300 mOsm/kg (285-295) H 12/07/24 02:28 Lactic Acid 2.7 mmol/L (0.5-2.2) H 12/07/24 11:54 Calcium 9.5 mg/dL (8.5-10.5) 12/07/24 02:28 Total Bilirubin 0.7 mg/dL (0.15-1.2) 12/07/24 02:28 AST 20 U/L (0-32) 12/07/24 02:28 ALT 10 U/L (0-33) 12/07/24 02:28 Alkaline Phosphatase 186 U/L (35-105) H 12/07/24 02:28 Troponin T Baseline 61 ng/L (0-10) H 12/06/24 18:36 Troponin T Hi Sens 6Hr 63.35 ng/L (0-10) H 12/07/24 02:28 Troponin T Hi Sens 6Hr Delta 2.35 ng/L (0-12) 12/07/24 02:28 C-Reactive Protein 23.1 mg/L (0.0-4.9) H 12/06/24 18:36 Total Protein 7.2 g/dL (6.6-8.7) 12/07/24 02:28 Albumin 3.8 g/dL (3.5-5.2) 12/07/24 02:28 Globulin 3.4 g/dL (1.3-4.6) 12/07/24 02:28 Lipase 9 U/L (13-60) L 12/06/24 15:50 Procalcitonin 8.73 ng/mL (0-0.5) H 12/06/24 18:36 TSH 2.32 uIU/mL (0.27-4.20) 12/06/24 18:36 Urine Color Yellow (Yellow) 12/06/24 15:36 Urine Appearance Clear (CLEAR) 12/06/24 15:36 Urine pH 7.0 (5-7) 12/06/24 15:36 Ur Specific Kinney 1.018 (1.005-1.030) 12/06/24 15:36 Urine Protein Negative (Negative) 12/06/24 15:36 Urine Glucose (UA) 2+ (Normal) H 12/06/24 15:36 Urine Ketones Trace (Negative) 12/06/24 15:36 Urine Blood Negative (Negative) 12/06/24 15:36 Urine Nitrate Negative (Negative) 12/06/24 15:36 Urine Bilirubin Negative (Negative) 12/06/24 15:36 Urine Urobilinogen 0.2 mg/dL (Negative) 12/06/24 15:36 Ur Leukocyte Esterase Negative (Negative) 12/06/24 15:36 Urine RBC 0-2 /hpf (0-2) 12/06/24 15:36 Urine WBC 6-10 /hpf (0-5) 12/06/24 15:36 Ur Squamous Epith Cells 0-5 /hpf (0-5) 12/06/24 15:36 Amorphous Sediment Not Reportable 12/06/24 15:36 Urine Bacteria Exceeds /hpf (NONE) 12/06/24 15:36 Hyaline Casts 0-4 /lpf H 12/06/24 15:36 Urine Opiates Screen Negative ng/mL (Negative) 12/06/24 15:36 Ur Barbiturates Screen Negative ng/mL (Negative) 12/06/24 15:36 Ur Phencyclidine Scrn Negative ng/mL (Negative) 12/06/24 15:36 Ur Amphetamines Screen Negative ng/mL (Negative) 12/06/24 15:36 U Benzodiazepines Scrn Positive ng/mL (Negative) H 12/06/24 15:36 Urine Cocaine Screen Negative ng/mL (Negative) 12/06/24 15:36 U Marijuana (THC) Screen Negative ng/mL (Negative) 12/06/24 15:36 Ethyl Alcohol < 10 mg/dL (0-10) 12/06/24 18:36 Serum Ketones Negative (Negative) 12/06/24 15:50 Radiology Impressions Chest X-Ray 12/06/24 15:28 IMPRESSION: No acute chest pathology identified. Abdomen/Pelvis CT 12/06/24 16:30 IMPRESSION: Abnormal dilatation of the right ureter of uncertain etiology Head CT 12/06/24 18:29 IMPRESSION: No acute intracranial abnormality. Senescent changes. Renal Ultrasound 12/06/24 18:29 IMPRESSION: Mild right-sided pelviectasis. Only the left ureteral jet is visualized. Recent Clincial Data Last Vital Signs Temp 97.5 F L 12/07/24 12:00 Pulse 99 12/07/24 12:00 Resp 22 H 12/07/24 12:00 BP 100/51 12/07/24 12:00 Pulse Ox 93 12/07/24 12:00 O2 Del Method Nasal Cannula 12/07/24 12:00 O2 Flow Rate 4 12/07/24 06:25 Vital Signs Temp Pulse Resp BP Pulse Ox O2 Del Method O2 Flow Rate 12/07/24 12:00 97.5 F L 99 22 H 100/51 12/07/24 12:00 97.5 F L 99 22 H 100/51 93 Nasal Cannula 12/07/24 08:00 98.0 F 102 H 20 H 100/57 12/07/24 08:00 98.0 F 102 H 20 H 100/57 96 Nasal Cannula 12/07/24 06:33 Nasal Cannula 12/07/24 06:25 94 Nasal Cannula 4 12/07/24 06:20 103 H 94/61 90 12/07/24 04:52 102 H 104/65 94 Intake & Output/Weight 12/05/24 12/06/24 12/07/24 12/08/24 06:59 06:59 06:59 06:59 Intake Total 400 / 400 1550 / 1550 Balance 400 / 400 1550 / 1550 Weight 84.538 kg Vitals Last Vital Signs Temp 97.5 F L 12/07/24 12:00 Pulse 99 12/07/24 12:00 Resp 22 H 12/07/24 12:00 BP 100/51 12/07/24 12:00 Pulse Ox 93 12/07/24 12:00 O2 Del Method Nasal Cannula 12/07/24 12:00 O2 Flow Rate 4 12/07/24 06:25 TS Medications Medications Acetaminophen (Acetaminophen 325 Mg Tablet) 650 mg PO Q6H PRN PRN Reason: Mild/Mod Pain Or Temp >/= 101 Aspirin (Aspirin 81 Mg Ec Tablet) 81 mg PO DAILY [facility] Last Admin: 12/07/24 09:08 Dose: Not Given Enoxaparin Sodium (Enoxaparin 40 Mg/0.4 Ml Syringe) 40 mg SUBCUT BEDTIME [facility] Last Admin: 12/07/24 00:44 Dose: 40 mg Glucagon (Glucagon 1 Mg/Ml Kit 1 Ml) 1 mg IM ONCE PRN; Protocol PRN Reason: Adult Acute Hypoglycemia Nursing Prot. Sodium Chloride (Sodium Chloride 0.9%) 1,000 mls @ 100 mls/hr IV .Q10H [facility] Last Infusion: 12/07/24 12:54 Dose: Infused Dextrose (D5w) 500 mls @ 0 mls/hr IV ONCE PRN; Protocol PRN Reason: Adult Acute Hypoglycemia Prot Dextrose (D10w) 125 mls @ 750 mls/hr IV PRN PRN; Protocol PRN Reason: Adult Acute Hypoglycemia Nursing Protocol Dextrose (D10w) 250 mls @ 1,000 mls/hr IV PRN PRN; Protocol PRN Reason: Adult Acute Hypoglycemia Nursing Protocol Piperacillin Sod/Tazobactam (Sod 3.375 gm/ Sodium Chloride) 50 mls @ 12.5 mls/hr IV Q8H [facility] Last Admin: 12/07/24 09:01 Dose: Not Given Vancomycin HCl (Vancocin) 1,250 mg in 250 mls @ 166.667 mls/hr IV Q24H TONI Insulin Human Lispro (Insulin Lispro 100 Unit/1 Ml) 0 unit SUBCUT WM&BEDTIME [facility]; Protocol Last Admin: 12/07/24 12:54 Dose: Not Given Midodrine (Midodrine 5 Mg Tablet) 10 mg PO Q6H [facility] Last Admin: 12/07/24 12:55 Dose: 10 mg Morphine Sulfate (Morphine 4 Mg/Ml Sdv 1 Ml) 1 mg IVP Q4H PRN PRN Reason: SEVERE PAIN Naloxone HCl (Naloxone 0.4 Mg/Ml Sdv) 0.1 mg IVP Q2M PRN PRN Reason: OPIATERV Nystatin (Nystatin Powder 15 Gm Btl) 1 applic TOPICAL BID [facility] Last Admin: 12/07/24 09:05 Dose: 1 applic Ondansetron HCl (Ondansetron 2 Mg/Ml Sdv 2 Ml) 4 mg IVP Q8H PRN PRN Reason: vomiting, or N/V if npo Pantoprazole Sodium (Pantoprazole 40 Mg Sdv) 40 mg IVP BEDTIME [facility] Last Admin: 12/07/24 01:58 Dose: 40 mg Discontinued Medications Piperacillin Sod/Tazobactam (Sod 3.375 gm/ Sodium Chloride) 50 mls @ 100 mls/hr IV ONCE ONE; Protocol Stop: 12/06/24 18:36 Last Infusion: 12/07/24 02:00 Dose: Infused Vancomycin HCl (Vancocin) 1,750 mg in 350 mls @ 175 mls/hr IV ONCE ONE Stop: 12/07/24 01:44 Last Infusion: 12/07/24 03:23 Dose: Infused Lactated Ringer's (Lactated Ringers) 500 mls @ 999 mls/hr IV .Q31M ONE Stop: 12/07/24 12:54 Last Infusion: 12/07/24 13:40 Dose: Infused Allergies Biguanides Allergy (Unknown, Verified 03/26/24 05:09) Unknown amitriptyline Allergy (Verified 03/26/24 05:09) Unknown dapagliflozin (From Farxiga) Allergy (Verified 03/26/24 05:09) rash desvenlafaxine (From Pristiq) Allergy (Verified 03/26/24 05:09) worsens depression diazepam Allergy (Verified 03/26/24 05:09) Unknown diphenhydramine (From Benadryl) Allergy (Verified 03/26/24 05:09) wheezing hydrocodone Allergy (Verified 03/26/24 05:09) itching meloxicam Allergy (Verified 03/26/24 05:09) gi symptoms metformin Allergy (Verified 03/26/24 05:09) gi symptoms moxifloxacin (From Avelox) Allergy (Verified 03/26/24 05:09) Unknown rofecoxib (From Vioxx) Allergy (Verified 03/26/24 05:09) Unknown sertraline (From Zoloft) Allergy (Verified 03/26/24 05:09) worsens depression Sulfa (Sulfonamide Antibiotics) Allergy (Verified 03/26/24 05:09) gi symptoms, rash atorvastatin (From Lipitor) Adverse Reaction (Verified 03/26/24 05:09) myalgias lorazepam (From Ativan) Adverse Reaction (Verified 03/26/24 05:09) myoclonic jerking paroxetine (From Paxil) Adverse Reaction (Verified 03/26/24 05:09) worsens depression tirzepatide (From Mounjaro) Adverse Reaction (Verified 03/26/24 05:09) ADR-Diarrhea Home Medications budesonide 160 mcg-glycopyr 9 mcg-formot 4.8 mcg/actuation HFA inhaler (Breztri Aerosphere) 2 inh inhalation BID 30 days #10.7 grams 10/13/23 [Rx Confirmed 12/07/24] nitroglycerin 0.4 mg sublingual tablet 0.4 mg sublingual Q5M PRN chest pain #25 tabs 11/04/23 [Rx Confirmed 12/07/24] alprazolam 1 mg tablet 1 mg PO BID anxiety 30 days #60 tabs 03/01/24 [Rx Confirmed 12/07/24] esomeprazole magnesium 40 mg capsule,delayed release (Nexium) 40 mg PO DAILY 90 days #90 caps 03/01/24 [Rx Confirmed 12/07/24] pioglitazone 45 mg tablet (Actos) 45 mg PO DAILY 90 days #90 tabs 03/01/24 [Rx Confirmed 12/07/24] montelukast 10 mg tablet 10 mg PO DAILY 90 days #90 tabs 03/23/24 [Rx Confirmed 12/07/24] albuterol sulfate 90 mcg/actuation aerosol inhaler (Ventolin HFA) 2 puff inhalation 6XD PRN Shortness Of Breath Or Wheezing 03/26/24 [History Confirmed 12/07/24] glipizide 10 mg tablet, extended release 24 hr 20 mg PO QAM 03/26/24 [History Confirmed 12/07/24] aspirin 81 mg tablet,delayed release 81 mg PO DAILY #30 tabs 03/28/24 [Rx Confirmed 12/07/24] linaclotide 72 mcg capsule (Linzess) 72 mcg PO DAILY 11/23/24 [History Confirmed 12/07/24] solifenacin 5 mg tablet 5 mg PO DAILY 11/23/24 [History Confirmed 12/07/24] cyanocobalamin (vitamin B-12) 1,000 mcg tablet,extended release 1,000 mcg PO DAILY 12/07/24 [History Confirmed 12/07/24] Discharge Plan Discharge Patient Disposition: Xfer Other Condition: Stable Prescriptions: No Action Emmett Soler 160-9-4.8 mcg/actuation HFA aerosol inhaler 2 inh inhalation BID 30 Days Qty: 10.7 11RF pioglitazone [Actos] 45 mg tablet 45 mg PO DAILY 90 Days Qty: 90 1RF alprazolam 1 mg tablet 1 mg PO BID 30 Days Qty: 60 0RF esomeprazole magnesium [Nexium] 40 mg capsule,delayed release(DR/EC) 40 mg PO DAILY 90 Days Qty: 90 1RF nitroglycerin 0.4 mg tablet, sublingual 0.4 mg sublingual Q5M PRN (Reason: chest pain) Qty: 25 4RF Rx Instructions: do not exceed 3 doses per episode montelukast 10 mg tablet 10 mg PO DAILY 90 Days Qty: 90 1RF glipizide 10 mg tablet extended release 24hr 20 mg PO QAM albuterol sulfate [Ventolin HFA] 90 mcg/actuation HFA aerosol inhaler 2 puff inhalation 6XD PRN (Reason: Shortness Of Breath Or Wheezing) aspirin 81 mg Tablet,Delayed Release (Dr/Ec) 81 mg PO DAILY Qty: 30 0RF solifenacin 5 mg tablet 5 mg PO DAILY Linzess 72 mcg capsule 72 mcg PO DAILY cyanocobalamin (vitamin B-12) 1,000 mcg tablet extended release 1,000 mcg PO DAILY Discharge Orders: Discharge Order (Routine); Ordered 12/10/24 Ordered By: Uli Lai Discharge Diet: Cardiac Discharge Activity: Resume usual activity Transfer Attestations Time Spent in Transfer Care: greater than 30 min Quality Metrics Clinical Quality Measures [ No reported AMI, CVA or VTE this stay] Coding Level of Care Code 84415 Total time (in minutes) for Discharge: 45 Diagnoses SVT (supraventricular tachycardia) I47.10 Coronary artery disease I25.10 Primary hypertension I10 Hypertension type: primary hypertension Altered mental status R41.82 Pyelonephritis N12 Hyperglycemia R73.9 Right ureter dilated N28.82 Sepsis A41.9
--- NOTE | 2024-12-07 14:34 | XR_ITS ---
WS: [id number] Portable AP semiupright chest, 12/07/2024 Clinical Data: post PICC insertion Comparison: Portable chest, 12/06/2024 Findings: The right PICC line enters the right subclavian vein and ends in the midportion of the superior vena cava. No pneumothorax is seen. XR/XR chest 1V portable [id number] Impression: Satisfactory insertion of right PICC line.
--- NOTE | 2024-12-07 15:57 | PC.SOCIAL ---
IMM updated IMM dated and initialed copy given to patient and Copy placed in chart.
--- NOTE | 2024-12-07 16:08 | PICC.NOTE ---
Double lumen PICC placed to right brachial vein. Referred to vascular access nurse for PICC placement due to poor access and possible need for vasopressors. Urgent consent given per Dr. Lai. Pt with decreased level of consciousness and no family/friends available for consent. Left arm noted to have large infiltration due to infiltrated US guided IVs placed above AC. Right arm assessed with right brachial vein measuring 3.1 mm, straight, and apparent best choice for placement. Using sterile technique and MST, right brachial vein accessed x 1 stick. Mid-arm circumference measured 10 cm from right AC 45 cm. Trimmed cath 44 cm with 0 cm external length noted. CXR shows tip in SVC, in satisfactory position for use per radiologist. Line secured with stat-lock. Insertion site covered with Biopatch and TSM. Report given to bedside nurse, JEANNA Melendez.
[2024-12-07 16:59] LABS: Glucose Point of Care 283 mg/dL (70-110)
[2024-12-07 17:15] LABS: Lactic Acid level (Lactate) 0.8 mmol/L (0.5-2.2)
[2024-12-07] MEDS: norepinephrine 4 MG/250 ML BAG 7.5 MG IV (17:17)
--- NOTE | 2024-12-07 17:17 | PM.CCNAC ---
Critical Care Event Note The high probability of a clinically significant, sudden or life threatening deterioration of the patient's [] system(s) required my full and direct attention, intervention and personal management. The critical care time is as shown. This time is in addition to time spent performing any reported procedures but includes the following: [x] Data and vital sign review and interpretation [x] Patient assessment, examination and intervention [x] Documentation [x] Medication orders and management Critical Care Time Code activated: No Critical Care Time (min): 35 Additional information about critical care time: - Patient's blood pressure dropped to 60/48 - Orders placed to place in Trendelenburg, given 250 mL bolus - Blood pressures remain soft - Order placed to start on Levophed, PICC line has been placed - Blood cultures positive for E. coli, E. coli bacteremia - Patient likely has E. coli bacteremia, with septic shock, with UTI, pyelonephritis concerns for obstructive uropathy - Orders placed to move to ICU - Patient was seen she is alert to person, to place, not to time, she can follow some commands but remains encephalopathic - Urine put in the last 12 hours has been lackluster at 200 cc - Patient likely developing acute renal failure with septic shock - Urine output, looks serous, with a high amount of sediment - She is on 4 L, heart rates in the 90s, - Placed on 2 Levophed - Repeat blood pressure 114/60, heart rate in 90s, sinus tachycardia - On examination DP PT pulses palpable, although diminished bilaterally, cap refill greater than 2 seconds no mottling - Repeat CBC, CMP, lactic acid reflux to 0.8 Coding Level of Care Code Acute Code for Chg Erinn
[2024-12-07 19:04] LABS: Basophils # 0.1 10^3/uL (0.0-0.1); Basophils % 0.3 %; Eosinophils % 0.1 %; Hematocrit 38.4 % (36-47); Lymphocytes # 2.1 10^3/uL (0.8-4.8); Lymphocytes % 9.5 %; Mean Corpuscular HGB Conc 31.3 g/dL (30-55); Mean Corpuscular Hemoglobin 27.7 pg (27-33); Mean Corpuscular Volume 88.7 fl (85-98); Mean Platelet Volume 10.6 fL (7.4-10.4); Monocytes # 1.7 10^3/uL (0.2-0.9); Monocytes % 7.5 %; Neutrophils # 18.22 10^3/uL (1.8-7.7); Nucleated Red Blood Cells % 0 %; Platelet Count 317 10^3/cmm (157-399); Red Blood Count 4.33 10^6/uL (3.85-5.65); Red Cell Distribution Width 15.3 % (12.1-15.1); White Blood Count 22.19 10^3/uL (3.29-11.43)
[2024-12-07 19:51] LABS: Glucose Point of Care 301 mg/dL (70-110)
[2024-12-07 20:50] LABS: Alanine Aminotransferase 8 U/L (0-33); Albumin Level 3.2 g/dL (3.5-5.2); Alkaline Phosphatase 148 U/L (35-105); Blood Urea Nitrogen 25 mg/dL (8-23); Carbon Dioxide 24 mmol/L (22-29); Chloride 98 mmol/L (98-107); Creatinine Clr Calc Pharmacy 45.9136; Globulin 3.7 g/dL (1.3-4.6); Glomerular Filtration Rate 49.1 mL/min (90-130); Glucose 310 mg/dL (65-115); Osmolality Calculated 300 mOsm/kg (285-295); Sodium 137 mmol/L (136-145); Total Bilirubin 0.8 mg/dL (0.15-1.2); Total Protein 6.9 g/dL (6.6-8.7)
[2024-12-07 20:55] LABS: Anion Gap 19.4 (5-19); Aspartate Amino Transferase 15 U/L (0-32); Potassium 4.4 mmol/L (3.5-5.1)
--- NOTE | 2024-12-07 21:49 | PC.NURSE ---
Patient Transfer: [facility] called with a bed number: 6A Medical ICU room 6111. Report called to Evie MEEKS. [facility] called and accepted patient. [employer] notified. Patient departed unit at 2145 via [facility]. Person to notify, Samantha Moran, was updated on patient transferring. All belongings sent with patient.
== END 2024-12-07 21:45 | disposition short-term general hospital (02) | DRG 871 ==
LOC: ER 15:37 → ER IP 19:02 → CSU 12-07 06:31 → ICU 12-07 18:29
PROVIDERS: Admitting Provider Family Medicine; Emergency Provider Family Medicine; Visit Provider Family Medicine
DX: A41.9 Sepsis, unspecified organism (principal); G93.41 Metabolic encephalopathy; R65.21 Severe sepsis with septic shock; I21.A1 Myocardial infarction type 2; N10 Acute pyelonephritis; N17.9 Acute kidney failure, unspecified; I47.10 Supraventricular tachycardia, unspecified; E87.20 Acidosis, unspecified; B96.20 Unspecified Escherichia coli [E. coli] as the cause of diseases classified elsewhere; I25.10 Atherosclerotic heart disease of native coronary artery without angina pectoris; I10 Essential (primary) hypertension; R73.9 Hyperglycemia, unspecified; N28.82 Megaloureter; J44.9 Chronic obstructive pulmonary disease, unspecified; E86.0 Dehydration; G89.29 Other chronic pain; F41.9 Anxiety disorder, unspecified; F32.A Depression, unspecified; E66.9 Obesity, unspecified; Z68.36 Body mass index [BMI] 36.0-36.9, adult; Z79.51 Long term (current) use of inhaled steroids; Z79.82 Long term (current) use of aspirin; Z79.84 Long term (current) use of oral hypoglycemic drugs; Z95.1 Presence of aortocoronary bypass graft; Z99.81 Dependence on supplemental oxygen
CPT/HCPCS: 36415; 36416; 36573; 36600; 51702; 70450; 71045; 74176; 76770; 80051; 80053; 80306; 80307; 81001; 82009; 82330; 82805; 82962; 83036; 83605; 83690; 84145; 84443; 84484; 85025; 86140; 87040; 87077; 87086; 87150; 87186; 87205; 93005; 94664; 96365; 96372; 99285; A9270; J1650; J1815; J2470; J2543; J3372; J7030; J7120; J9999